=== PATIENT | male | born 1945 | race Caucasian/White ===

== ENCOUNTER 2019-01-18 15:57 | Inpatient (IN) | payer MEDICARE, OTHER ==
[~2019-01-18] VITALS: Ht 180.3 cm; Wt 70.9 kg
[2019-01-18 16:40] LABS: BASO % 1 % (0-3); EOS # 0.1 x10^3/uL (0.0-0.7); EOS % 4 % (0-3); HEMATOCRIT 21.5 % (39.0-53.0); HEMOGLOBIN 7.1 g/dL (13.0-17.5); LYMPH # 0.3 x10^3/uL (1.0-4.8); LYMPH % 14 % (24-48); MEAN CORPUSCULAR HEMOGLOBIN 30 pg (25-35); MEAN CORPUSCULAR HGB CONC 33 g/dL (31-37); MEAN CORPUSCULAR VOLUME 91 fL (79-100); MONO # 0.1 x10^3/uL (0.0-1.1); MONO % 4 % (0-9); NEUT # 1.8 x10^3uL (1.8-7.7); NEUT % 77 % (31-73); PLATELET COUNT 66 x10^3/uL (140-400); RED BLOOD COUNT 2.36 x10^6/uL (4.30-5.70); RED CELL DISTRIBUTION WIDTH 17.7 % (11.5-14.5); WHITE BLOOD COUNT 2.3 x10^3/uL (4.0-11.0)
--- NOTE | 2019-01-18 16:44 | PHYS DOC ---
Past Medical History Past Medical History: Diabetes-Type II, Hypertension, Renal Failure (ROD REY MD) Past Surgical History: Cholecystectomy (ROD REY MD) Adult General Chief Complaint Chief Complaint: SYNCOPE HPI HPI Patient is a 73-year-old male who presents to the emergency department for evaluation. He states he was getting hemodialysis, when he apparently passed out. He states he did not get a full dialysis session, approximately half session. He states he feels generally weak at this time. He denies any pain, including any chest pain or shortness of breath, dizziness or lightheadedness. He does appear somewhat pale. There are no alleviating or exacerbating factors to his symptoms otherwise. He does not have a history of coronary artery disease, however he is somewhat of a limited historian. There are no old records available for the patient at this facility. (ROD REY MD) Review of Systems Review of Systems Constitutional: Denies fever or chills [] Eyes: Denies change in visual acuity, redness, or eye pain [] HENT: Denies nasal congestion or sore throat [] Respiratory: Denies cough or shortness of breath [] Cardiovascular: The patient denies any shortness of breath, chest pain, palpitations, or orthopnea [] GI: Denies abdominal pain, nausea, vomiting, bloody stools or diarrhea [] : Denies dysuria or hematuria [] Musculoskeletal: Denies back pain or joint pain [] Integument: Denies rash or skin lesions [] Neurologic: Denies headache, focal weakness or sensory changes [] Endocrine: Denies polyuria or polydipsia [] All other systems were reviewed and found to be within normal limits, except as documented in this note. (ROD REY MD) Current Medications Current Medications Current Medications Medications (Trade) Dose Ordered Sig/David Start Time Stop Time Status Last Admin Dose Admin Sodium Chloride 250 ml @ 250 mls/hr 1X ONCE 01/18/19 16:45 01/18/19 17:44 DC 01/18/19 16:45 250 MLS/HR (KERMIT CHADWICK E DO) Allergies Allergies Allergies Coded Allergies Type Severity Reaction Last Updated Verified aspirin Allergy Unknown 01/18/19 Yes fish derived Allergy Unknown 01/18/19 Yes ibuprofen Allergy Unknown 01/18/19 Yes naproxen Allergy Unknown 01/18/19 Yes niacin Allergy Unknown 01/18/19 Yes nut - unspecified Allergy Unknown 01/18/19 Yes ([facility]oxanne ) Physical Exam Physical Exam PHYSICAL EXAM: CONSTITUTIONAL: Well developed, well nourished HEAD: normocephalic, atraumatic EENT: PERRL, EOMI. Conjunctivae appear pale, sclerae non-icteric; moist mucous membranes. NECK: Supple, non-tender; no meningismus. LUNGS: Lungs CTA, breathing even and unlabored. Normal air movement. HEART: Regular rate and rhythm, no murmur CHEST: No deformity; non-tender ABDOMEN: The abdomen is soft, and non-tender, no masses or bruits. EXTREM: Normal ROM; no deformity, no calf tenderness. Normal pulses palpable in all extremities. There is no pedal edema. There is an 80 fistula in the left upper extremity. SKIN: No rash; no diaphoresis NEURO: Alert; normal speech and cognition; CN's grossly intact; strength grossly intact without focal deficit. BACK: No CVA TTP. (ROD REY MD) Current Patient Data Vital Signs Vital Signs Date Time Temp Pulse Resp B/P (MAP) Pulse Ox O2 Delivery O2 Flow Rate FiO2 01/18/19 17:36 74 22 145/77 (99) 98 Room Air 01/18/19 16:[address] Lab Values Laboratory Tests Test 01/18/19 16:15 White Blood Count 2.3 x10^3/uL (4.0-11.0) L Red Blood Count 2.36 x10^6/uL (4.30-5.70) L Hemoglobin 7.1 g/dL (13.0-17.5) L Hematocrit 21.5 % (39.0-53.0) L Mean Corpuscular Volume 91 fL (79-100) Mean Corpuscular Hemoglobin 30 pg (25-35) Mean Corpuscular Hemoglobin Concent 33 g/dL (31-37) Red Cell Distribution Width 17.7 % (11.5-14.5) H Platelet Count 66 x10^3/uL (140-400) L Neutrophils (%) (Auto) 77 % (31-73) H Lymphocytes (%) (Auto) 14 % (24-48) L Monocytes (%) (Auto) 4 % (0-9) Eosinophils (%) (Auto) 4 % (0-3) H Basophils (%) (Auto) 1 % (0-3) Neutrophils # (Auto) 1.8 x10^3uL (1.8-7.7) Lymphocytes # (Auto) 0.3 x10^3/uL (1.0-4.8) L Monocytes # (Auto) 0.1 x10^3/uL (0.0-1.1) Eosinophils # (Auto) 0.1 x10^3/uL (0.0-0.7) Basophils # (Auto) 0.0 x10^3/uL (0.0-0.2) Segmented Neutrophils % 76 % (35-66) H Lymphocytes % 14 % (24-48) L Monocytes % 4 % (0-10) Eosinophils % 6 % (0-5) H Platelet Estimate Decreased (ADEQUATE) Hypochromasia Slight Anisocytosis Slight Ovalocytes Few Sodium Level 138 mmol/L (136-145) Potassium Level 4.2 mmol/L (3.5-5.1) Chloride Level 100 mmol/L (98-107) Carbon Dioxide Level 27 mmol/L (21-32) Anion Gap 11 (6-14) Blood Urea Nitrogen 41 mg/dL (8-26) H Creatinine 7.1 mg/dL (0.7-1.3) H Estimated GFR (Cockcroft-Gault) 7.6 BUN/Creatinine Ratio 6 (6-20) Glucose Level 116 mg/dL (70-99) H Calcium Level 8.4 mg/dL (8.5-10.1) L Magnesium Level 1.7 mg/dL (1.8-2.4) L Total Bilirubin 0.4 mg/dL (0.2-1.0) Aspartate Amino Transferase (AST) 17 U/L (15-37) Alanine Aminotransferase (ALT) 14 U/L (16-63) L Alkaline Phosphatase 55 U/L (46-116) Creatine Kinase 67 U/L (39-308) Creatine Kinase MB (Mass) 0.6 ng/mL (0.0-3.6) Creatine Kinase MB Relative Index 0.9 % (0-4) Troponin I Quantitative 0.022 ng/mL (0.000-0.055) Total Protein 5.5 g/dL (6.4-8.2) L Albumin 2.8 g/dL (3.4-5.0) L Albumin/Globulin Ratio 1.0 (1.0-1.7) Laboratory Tests 01/18/19 16:15 Laboratory Tests 01/18/19 16:15 (KERMIT CHADWICK DO) Lab Values Laboratory Tests Test 01/18/19 16:15 White Blood Count 2.3 x10^3/uL (4.0-11.0) L Red Blood Count 2.36 x10^6/uL (4.30-5.70) L Hemoglobin 7.1 g/dL (13.0-17.5) L Hematocrit 21.5 % (39.0-53.0) L Mean Corpuscular Volume 91 fL (79-100) Mean Corpuscular Hemoglobin 30 pg (25-35) Mean Corpuscular Hemoglobin Concent 33 g/dL (31-37) Red Cell Distribution Width 17.7 % (11.5-14.5) H Platelet Count 66 x10^3/uL (140-400) L Neutrophils (%) (Auto) 77 % (31-73) H Lymphocytes (%) (Auto) 14 % (24-48) L Monocytes (%) (Auto) 4 % (0-9) Eosinophils (%) (Auto) 4 % (0-3) H Basophils (%) (Auto) 1 % (0-3) Neutrophils # (Auto) 1.8 x10^3uL (1.8-7.7) Lymphocytes # (Auto) 0.3 x10^3/uL (1.0-4.8) L Monocytes # (Auto) 0.1 x10^3/uL (0.0-1.1) Eosinophils # (Auto) 0.1 x10^3/uL (0.0-0.7) Basophils # (Auto) 0.0 x10^3/uL (0.0-0.2) Platelet Estimate Pending Laboratory Tests 01/18/19 16:15 (ROD REY MD) EKG EKG Normal sinus rhythm with a normal rate, normal axis, normal intervals, there are no acute ischemic ST/T changes. (ROD REY MD) Radiology/Procedures Radiology/Procedures [] (ROD REY MD) Impressions: PROCEDURE: PORTABLE CHEST 1V PORTABLE CHEST 1V History: ER PATIENT. WEAKNESS. SYNCOPE AT DIALYSIS TODAY. PRIOR XRAY.. No prior study for comparison. The heart size is nonenlarged. There is mild infiltrates/atelectasis in the left lung base. There are surgical sutures in the left upper lobe. No pneumothorax. No large effusion. IMPRESSION: Mild infiltrate or atelectasis in the left lung base. Electronically signed by: Michael Bui MD (01/18/2019 5:46 PM) [facility] (KERMIT CHADWICK DO) Course & Med Decision Making Course & Med Decision Making Pt's Hemoglobin is similar to values from his recent blood test during dialysis, he has to values on 420, and 12/23, at the dialysis center that were hemoglobin of 7.3 and 7.2 respectively. 5:00 PM: Patient care was turned over to Dr. Pierce at shift change, pending labs, imaging and final disposition. Report given. [] (ROD REY MD) Course & Med Decision Making Chest x-ray shows mild atelectasis versus infiltrate. Patient does not have cough. No WBC elevation. Troponin is elevated but probably due to chronic elevation of creatinine. EKG shows no acute changes. Discussed results and plan of care patient. Patient states he usually goes to [facility] in [place]. Discussed case with Dr. Solorzano who is the hospitalist stucco mason who accepts admission. (KERMIT CHADWICK DO) Dragon Disclaimer Dragon Disclaimer This electronic medical record was generated, in whole or in part, using a voice recognition dictation system. (ROD REY MD) ROD REY MD January 18, 2019 16:44 KERMIT CHADWICK DO January 18, 2019 18:24
[2019-01-18] MEDS ORDERED: IV NORMAL SALINE 250ML 250 ML IV ONE (16:45)
[2019-01-18 16:55] LABS: CALCIUM 8.4 mg/dL (8.5-10.1); CREATININE 7.1 mg/dL (0.7-1.3); GFR 7.6; POTASSIUM 4.2 mmol/L (3.5-5.1)
[2019-01-18 16:59] LABS: ALBUMIN 2.8 g/dL (3.4-5.0); MAGNESIUM 1.7 mg/dL (1.8-2.4); TOTAL BILIRUBIN 0.4 mg/dL (0.2-1.0); TOTAL PROTEIN 5.5 g/dL (6.4-8.2)
[2019-01-18 17:35] LABS: % EOS 6 % (0-5); % LYMPHS 14 % (24-48); % MONOS 4 % (0-10); % SEGS 76 % (35-66)
[2019-01-18 17:36] LABS: HYPOCHROMIA SLIGHT; PLT ESTIMATE DECREASED (ADEQUATE)
[2019-01-18 17:37] LABS: ANISOCYTOSIS SLIGHT; OVALOCYTES FEW
--- NOTE | 2019-01-18 17:50 | RAD ---
PORTABLE CHEST 1V History: ER PATIENT. WEAKNESS. SYNCOPE AT DIALYSIS TODAY. PRIOR XRAY.. No prior study for comparison. The heart size is nonenlarged. There is mild infiltrates/atelectasis in the left lung base. There are surgical sutures in the left upper lobe. No pneumothorax. No large effusion. IMPRESSION: Mild infiltrate or atelectasis in the left lung base. Electronically signed by: Michael Bui MD (01/18/2019 5:46 PM) [facility]
[2019-01-18 19:00] VITALS: BP 136/65
--- NOTE | 2019-01-18 19:37 | PDOC1 ---
History and Physical Date of Admission: Date of Admission DATE: 01/18/19 TIME: 19:35 Chief Complaint: Problems: (1) Renal failure (2) Syncope Chief Complain: Syncope while on dialysis History of Present Illness: HPI: Patient is a 73-year-old male who presents to the emergency department for evaluation. He states he was getting hemodialysis, when he apparently passed out. He states he did not get a full dialysis session, approximately half session. He states he feels generally weak at this time. He denies any pain, including any chest pain or shortness of breath, dizziness or lightheadedness. He does appear somewhat pale. There are no alleviating or exacerbating factors to his symptoms otherwise. He does not have a history of coronary artery disease, however he is somewhat of a limited historian. There are no old records available for the patient at this facility. Past Medical/Surgical History: PMH/PSH: Diabetes hypertension renal failure on dialysis Allergies: Allergies: Coded Allergies: aspirin (Verified Allergy, Unknown, 01/18/19) fish derived (Verified Allergy, Unknown, 01/18/19) ibuprofen (Verified Allergy, Unknown, 01/18/19) naproxen (Verified Allergy, Unknown, 01/18/19) niacin (Verified Allergy, Unknown, 01/18/19) nut - unspecified (Verified Allergy, Unknown, 01/18/19) Family History: Family History: Diabetes Social History: Social Hisoty: He does not drink smoke or take drugs he was in the [employer] for 7 years Current Medications: Current Medications Current Medications Sodium Chloride 250 ml @ 250 mls/hr 1X ONCE IV Last administered on 01/18/19at 16:45; Start 01/18/19 at 16:45; Stop 01/18/19 at 17:44; Status DC ROS: Review of Systems Review of System REVIEW OF SYSTEMS: GENERAL: Denies weakness SKIN: No bruising, hair changes or rashes. EYES: No blurred, double or loss of vision. NOSE AND THROAT: No history of nosebleeds, hoarseness or sore throat. HEART: No history of palpitations, chest pain or shortness of breath on exertion. LUNGS: Denies cough, hemoptysis, wheezing or shortness of breath. GASTROINTESTINAL: Denies changes in appetite, nausea, vomiting, diarrhea or constipation. GENITOURINARY: No history of frequency, urgency, hesitancy or nocturia. NEUROLOGIC: Complains of a syncopal episode while on dialysis today PSYCHIATRIC: No history of panic, anxiety or depression. ENDOCRINE: No history of heat or cold intolerance, polyuria or polydipsia. EXTREMITIES: Denies muscle weakness, joint pain, pain on walking or stiffness. Physical Exam: Vital Signs: Vital Signs Date Time Temp Pulse Resp B/P (MAP) Pulse Ox O2 Delivery O2 Flow Rate FiO2 01/18/19 18:36 72 22 142/73 (96) 98 Room Air 01/18/19 16:00 97.8 97.8 Physcial Exam: GEN.: No apparent distress. Alert and oriented. HEENT: Head is normocephalic, atraumatic NECK: Supple, no JVD LUNGS: Clear to auscultation without rhonchi or wheezing HEART: RRR, S1, S2 present. Peripheral pulses intact ABDOMEN: Soft, nontender. Positive bowel sounds no organomegaly EXTREMITIES: Without any cyanosis, clubbing, or edema. Pedal pulses intact NEUROLOGIC: Normal speech, normal tone. A&O x 3 PSYCHIATRIC: Normal affect, normal mood. Stable SKIN: No ulcerations or rashes VASCULAR: Good capillary refill Labs: Labs: Laboratory Tests Test 01/18/19 16:15 White Blood Count 2.3 x10^3/uL (4.0-11.0) Red Blood Count 2.36 x10^6/uL (4.30-5.70) Hemoglobin 7.1 g/dL (13.0-17.5) Hematocrit 21.5 % (39.0-53.0) Mean Corpuscular Volume 91 fL (79-100) Mean Corpuscular Hemoglobin 30 pg (25-35) Mean Corpuscular Hemoglobin Concent 33 g/dL (31-37) Red Cell Distribution Width 17.7 % (11.5-14.5) Platelet Count 66 x10^3/uL (140-400) Neutrophils (%) (Auto) 77 % (31-73) Lymphocytes (%) (Auto) 14 % (24-48) Monocytes (%) (Auto) 4 % (0-9) Eosinophils (%) (Auto) 4 % (0-3) Basophils (%) (Auto) 1 % (0-3) Neutrophils # (Auto) 1.8 x10^3uL (1.8-7.7) Lymphocytes # (Auto) 0.3 x10^3/uL (1.0-4.8) Monocytes # (Auto) 0.1 x10^3/uL (0.0-1.1) Eosinophils # (Auto) 0.1 x10^3/uL (0.0-0.7) Basophils # (Auto) 0.0 x10^3/uL (0.0-0.2) Segmented Neutrophils % 76 % (35-66) Lymphocytes % 14 % (24-48) Monocytes % 4 % (0-10) Eosinophils % 6 % (0-5) Platelet Estimate Decreased (ADEQUATE) Hypochromasia Slight Anisocytosis Slight Ovalocytes Few Sodium Level 138 mmol/L (136-145) Potassium Level 4.2 mmol/L (3.5-5.1) Chloride Level 100 mmol/L (98-107) Carbon Dioxide Level 27 mmol/L (21-32) Anion Gap 11 (6-14) Blood Urea Nitrogen 41 mg/dL (8-26) Creatinine 7.1 mg/dL (0.7-1.3) Estimated GFR (Cockcroft-Gault) 7.6 BUN/Creatinine Ratio 6 (6-20) Glucose Level 116 mg/dL (70-99) Calcium Level 8.4 mg/dL (8.5-10.1) Magnesium Level 1.7 mg/dL (1.8-2.4) Total Bilirubin 0.4 mg/dL (0.2-1.0) Aspartate Amino Transf (AST/SGOT) 17 U/L (15-37) Alanine Aminotransferase (ALT/SGPT) 14 U/L (16-63) Alkaline Phosphatase 55 U/L (46-116) Creatine Kinase 67 U/L (39-308) Creatine Kinase MB (Mass) 0.6 ng/mL (0.0-3.6) Creatine Kinase MB Relative Index 0.9 % (0-4) Troponin I Quantitative 0.022 ng/mL (0.000-0.055) Total Protein 5.5 g/dL (6.4-8.2) Albumin 2.8 g/dL (3.4-5.0) Albumin/Globulin Ratio 1.0 (1.0-1.7) Laboratory Tests Test 5/2/19 16:15 White Blood Count 2.3 x10^3/uL (4.0-11.0) Red Blood Count 2.36 x10^6/uL (4.30-5.70) Hemoglobin 7.1 g/dL (13.0-17.5) Hematocrit 21.5 % (39.0-53.0) Mean Corpuscular Volume 91 fL (79-100) Mean Corpuscular Hemoglobin 30 pg (25-35) Mean Corpuscular Hemoglobin Concent 33 g/dL (31-37) Red Cell Distribution Width 17.7 % (11.5-14.5) Platelet Count 66 x10^3/uL (140-400) Neutrophils (%) (Auto) 77 % (31-73) Lymphocytes (%) (Auto) 14 % (24-48) Monocytes (%) (Auto) 4 % (0-9) Eosinophils (%) (Auto) 4 % (0-3) Basophils (%) (Auto) 1 % (0-3) Neutrophils # (Auto) 1.8 x10^3uL (1.8-7.7) Lymphocytes # (Auto) 0.3 x10^3/uL (1.0-4.8) Monocytes # (Auto) 0.1 x10^3/uL (0.0-1.1) Eosinophils # (Auto) 0.1 x10^3/uL (0.0-0.7) Basophils # (Auto) 0.0 x10^3/uL (0.0-0.2) Segmented Neutrophils % 76 % (35-66) Lymphocytes % 14 % (24-48) Monocytes % 4 % (0-10) Eosinophils % 6 % (0-5) Platelet Estimate Decreased (ADEQUATE) Hypochromasia Slight Anisocytosis Slight Ovalocytes Few Sodium Level 138 mmol/L (136-145) Potassium Level 4.2 mmol/L (3.5-5.1) Chloride Level 100 mmol/L (98-107) Carbon Dioxide Level 27 mmol/L (21-32) Anion Gap 11 (6-14) Blood Urea Nitrogen 41 mg/dL (8-26) Creatinine 7.1 mg/dL (0.7-1.3) Estimated GFR (Cockcroft-Gault) 7.6 BUN/Creatinine Ratio 6 (6-20) Glucose Level 116 mg/dL (70-99) Calcium Level 8.4 mg/dL (8.5-10.1) Magnesium Level 1.7 mg/dL (1.8-2.4) Total Bilirubin 0.4 mg/dL (0.2-1.0) Aspartate Amino Transf (AST/SGOT) 17 U/L (15-37) Alanine Aminotransferase (ALT/SGPT) 14 U/L (16-63) Alkaline Phosphatase 55 U/L (46-116) Creatine Kinase 67 U/L (39-308) Creatine Kinase MB (Mass) 0.6 ng/mL (0.0-3.6) Creatine Kinase MB Relative Index 0.9 % (0-4) Troponin I Quantitative 0.022 ng/mL (0.000-0.055) Total Protein 5.5 g/dL (6.4-8.2) Albumin 2.8 g/dL (3.4-5.0) Albumin/Globulin Ratio 1.0 (1.0-1.7) Images: Images Chest x-ray without acute changes Assessment/Plan Assessment/Plan Syncope while on dialysis Plan Cardiac monitoring Consult neurology and cardiology Consult nephrology Dialysis Tuesday Home meds Full code DVT prophylaxis Prognosis darrianed GM FAUSTIN III DO January 18, 2019 19:37
--- NOTE | 2019-01-18 21:09 | NUR ---
Pt arrived to unit @1900 per cart. Pt assisted to bed with one assist. Pt oriented to surroundings and call light vs obtained and stable. Poc explained assessment completed call placed in reach will resume care. Dr. Solorzano here to see pt [facility] pt unsure of home meds.
[2019-01-18] MEDS ORDERED: FOLI0.8T30 PO (21:23)
[2019-01-18] MEDS ORDERED: NORT25CA PO (21:23)
[2019-01-18] MEDS ORDERED: LORA10TA3 PO (21:23)
[2019-01-18] MEDS ORDERED: FLAX10003 PO (21:23)
[2019-01-18] MEDS ORDERED: ACET325T9 PO (21:23)
[2019-01-18] MEDS ORDERED: SERT100T8 PO (21:23)
[2019-01-18 22:06] VITALS: BP 131/68
[2019-01-19] VITALS (8 sets, daily range): BP systolic 107–127; BP diastolic 55–67
[2019-01-19] MEDS ORDERED: CETIRIZINE HCL 10 MG TABLET. PO PRN
[2019-01-19] MEDS ORDERED: MAGNESIUM SULFATE 2GM 50 ML IV ONE
[2019-01-19] MEDS ORDERED: ACETAMINOPHEN 325 MG TABLET. PO PRN
--- NOTE | 2019-01-19 07:03 | EKG ---
[facility] [address] [place] [address] Test Date: 2019-01-18 Test Time: 16:06:28 Pat Name: MICHAEL HARTLEY Department: Room: 210 1 Gender: M Inter Fold Roll Cutter: : 1945 Requested By: ROD REY Order Number: [id number] Reading MD: David Goodman Measurements Intervals [place] Rate: 73 P: 35 SD: 180 QRS: 22 QRSD: 72 T: 40 QT: 414 QTc: 460 Interpretive Statements SINUS RHYTHM Electronically Signed On 01-19-2019 10:12:37 CDT by David Goodman
--- NOTE | 2019-01-19 08:10 | PDOC ---
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 would be appropriate for Heme/Onc consultation ESRD on HD - will continue, next session tomorrow Abnormal CXR - left basilar infiltrate - treat for HCAP History of Present Illness History of Present Illness 73-year-old male [place] w/ PMHx ESRD on HD (OK) who presents to the emergency department for evaluation. He states he was getting hemodialysis, when he apparently passed out. He states he did not get a full dialysis session, approximately half session. He states he feels generally weak at this time. He denies any pain, including any chest pain or shortness of breath, dizziness or lightheadedness. He does appear somewhat pale. There are no alleviating or exacerbating factors to his symptoms otherwise. He does not have a history of coronary artery disease, however he is somewhat of a limited historian. There are no old records available for the patient at this facility. He is feeling better this morning. Awaiting echo, carotid dopplers. He has had these symptoms with dialysis previously. Vitals Vitals Vital Signs Date Time Temp Pulse Resp B/P (MAP) Pulse Ox O2 Delivery O2 Flow Rate FiO2 01/19/19 07:37 98.2 76 18 119/67 (84) 95 Room Air 98.2 Physical Exam General: Alert, Oriented X3, Cooperative Heart: Regular rate Lungs: Clear Abdomen: Normal bowel sounds, Soft Extremities: No clubbing, No cyanosis Skin: No rashes, No breakdown Labs LABS Laboratory Tests Test 01/18/19 16:15 White Blood Count 2.3 x10^3/uL (4.0-11.0) Red Blood Count 2.36 x10^6/uL (4.30-5.70) Hemoglobin 7.1 g/dL (13.0-17.5) Hematocrit 21.5 % (39.0-53.0) Mean Corpuscular Volume 91 fL (79-100) Mean Corpuscular Hemoglobin 30 pg (25-35) Mean Corpuscular Hemoglobin Concent 33 g/dL (31-37) Red Cell Distribution Width 17.7 % (11.5-14.5) Platelet Count 66 x10^3/uL (140-400) Neutrophils (%) (Auto) 77 % (31-73) Lymphocytes (%) (Auto) 14 % (24-48) Monocytes (%) (Auto) 4 % (0-9) Eosinophils (%) (Auto) 4 % (0-3) Basophils (%) (Auto) 1 % (0-3) Neutrophils # (Auto) 1.8 x10^3uL (1.8-7.7) Lymphocytes # (Auto) 0.3 x10^3/uL (1.0-4.8) Monocytes # (Auto) 0.1 x10^3/uL (0.0-1.1) Eosinophils # (Auto) 0.1 x10^3/uL (0.0-0.7) Basophils # (Auto) 0.0 x10^3/uL (0.0-0.2) Segmented Neutrophils % 76 % (35-66) Lymphocytes % 14 % (24-48) Monocytes % 4 % (0-10) Eosinophils % 6 % (0-5) Platelet Estimate Decreased (ADEQUATE) Hypochromasia Slight Anisocytosis Slight Ovalocytes Few Sodium Level 138 mmol/L (136-145) Potassium Level 4.2 mmol/L (3.5-5.1) Chloride Level 100 mmol/L (98-107) Carbon Dioxide Level 27 mmol/L (21-32) Anion Gap 11 (6-14) Blood Urea Nitrogen 41 mg/dL (8-26) Creatinine 7.1 mg/dL (0.7-1.3) Estimated GFR (Cockcroft-Gault) 7.6 BUN/Creatinine Ratio 6 (6-20) Glucose Level 116 mg/dL (70-99) Calcium Level 8.4 mg/dL (8.5-10.1) Magnesium Level 1.7 mg/dL (1.8-2.4) Total Bilirubin 0.4 mg/dL (0.2-1.0) Aspartate Amino Transf (AST/SGOT) 17 U/L (15-37) Alanine Aminotransferase (ALT/SGPT) 14 U/L (16-63) Alkaline Phosphatase 55 U/L (46-116) Creatine Kinase 67 U/L (39-308) Creatine Kinase MB (Mass) 0.6 ng/mL (0.0-3.6) Creatine Kinase MB Relative Index 0.9 % (0-4) Troponin I Quantitative 0.022 ng/mL (0.000-0.055) Total Protein 5.5 g/dL (6.4-8.2) Albumin 2.8 g/dL (3.4-5.0) Albumin/Globulin Ratio 1.0 (1.0-1.7) Assessment and Plan Assessmemt and Plan Problems Medical Problems: (1) Renal failure Status: Acute (2) Syncope Status: Acute Comment Review of Relevant I have reviewed the following items bhargav (where applicable) has been applied. Labs Laboratory Tests Test 01/18/19 16:15 White Blood Count 2.3 x10^3/uL (4.0-11.0) Red Blood Count 2.36 x10^6/uL (4.30-5.70) Hemoglobin 7.1 g/dL (13.0-17.5) Hematocrit 21.5 % (39.0-53.0) Mean Corpuscular Volume 91 fL (79-100) Mean Corpuscular Hemoglobin 30 pg (25-35) Mean Corpuscular Hemoglobin Concent 33 g/dL (31-37) Red Cell Distribution Width 17.7 % (11.5-14.5) Platelet Count 66 x10^3/uL (140-400) Neutrophils (%) (Auto) 77 % (31-73) Lymphocytes (%) (Auto) 14 % (24-48) Monocytes (%) (Auto) 4 % (0-9) Eosinophils (%) (Auto) 4 % (0-3) Basophils (%) (Auto) 1 % (0-3) Neutrophils # (Auto) 1.8 x10^3uL (1.8-7.7) Lymphocytes # (Auto) 0.3 x10^3/uL (1.0-4.8) Monocytes # (Auto) 0.1 x10^3/uL (0.0-1.1) Eosinophils # (Auto) 0.1 x10^3/uL (0.0-0.7) Basophils # (Auto) 0.0 x10^3/uL (0.0-0.2) Segmented Neutrophils % 76 % (35-66) Lymphocytes % 14 % (24-48) Monocytes % 4 % (0-10) Eosinophils % 6 % (0-5) Platelet Estimate Decreased (ADEQUATE) Hypochromasia Slight Anisocytosis Slight Ovalocytes Few Sodium Level 138 mmol/L (136-145) Potassium Level 4.2 mmol/L (3.5-5.1) Chloride Level 100 mmol/L (98-107) Carbon Dioxide Level 27 mmol/L (21-32) Anion Gap 11 (6-14) Blood Urea Nitrogen 41 mg/dL (8-26) Creatinine 7.1 mg/dL (0.7-1.3) Estimated GFR (Cockcroft-Gault) 7.6 BUN/Creatinine Ratio 6 (6-20) Glucose Level 116 mg/dL (70-99) Calcium Level 8.4 mg/dL (8.5-10.1) Magnesium Level 1.7 mg/dL (1.8-2.4) Total Bilirubin 0.4 mg/dL (0.2-1.0) Aspartate Amino Transf (AST/SGOT) 17 U/L (15-37) Alanine Aminotransferase (ALT/SGPT) 14 U/L (16-63) Alkaline Phosphatase 55 U/L (46-116) Creatine Kinase 67 U/L (39-308) Creatine Kinase MB (Mass) 0.6 ng/mL (0.0-3.6) Creatine Kinase MB Relative Index 0.9 % (0-4) Troponin I Quantitative 0.022 ng/mL (0.000-0.055) Total Protein 5.5 g/dL (6.4-8.2) Albumin 2.8 g/dL (3.4-5.0) Albumin/Globulin Ratio 1.0 (1.0-1.7) Laboratory Tests Test 01/18/19 16:15 White Blood Count 2.3 x10^3/uL (4.0-11.0) Red Blood Count 2.36 x10^6/uL (4.30-5.70) Hemoglobin 7.1 g/dL (13.0-17.5) Hematocrit 21.5 % (39.0-53.0) Mean Corpuscular Volume 91 fL (79-100) Mean Corpuscular Hemoglobin 30 pg (25-35) Mean Corpuscular Hemoglobin Concent 33 g/dL (31-37) Red Cell Distribution Width 17.7 % (11.5-14.5) Platelet Count 66 x10^3/uL (140-400) Neutrophils (%) (Auto) 77 % (31-73) Lymphocytes (%) (Auto) 14 % (24-48) Monocytes (%) (Auto) 4 % (0-9) Eosinophils (%) (Auto) 4 % (0-3) Basophils (%) (Auto) 1 % (0-3) Neutrophils # (Auto) 1.8 x10^3uL (1.8-7.7) Lymphocytes # (Auto) 0.3 x10^3/uL (1.0-4.8) Monocytes # (Auto) 0.1 x10^3/uL (0.0-1.1) Eosinophils # (Auto) 0.1 x10^3/uL (0.0-0.7) Basophils # (Auto) 0.0 x10^3/uL (0.0-0.2) Segmented Neutrophils % 76 % (35-66) Lymphocytes % 14 % (24-48) Monocytes % 4 % (0-10) Eosinophils % 6 % (0-5) Platelet Estimate Decreased (ADEQUATE) Hypochromasia Slight Anisocytosis Slight Ovalocytes Few Sodium Level 138 mmol/L (136-145) Potassium Level 4.2 mmol/L (3.5-5.1) Chloride Level 100 mmol/L (98-107) Carbon Dioxide Level 27 mmol/L (21-32) Anion Gap 11 (6-14) Blood Urea Nitrogen 41 mg/dL (8-26) Creatinine 7.1 mg/dL (0.7-1.3) Estimated GFR (Cockcroft-Gault) 7.6 BUN/Creatinine Ratio 6 (6-20) Glucose Level 116 mg/dL (70-99) Calcium Level 8.4 mg/dL (8.5-10.1) Magnesium Level 1.7 mg/dL (1.8-2.4) Total Bilirubin 0.4 mg/dL (0.2-1.0) Aspartate Amino Transf (AST/SGOT) 17 U/L (15-37) Alanine Aminotransferase (ALT/SGPT) 14 U/L (16-63) Alkaline Phosphatase 55 U/L (46-116) Creatine Kinase 67 U/L (39-308) Creatine Kinase MB (Mass) 0.6 ng/mL (0.0-3.6) Creatine Kinase MB Relative Index 0.9 % (0-4) Troponin I Quantitative 0.022 ng/mL (0.000-0.055) Total Protein 5.5 g/dL (6.4-8.2) Albumin 2.8 g/dL (3.4-5.0) Albumin/Globulin Ratio 1.0 (1.0-1.7) Medications Current Medications Sodium Chloride 250 ml @ 250 mls/hr 1X ONCE IV Last administered on 01/18/19at 16:45; Start 01/18/19 at 16:45; Stop 01/18/19 at 17:44; Status DC Acetaminophen (Tylenol) 650 mg PRN Q6HRS PRN PO PAIN; Start 01/19/19 at 00:00 Vitamin B Complex/ Vitamin C (Surekha-Vic) 1 tab DAILY PO ; Start 01/19/19 at 09:00 Nortriptyline HCl (Pamelor) 25 mg QHS PO ; Start 01/19/19 at 21:00 Non-Formulary Medication (Flaxseed Oil (Flax Oil)) 1,000 mg DAILY PO ; Start 01/19/19 at 09:00; Status UNV Cetirizine HCl (ZyrTEC) 10 mg PRN Q48HR PRN PO ALLERGIES; Start 01/19/19 at 00:00 Sertraline HCl (Zoloft) 200 mg DAILY PO ; Start 01/19/19 at 09:00 Magnesium Sulfate 50 ml @ 25 mls/hr 1X ONCE IV Last administered on 01/19/19at 00:16; Start 01/19/19 at 00:00; Stop 01/19/19 at 01:59; Status DC Active Scripts Active Reported Tylenol (Acetaminophen) 325 Mg Tablet 1-2 Tab PO PRN Q6HRS PRN Flax Oil (Flaxseed Oil) 1,000 Mg Capsule 1,000 Mg PO DAILY Sertraline Hcl 100 Mg Tablet 200 Mg PO DAILY Nortriptyline Hcl 25 Mg Capsule 1 Cap PO QHS Renal Vitamin Tablet (Folic Acid/Vit Bcomp,C) 0.8 Mg Tablet 0.8 Mg PO DAILY Loratadine 10 Mg Tablet 1 Tab PO PRN Q48HR Vitals/I & O Vital Sign - Last 24 Hours 01/18/19 01/18/19 01/18/19 01/18/19 16:00 16:36 17:36 18:36 Temp 97.8 97.8 Pulse 70 71 74 72 Resp 20 22 22 22 B/P (MAP) 122/70 (87) 143/80 (101) 145/77 (99) 142/73 (96) Pulse Ox 98 98 98 98 O2 Delivery Room Air Room Air Room Air Room Air 01/18/19 01/18/19 01/18/19 01/19/19 19:00 19:30 22:06 03:33 Temp 97.7 98.1 97.7 98.1 Pulse 68 77 75 Resp 18 18 16 B/P (MAP) 136/65 (88) 131/68 (89) 118/67 (84) Pulse Ox 97 96 O2 Delivery Room Air Room Air Room Air Room Air 01/19/19 07:37 Temp 98.2 98.2 Pulse 76 Resp 18 B/P (MAP) 119/67 (84) Pulse Ox 95 O2 Delivery Room Air Intake and Output 01/18/19 01/18/19 01/19/19 15:00 23:00 07:00 Intake Total 240 ml 50 ml Output Total 50 ml Balance 240 ml 0 ml Images Mild infiltrate or atelectasis in the left lung base. SHAMAR PONCE MD January 19, 2019 08:10
[2019-01-19] MEDS: FOLIC/VIT B COMP W-C (RENAL) TABLET. PO SCH (08:50)
[2019-01-19] MEDS: SERTRALINE 50 MG TABLET. PO SCH (08:51)
[2019-01-19] MEDS ORDERED: NON FORMULARY ITEM (Flaxseed Oil (Flax Oil) 1,000 MG) PO SCH (09:00)
[2019-01-19 09:24] LABS: BASO % 1 % (0-3); EOS # 0.1 x10^3/uL (0.0-0.7); EOS % 4 % (0-3); HEMATOCRIT 22.9 % (39.0-53.0); HEMOGLOBIN 7.4 g/dL (13.0-17.5); LYMPH # 0.6 x10^3/uL (1.0-4.8); LYMPH % 21 % (24-48); MEAN CORPUSCULAR HEMOGLOBIN 30 pg (25-35); MEAN CORPUSCULAR HGB CONC 32 g/dL (31-37); MEAN CORPUSCULAR VOLUME 92 fL (79-100); MONO # 0.2 x10^3/uL (0.0-1.1); MONO % 7 % (0-9); NEUT % 67 % (31-73); PLATELET COUNT 65 x10^3/uL (140-400); RED BLOOD COUNT 2.49 x10^6/uL (4.30-5.70); RED CELL DISTRIBUTION WIDTH 17.7 % (11.5-14.5); WHITE BLOOD COUNT 2.9 x10^3/uL (4.0-11.0)
--- NOTE | 2019-01-19 09:41 | PDOC2 ---
NEUROLOGY CONSULT Date of Admission Date of Admission DATE: 01/19/19 TIME: 09:33 Reason for Consult Reason for Consult: Syncope Referring Physician Referring Physician: Dr. Solorzano Source Source: Chart review, Patient History of Present Illness History of Present Illness The patient is a 73-year-old right-handed male who fainted on dialysis. He says that he has fainted several times throughout his life. He has never had convulsive activity, stroke, prior seizure, but did have head injuries as a child. There is no tongue biting, incontinence, or prolonged post-ictal state. He describes symptoms of orthostatic hypotension. Past Medical History Cardiovascular: HTN, Other (orthostatic hypotension) Heme/Onc: Anemia NOS Psych: Anxiety, Depression Renal/: Chronic renal failure ( on dialysis) Endocrine: Diabetes Past Surgical History Past Surgical History: Cholecystectomy, Cataract Removal, Other (Lobectomy) Family History Family History: Cancer, CAD Social History Social History Single, retired, no alcohol or tobacco Current Medications Current Medications Current Medications Sodium Chloride 250 ml @ 250 mls/hr 1X ONCE IV Last administered on 01/18/19at 16:45; Start 01/18/19 at 16:45; Stop 01/18/19 at 17:44; Status DC Acetaminophen (Tylenol) 650 mg PRN Q6HRS PRN PO PAIN; Start 01/19/19 at 00:00 Vitamin B Complex/ Vitamin C (Surekha-Vic) 1 tab DAILY PO Last administered on 01/19/19at 08:50; Start 01/19/19 at 09:00 Nortriptyline HCl (Pamelor) 25 mg QHS PO ; Start 01/19/19 at 21:00 Non-Formulary Medication (Flaxseed Oil (Flax Oil)) 1,000 mg DAILY PO ; Start 01/19/19 at 09:00; Status UNV Cetirizine HCl (ZyrTEC) 10 mg PRN Q48HR PRN PO ALLERGIES Last administered on 01/19/19at 08:51; Start 01/19/19 at 00:00 Sertraline HCl (Zoloft) 200 mg DAILY PO Last administered on 01/19/19at 08:51; Start 01/19/19 at 09:00 Magnesium Sulfate 50 ml @ 25 mls/hr 1X ONCE IV Last administered on 01/19/19at 00:16; Start 01/19/19 at 00:00; Stop 01/19/19 at 01:59; Status DC Active Scripts Active Reported Tylenol (Acetaminophen) 325 Mg Tablet 1-2 Tab PO PRN Q6HRS PRN Flax Oil (Flaxseed Oil) 1,000 Mg Capsule 1,000 Mg PO DAILY Sertraline Hcl 100 Mg Tablet 200 Mg PO DAILY Nortriptyline Hcl 25 Mg Capsule 1 Cap PO QHS Renal Vitamin Tablet (Folic Acid/Vit Bcomp,C) 0.8 Mg Tablet 0.8 Mg PO DAILY Loratadine 10 Mg Tablet 1 Tab PO PRN Q48HR Allergies Allergies: Coded Allergies: aspirin (Verified Allergy, Unknown, 01/18/19) fish derived (Verified Allergy, Unknown, 01/18/19) ibuprofen (Verified Allergy, Unknown, 01/18/19) naproxen (Verified Allergy, Unknown, 01/18/19) niacin (Verified Allergy, Unknown, 01/18/19) nut - unspecified (Verified Allergy, Unknown, 01/18/19) ROS Review of System Negative for fever, chills, weight loss, shortness of breath, chest pain, indigestion, hematochezia, melena, and dysuria. Full 14-point review of systems is negative. Physical Exam Physical Examination General: Well-developed, well-nourished white male in no acute distress HEENT: Normocephalic andatraumatic. Temporal arteriespulsatile and nontender. Neck: Supple without bruit, no meningismus Musculoskeletal: Stability:see neurologic. Gait exam:see neurologic. Tone:see neurologic.Strength:see neurologic. Neurological: Mental Status:intact, orientation, memory, attention span/concentration, language, fund of knowledge normal. Cranial Nerves:Pupils equal and reactive to light, extraocular movements areintact, visual rg are full to confrontation. Facial sensation is normal. There is no facial asymmetry. Vestibulo-ocular reflex is intact. Palate elevates and tongue protrudes in midline. All other cranial related problems are negative except as mentioned before.Reflexes:1+ and symmetric with flexor plantar responses. Motor:5/5 strength with normal tone and bulk. Coordination:Finger-nose finger and eqan-ob-rxfy testing are normal. Rapid alternating movements and fine finger movements are intact. Gait:Normal, including tandem. Sensory: stocking loss Vitals VITALS Vital Signs Date Time Temp Pulse Resp B/P (MAP) Pulse Ox O2 Delivery O2 Flow Rate FiO2 01/19/19 07:37 98.2 76 18 119/67 (84) 95 Room Air 98.2 Labs Labs Laboratory Tests Test 01/18/19 16:15 White Blood Count 2.3 x10^3/uL (4.0-11.0) Red Blood Count 2.36 x10^6/uL (4.30-5.70) Hemoglobin 7.1 g/dL (13.0-17.5) Hematocrit 21.5 % (39.0-53.0) Mean Corpuscular Volume 91 fL (79-100) Mean Corpuscular Hemoglobin 30 pg (25-35) Mean Corpuscular Hemoglobin Concent 33 g/dL (31-37) Red Cell Distribution Width 17.7 % (11.5-14.5) Platelet Count 66 x10^3/uL (140-400) Neutrophils (%) (Auto) 77 % (31-73) Lymphocytes (%) (Auto) 14 % (24-48) Monocytes (%) (Auto) 4 % (0-9) Eosinophils (%) (Auto) 4 % (0-3) Basophils (%) (Auto) 1 % (0-3) Neutrophils # (Auto) 1.8 x10^3uL (1.8-7.7) Lymphocytes # (Auto) 0.3 x10^3/uL (1.0-4.8) Monocytes # (Auto) 0.1 x10^3/uL (0.0-1.1) Eosinophils # (Auto) 0.1 x10^3/uL (0.0-0.7) Basophils # (Auto) 0.0 x10^3/uL (0.0-0.2) Segmented Neutrophils % 76 % (35-66) Lymphocytes % 14 % (24-48) Monocytes % 4 % (0-10) Eosinophils % 6 % (0-5) Platelet Estimate Decreased (ADEQUATE) Hypochromasia Slight Anisocytosis Slight Ovalocytes Few Sodium Level 138 mmol/L (136-145) Potassium Level 4.2 mmol/L (3.5-5.1) Chloride Level 100 mmol/L (98-107) Carbon Dioxide Level 27 mmol/L (21-32) Anion Gap 11 (6-14) Blood Urea Nitrogen 41 mg/dL (8-26) Creatinine 7.1 mg/dL (0.7-1.3) Estimated GFR (Cockcroft-Gault) 7.6 BUN/Creatinine Ratio 6 (6-20) Glucose Level 116 mg/dL (70-99) Calcium Level 8.4 mg/dL (8.5-10.1) Magnesium Level 1.7 mg/dL (1.8-2.4) Total Bilirubin 0.4 mg/dL (0.2-1.0) Aspartate Amino Transf (AST/SGOT) 17 U/L (15-37) Alanine Aminotransferase (ALT/SGPT) 14 U/L (16-63) Alkaline Phosphatase 55 U/L (46-116) Creatine Kinase 67 U/L (39-308) Creatine Kinase MB (Mass) 0.6 ng/mL (0.0-3.6) Creatine Kinase MB Relative Index 0.9 % (0-4) Troponin I Quantitative 0.022 ng/mL (0.000-0.055) Total Protein 5.5 g/dL (6.4-8.2) Albumin 2.8 g/dL (3.4-5.0) Albumin/Globulin Ratio 1.0 (1.0-1.7) Thyroid Stimulating Hormone (TSH) 1.512 uIU/mL (0.358-3.74) Laboratory Tests Test 01/18/19 16:15 White Blood Count 2.3 x10^3/uL (4.0-11.0) Red Blood Count 2.36 x10^6/uL (4.30-5.70) Hemoglobin 7.1 g/dL (13.0-17.5) Hematocrit 21.5 % (39.0-53.0) Mean Corpuscular Volume 91 fL (79-100) Mean Corpuscular Hemoglobin 30 pg (25-35) Mean Corpuscular Hemoglobin Concent 33 g/dL (31-37) Red Cell Distribution Width 17.7 % (11.5-14.5) Platelet Count 66 x10^3/uL (140-400) Neutrophils (%) (Auto) 77 % (31-73) Lymphocytes (%) (Auto) 14 % (24-48) Monocytes (%) (Auto) 4 % (0-9) Eosinophils (%) (Auto) 4 % (0-3) Basophils (%) (Auto) 1 % (0-3) Neutrophils # (Auto) 1.8 x10^3uL (1.8-7.7) Lymphocytes # (Auto) 0.3 x10^3/uL (1.0-4.8) Monocytes # (Auto) 0.1 x10^3/uL (0.0-1.1) Eosinophils # (Auto) 0.1 x10^3/uL (0.0-0.7) Basophils # (Auto) 0.0 x10^3/uL (0.0-0.2) Segmented Neutrophils % 76 % (35-66) Lymphocytes % 14 % (24-48) Monocytes % 4 % (0-10) Eosinophils % 6 % (0-5) Platelet Estimate Decreased (ADEQUATE) Hypochromasia Slight Anisocytosis Slight Ovalocytes Few Sodium Level 138 mmol/L (136-145) Potassium Level 4.2 mmol/L (3.5-5.1) Chloride Level 100 mmol/L (98-107) Carbon Dioxide Level 27 mmol/L (21-32) Anion Gap 11 (6-14) Blood Urea Nitrogen 41 mg/dL (8-26) Creatinine 7.1 mg/dL (0.7-1.3) Estimated GFR (Cockcroft-Gault) 7.6 BUN/Creatinine Ratio 6 (6-20) Glucose Level 116 mg/dL (70-99) Calcium Level 8.4 mg/dL (8.5-10.1) Magnesium Level 1.7 mg/dL (1.8-2.4) Total Bilirubin 0.4 mg/dL (0.2-1.0) Aspartate Amino Transf (AST/SGOT) 17 U/L (15-37) Alanine Aminotransferase (ALT/SGPT) 14 U/L (16-63) Alkaline Phosphatase 55 U/L (46-116) Creatine Kinase 67 U/L (39-308) Creatine Kinase MB (Mass) 0.6 ng/mL (0.0-3.6) Creatine Kinase MB Relative Index 0.9 % (0-4) Troponin I Quantitative 0.022 ng/mL (0.000-0.055) Total Protein 5.5 g/dL (6.4-8.2) Albumin 2.8 g/dL (3.4-5.0) Albumin/Globulin Ratio 1.0 (1.0-1.7) Thyroid Stimulating Hormone (TSH) 1.512 uIU/mL (0.358-3.74) Assessment/Plan Assessment/Plan Impression: * The patient became lightheaded and fainted during dialysis and has a history of fainting and orthostatic hypotension. He does have diabetes and most likely has an autonomic component to his neuropathy. I find no evidence of central nervous system disease such as stroke, seizure, or other intracranial process. * Diabetic neuropathy with autonomic component Recommendations: * I've ordered Carotid Doppler studies for completeness although it is very rare for carotid disease to cause syncope in isolation. * Otherwise I see no need for further neurological studies such as imaging the brain or EEG * Consider midodrine, blood pressure a little high now though * okay for discharge when medically stable. Thank you for letting me help the patient's care. COLLINS BOYD MD January 19, 2019 09:41
--- NOTE | 2019-01-19 09:44 | PDOC2 ---
CARDIAC CONSULT DATE OF CONSULT Date of Consult DATE: 01/19/19 TIME: 08 REASON FOR CONSULT Reason for Consult: syncope REFERRING PHYSICIAN Referring Physician: Rashad SOURCE Source: Chart review, Patient HISTORY OF PRESENT ILLNESS HISTORY OF PRESENT ILLNESS This is a pleasant 73 yo male admitted for complains of passing out. Pt was having dialysis yesterday and was interrupted as he lost consciousness. It was unclear how long he remained unconscious but no notation of arrhythmias and unclearwhat his BP at that time. Prior to his syncope, he does not remember any presyncopal symptoms. Denies any shakiness, visual/auditory disturbances, chest pain or SOA. No nausea or NOLAN or sensation of palpitations. No facial tingling flushed feeling. No bowel or bladder incontinence. He does not take any BP meds but he is diabetic and unclear what his BG at that time and he said he takes DM med but not insulin and not listed in his med list. No prior hx of arrhythmias, CAD. He did passed out last yr and that was after dialysis was initiated and he started on HD 03/2018. No complains of frequent dizziness or changes in activity tolerance. He ate breakfast yesterday mornign and actually drink adequate amount of fluids but felt exhausted early on then around noon during his dialysis is when he passed out. No recent falls or any injury. No past CVA or VTE. PAST MEDICAL HISTORY Cardiovascular: Syncope Pulmonary: Other (lung fungal infection) CENTRAL NERVOUS SYSTEM: Other (No pertinent history) GI: No pertinent hx Heme/Onc: Anemia NOS Hepatobiliary: Cholelithiasis Psych: No pertinent hx Musculoskeletal: Osteoarthritis Rheumatologic: No pertinent hx Infectious disease: No pertinent hx ENT: Other (nasal surgery/cataract) Renal/: No pertinent hx Endocrine: Diabetes (2) Dermatology: No pertinent hx PAST SURGICAL HISTORY Past Surgical History: Cataract Removal, Other (nasal surgery; L arm AV fistula [id number]) FAMILY HISTORY Family History noncontributory to CV SOCIAL HISTORY Smoke: Quit (20 yrs ago) ALCOHOL: none Drugs: None Lives: Alone CURRENT MEDICATIONS CURRENT MEDICATIONS Current Medications Medications (Trade) Dose Ordered Sig/David Route PRN Reason Start Time Stop Time Status Last Admin Dose Admin Sodium Chloride 250 ml @ 250 mls/hr 1X ONCE IV 01/18/19 16:45 01/18/19 17:44 DC 01/18/19 16:45 Vitamin B Complex/ Vitamin C (Surekha-Vic) 1 tab DAILY PO 01/19/19 09:00 01/19/19 08:50 Cetirizine HCl (ZyrTEC) 10 mg PRN Q48HR PRN PO ALLERGIES 01/19/19 00:00 01/19/19 08:51 Sertraline HCl (Zoloft) 200 mg DAILY PO 01/19/19 09:00 01/19/19 08:51 Magnesium Sulfate 50 ml @ 25 mls/hr 1X ONCE IV 01/19/19 00:00 01/19/19 01:59 DC 01/19/19 00:16 ALLERGIES ALLERGIES: Coded Allergies: aspirin (Verified Allergy, Unknown, 01/18/19) fish derived (Verified Allergy, Unknown, 01/18/19) ibuprofen (Verified Allergy, Unknown, 01/18/19) naproxen (Verified Allergy, Unknown, 01/18/19) niacin (Verified Allergy, Unknown, 01/18/19) nut - unspecified (Verified Allergy, Unknown, 01/18/19) ROS Review of System 14 point ROS evaluated with pertinent positives noted per HPI PHYSICAL EXAM General: Alert, Oriented X3, Cooperative, No acute distress HEENT: Atraumatic, Mucous membr. moist/pink Lungs: Clear to auscultation, Normal air movement Heart: Regular rate (SR), Normal S1, Normal S2, Other (2/6 systolic murmur to LLS border) Abdomen: Soft, No tenderness Extremities: Other (trace LE edema) Skin: No breakdown, No significant lesion Neuro: Normal speech, Sensation intact Psych/Mental Status: Mental status NL, Mood NL MUSCULOSKELETAL: Osteoarthritic changes both hands VITALS VITALS Vital Signs Date Time Temp Pulse Resp B/P (MAP) Pulse Ox O2 Delivery O2 Flow Rate FiO2 01/19/19 07:37 98.2 76 18 119/67 (84) 95 Room Air 98.2 LABS Lab: Laboratory Tests Test 01/18/19 16:15 White Blood Count 2.3 x10^3/uL (4.0-11.0) Red Blood Count 2.36 x10^6/uL (4.30-5.70) Hemoglobin 7.1 g/dL (13.0-17.5) Hematocrit 21.5 % (39.0-53.0) Mean Corpuscular Volume 91 fL (79-100) Mean Corpuscular Hemoglobin 30 pg (25-35) Mean Corpuscular Hemoglobin Concent 33 g/dL (31-37) Red Cell Distribution Width 17.7 % (11.5-14.5) Platelet Count 66 x10^3/uL (140-400) Neutrophils (%) (Auto) 77 % (31-73) Lymphocytes (%) (Auto) 14 % (24-48) Monocytes (%) (Auto) 4 % (0-9) Eosinophils (%) (Auto) 4 % (0-3) Basophils (%) (Auto) 1 % (0-3) Neutrophils # (Auto) 1.8 x10^3uL (1.8-7.7) Lymphocytes # (Auto) 0.3 x10^3/uL (1.0-4.8) Monocytes # (Auto) 0.1 x10^3/uL (0.0-1.1) Eosinophils # (Auto) 0.1 x10^3/uL (0.0-0.7) Basophils # (Auto) 0.0 x10^3/uL (0.0-0.2) Segmented Neutrophils % 76 % (35-66) Lymphocytes % 14 % (24-48) Monocytes % 4 % (0-10) Eosinophils % 6 % (0-5) Platelet Estimate Decreased (ADEQUATE) Hypochromasia Slight Anisocytosis Slight Ovalocytes Few Sodium Level 138 mmol/L (136-145) Potassium Level 4.2 mmol/L (3.5-5.1) Chloride Level 100 mmol/L (98-107) Carbon Dioxide Level 27 mmol/L (21-32) Anion Gap 11 (6-14) Blood Urea Nitrogen 41 mg/dL (8-26) Creatinine 7.1 mg/dL (0.7-1.3) Estimated GFR (Cockcroft-Gault) 7.6 BUN/Creatinine Ratio 6 (6-20) Glucose Level 116 mg/dL (70-99) Calcium Level 8.4 mg/dL (8.5-10.1) Magnesium Level 1.7 mg/dL (1.8-2.4) Total Bilirubin 0.4 mg/dL (0.2-1.0) Aspartate Amino Transf (AST/SGOT) 17 U/L (15-37) Alanine Aminotransferase (ALT/SGPT) 14 U/L (16-63) Alkaline Phosphatase 55 U/L (46-116) Creatine Kinase 67 U/L (39-308) Creatine Kinase MB (Mass) 0.6 ng/mL (0.0-3.6) Creatine Kinase MB Relative Index 0.9 % (0-4) Troponin I Quantitative 0.022 ng/mL (0.000-0.055) Total Protein 5.5 g/dL (6.4-8.2) Albumin 2.8 g/dL (3.4-5.0) Albumin/Globulin Ratio 1.0 (1.0-1.7) Thyroid Stimulating Hormone (TSH) 1.512 uIU/mL (0.358-3.74) ASSESSMENT/PLAN ASSESSMENT/PLAN 1. Syncope: suspect vasovagal likely response from HD. Unclear duration. Doubt any arrhythmias. None in tele so far. BP stable 2. ESRD 3. DM2: unclear what his meds are but no insulin. 4. Pancytopenia: with Hgb at 7.1, Unknown what his typical range is, no obvious bleed so far. Recommendations 1. TTE, TSH, lipids. 2. Fluid off loading per HD 3. Check orthostatic readings. ARPIT WELLS APRN January 19, 2019 09:44
[2019-01-19 09:46] LABS: ALBUMIN 2.6 g/dL (3.4-5.0); CALCIUM 8.3 mg/dL (8.5-10.1); CREATININE 8.9 mg/dL (0.7-1.3); GFR 5.9; PHOSPHORUS 6.8 mg/dL (2.6-4.7)
[2019-01-19 09:50] LABS: POTASSIUM 5.3 mmol/L (3.5-5.1)
[2019-01-19 10:13] LABS: CHOLESTEROL/HDL RATIO 4.4
--- NOTE | 2019-01-19 10:49 | CARD ---
MR#: [id number] Date of Study: 01/19/2019 Ordering Physician: ARPIT WELLS, Referring Physician: GM FAUSTIN Tech: Anum Ortiz RDCS APPROVED REPORT EXAM: Two-dimensional and M-mode echocardiogram with Doppler and color Doppler. Other Information Quality : GoodHR: 75bpm Rhythm : NSR INDICATION Syncope 2D DIMENSIONS RVDd3.3 (2.9-3.5cm)Left Atrium(2D)3.6 (1.6-4.0cm) IVSd1.0 (0.7-1.1cm)Aortic Root(2D)3.7 (2.0-3.7cm) LVDd4.3 (3.9-5.9cm)LVOT Diameter2.2 (1.8-2.4cm) PWd1.1 (0.7-1.1cm)LVDs2.9 (2.5-4.0cm) FS (%) 31.3 %SV49.2 ml LVEF(%)59.4 (>50%) M-Mode DIMENSIONS Left Atrium(MM)3.47 (2.5-4.0cm)Aortic Root2.98 (2.2-3.7cm) Aortic Valve AoV Peak Fahad.129.1cm/sAoV VTI26.3cm AO Peak GR.6.7mmHgLVOT Peak Fahad.118.3cm/s AO Mean GR.3mmHgAVA (VMAX)3.55cm2 ELENITA (VTI)3.50cm2 Mitral Valve MV E Egiwvgrp38.9cm/sMV DECEL OIGE777ko MV A Pytzxfsm64.4cm/sE/A Ratio0.9 Pulmonary Valve PV Peak Panbdxdo62.3cm/s Tricuspid Valve TR P. Hnxliqjs757cl/sRAP YBENHRZZ2bdZn TR Peak Gr.71hiQiIECN62vkSs LEFT VENTRICLE The left ventricle is normal size. There is normal left ventricular wall thickness. The left ventricu lar systolic function is normal. The Ejection Fraction is 60%. There is normal LV segmental wall castro on. Transmitral Doppler flow pattern is Grade I-abnormal relaxation pattern. RIGHT VENTRICLE The right ventricle is normal size. There is normal right ventricular wall thickness. The right ventr icular systolic function is normal. ATRIA The left atrium size is normal. The right atrium size is normal. The interatrial septum is intact wit h no evidence for an atrial septal defect or patent foramen ovale as noted on 2-D or Doppler imaging. AORTIC VALVE The aortic valve is normal in structure and function. The aortic valve is trileaflet. Doppler and Col or Flow revealed no significant aortic regurgitation. There is no significant aortic valvular stenosi s. MITRAL VALVE The mitral valve is normal in structure and function. There is no evidence of mitral valve prolapse. There is no mitral valve stenosis. Doppler and Color-flow revealed trace to mild mitral regurgitation . TRICUSPID VALVE The tricuspid valve is normal in structure and function. Doppler and Color Flow revealed trace tricus pid regurgitation. The PA pressure was estimated at 32 mmHg. There is no tricuspid valve prolapse or vegetation. There is no tricuspid valve stenosis. PULMONIC VALVE The pulmonic valve is not well visualized. Doppler and Color Flow revealed no pulmonic valvular regur gitation. There is no pulmonic valvular stenosis. GREAT VESSELS The aortic root is normal in size. The ascending aorta is normal in size. The IVC is normal in size a nd collapses >50% with inspiration. PERICARDIAL EFFUSION There is no evidence of significant pericardial effusion. Critical Notification Critical Value: No <Conclusion> The left ventricular systolic function is normal. The Ejection Fraction is 60%. There is normal LV segmental wall motion. Trace to mild mitral regurgitation. Trace tricuspid regurgitation. The PA pressure was estimated at 32 mmHg. There is no evidence of significant pericardial effusion. Signed by : Jonny Cheung, Electronically Approved : 01/19/2019 10:49:02
--- NOTE | 2019-01-19 11:32 | NUR ---
SS following for discharge planning. SS reviewed pt chart. Pt is from home and is currently on room air. No discharge needs noted at this time. SS will continue to follow for pending discharge needs.
--- NOTE | 2019-01-19 12:57 | PDOC2 ---
CONSULT Date of Consult Date of Consult DATE: 01/19/19 TIME: 12:31 Reason for Consult Reason for Consult: ESRD Source Source: Chart review, Patient History of Present Illness Reason for Visit: 73-year-old CM, w/ ESRD on HD TTS at [facility], he was on HD yesterday when he apparently passed out and as per AUCTIONEER ART had slurred speech , recd HD for 1 hr 45 mins and was sent to ED He states he is feeling better. He denies any any chest pain or shortness of breath, dizziness or lightheadedness. There are no alleviating or exacerbating factors to his symptoms otherwise. He does not have a history of coronary artery disease, however he is somewhat of a limited historian. There are no old records available for the patient at this facility. Past Medical History Cardiovascular: Syncope Pulmonary: Other (lung fungal infection) CENTRAL NERVOUS SYSTEM: Other (No pertinent history) GI: No pertinent hx Heme/Onc: Anemia NOS Hepatobiliary: Cholelithiasis Psych: No pertinent hx Musculoskeletal: Osteoarthritis Rheumatologic: No pertinent hx Infectious disease: No pertinent hx ENT: Other (nasal surgery/cataract) Renal/: No pertinent hx Endocrine: Diabetes (2) Dermatology: No pertinent hx Past Surgical History Past Surgical History: Cataract Removal, Other (nasal surgery; L arm AV fistula [id number]) Social History Quit (20 yrs ago) ALCOHOL: none Drugs: None Lives: Alone Current Problem List Problem List Problems Medical Problems: (1) Renal failure Status: Acute (2) Syncope Status: Acute Current Medications Current Medications Current Medications Sodium Chloride 250 ml @ 250 mls/hr 1X ONCE IV Last administered on 01/18/19at 16:45; Start 01/18/19 at 16:45; Stop 01/18/19 at 17:44; Status DC Acetaminophen (Tylenol) 650 mg PRN Q6HRS PRN PO PAIN; Start 01/19/19 at 00:00 Vitamin B Complex/ Vitamin C (Surekha-Vic) 1 tab DAILY PO Last administered on 01/19/19at 08:50; Start 01/19/19 at 09:00 Nortriptyline HCl (Pamelor) 25 mg QHS PO ; Start 01/19/19 at 21:00 Non-Formulary Medication (Flaxseed Oil (Flax Oil)) 1,000 mg DAILY PO ; Start 01/19/19 at 09:00; Status UNV Cetirizine HCl (ZyrTEC) 10 mg PRN Q48HR PRN PO ALLERGIES Last administered on 01/19/19at 08:51; Start 01/19/19 at 00:00 Sertraline HCl (Zoloft) 200 mg DAILY PO Last administered on 01/19/19at 08:51; Start 01/19/19 at 09:00 Magnesium Sulfate 50 ml @ 25 mls/hr 1X ONCE IV Last administered on 01/19/19at 00:16; Start 01/19/19 at 00:00; Stop 01/19/19 at 01:59; Status DC Active Scripts Active Reported Tylenol (Acetaminophen) 325 Mg Tablet 1-2 Tab PO PRN Q6HRS PRN Flax Oil (Flaxseed Oil) 1,000 Mg Capsule 1,000 Mg PO DAILY Sertraline Hcl 100 Mg Tablet 200 Mg PO DAILY Nortriptyline Hcl 25 Mg Capsule 1 Cap PO QHS Renal Vitamin Tablet (Folic Acid/Vit Bcomp,C) 0.8 Mg Tablet 0.8 Mg PO DAILY Loratadine 10 Mg Tablet 1 Tab PO PRN Q48HR Allergies Allergies: Coded Allergies: aspirin (Verified Allergy, Unknown, 01/18/19) fish derived (Verified Allergy, Unknown, 01/18/19) ibuprofen (Verified Allergy, Unknown, 01/18/19) naproxen (Verified Allergy, Unknown, 01/18/19) niacin (Verified Allergy, Unknown, 01/18/19) nut - unspecified (Verified Allergy, Unknown, 01/18/19) ROS Review of System As per HPI Physical Exam Physical Exam GEN.: No apparent distress. Alert and oriented. HEENT: Head is normocephalic, atraumatic NECK: Supple, no JVD LUNGS: Clear to auscultation without rhonchi or wheezing HEART: RRR, S1, S2 present. Peripheral pulses intact ABDOMEN: Soft, nontender. Positive bowel sounds no organomegaly EXTREMITIES: Without any cyanosis, clubbing, or edema. Pedal pulses intact NEUROLOGIC: Normal speech, normal tone. A&O x 3 SKIN: No ulcerations or rashes VASCULAR: Good capillary refill Vital Signs Vital Signs Date Time Temp Pulse Resp B/P (MAP) Pulse Ox O2 Delivery O2 Flow Rate FiO2 01/19/19 11:00 97.9 76 16 113/64 (80) 96 Room Air 97.9 Assessment & Plan ESRD - On HD TTS at [facility] Incomplete HD yesterday E-Lytes stable , Fluid status stable No emergent indication for HD today Compliant with HD Syncope /Slurred speech Not hypotensive Neurology Consulted Anemia- Hgb Low, chronic Ferritin was 1800 at HD unit, has been receiving LANDON 3 x week CAD - cardiology consulted Pancytopenia - unknown etiology, Heme/Onc consultation Abnormal CXR - left basilar infiltrate - Abx for HCAP Discussed With Patient Labs Labs Laboratory Tests Test 01/18/19 16:15 01/19/19 08:45 White Blood Count 2.3 x10^3/uL (4.0-11.0) 2.9 x10^3/uL (4.0-11.0) Red Blood Count 2.36 x10^6/uL (4.30-5.70) 2.49 x10^6/uL (4.30-5.70) Hemoglobin 7.1 g/dL (13.0-17.5) 7.4 g/dL (13.0-17.5) Hematocrit 21.5 % (39.0-53.0) 22.9 % (39.0-53.0) Mean Corpuscular Volume 91 fL (79-100) 92 fL (79-100) Mean Corpuscular Hemoglobin 30 pg (25-35) 30 pg (25-35) Mean Corpuscular Hemoglobin Concent 33 g/dL (31-37) 32 g/dL (31-37) Red Cell Distribution Width 17.7 % (11.5-14.5) 17.7 % (11.5-14.5) Platelet Count 66 x10^3/uL (140-400) 65 x10^3/uL (140-400) Neutrophils (%) (Auto) 77 % (31-73) 67 % (31-73) Lymphocytes (%) (Auto) 14 % (24-48) 21 % (24-48) Monocytes (%) (Auto) 4 % (0-9) 7 % (0-9) Eosinophils (%) (Auto) 4 % (0-3) 4 % (0-3) Basophils (%) (Auto) 1 % (0-3) 1 % (0-3) Neutrophils # (Auto) 1.8 x10^3uL (1.8-7.7) 2.0 x10^3uL (1.8-7.7) Lymphocytes # (Auto) 0.3 x10^3/uL (1.0-4.8) 0.6 x10^3/uL (1.0-4.8) Monocytes # (Auto) 0.1 x10^3/uL (0.0-1.1) 0.2 x10^3/uL (0.0-1.1) Eosinophils # (Auto) 0.1 x10^3/uL (0.0-0.7) 0.1 x10^3/uL (0.0-0.7) Basophils # (Auto) 0.0 x10^3/uL (0.0-0.2) 0.0 x10^3/uL (0.0-0.2) Segmented Neutrophils % 76 % (35-66) Lymphocytes % 14 % (24-48) Monocytes % 4 % (0-10) Eosinophils % 6 % (0-5) Platelet Estimate Decreased (ADEQUATE) Hypochromasia Slight Anisocytosis Slight Ovalocytes Few Sodium Level 138 mmol/L (136-145) 141 mmol/L (136-145) Potassium Level 4.2 mmol/L (3.5-5.1) 5.3 mmol/L (3.5-5.1) Chloride Level 100 mmol/L (98-107) 103 mmol/L (98-107) Carbon Dioxide Level 27 mmol/L (21-32) 26 mmol/L (21-32) Anion Gap 11 (6-14) 12 (6-14) Blood Urea Nitrogen 41 mg/dL (8-26) 47 mg/dL (8-26) Creatinine 7.1 mg/dL (0.7-1.3) 8.9 mg/dL (0.7-1.3) Estimated GFR (Cockcroft-Gault) 7.6 5.9 BUN/Creatinine Ratio 6 (6-20) Glucose Level 116 mg/dL (70-99) 113 mg/dL (70-99) Calcium Level 8.4 mg/dL (8.5-10.1) 8.3 mg/dL (8.5-10.1) Magnesium Level 1.7 mg/dL (1.8-2.4) Total Bilirubin 0.4 mg/dL (0.2-1.0) Aspartate Amino Transf (AST/SGOT) 17 U/L (15-37) Alanine Aminotransferase (ALT/SGPT) 14 U/L (16-63) Alkaline Phosphatase 55 U/L (46-116) Creatine Kinase 67 U/L (39-308) Creatine Kinase MB (Mass) 0.6 ng/mL (0.0-3.6) Creatine Kinase MB Relative Index 0.9 % (0-4) Troponin I Quantitative 0.022 ng/mL (0.000-0.055) 0.034 ng/mL (0.000-0.055) Total Protein 5.5 g/dL (6.4-8.2) Albumin 2.8 g/dL (3.4-5.0) 2.6 g/dL (3.4-5.0) Albumin/Globulin Ratio 1.0 (1.0-1.7) Thyroid Stimulating Hormone (TSH) 1.512 uIU/mL (0.358-3.74) Phosphorus Level 6.8 mg/dL (2.6-4.7) Triglycerides Level 128 mg/dL (0-150) Cholesterol Level 97 mg/dL (0-200) LDL Cholesterol, Calculated 49 mg/dL (0-100) VLDL Cholesterol, Calculated 26 mg/dL (0-40) Non-HDL Cholesterol Calculated 75 mg/dL (0-129) HDL Cholesterol 22 mg/dL (40-60) Cholesterol/HDL Ratio 4.4 Laboratory Tests Test 01/18/19 16:15 01/19/19 08:45 White Blood Count 2.3 x10^3/uL (4.0-11.0) 2.9 x10^3/uL (4.0-11.0) Red Blood Count 2.36 x10^6/uL (4.30-5.70) 2.49 x10^6/uL (4.30-5.70) Hemoglobin 7.1 g/dL (13.0-17.5) 7.4 g/dL (13.0-17.5) Hematocrit 21.5 % (39.0-53.0) 22.9 % (39.0-53.0) Mean Corpuscular Volume 91 fL (79-100) 92 fL (79-100) Mean Corpuscular Hemoglobin 30 pg (25-35) 30 pg (25-35) Mean Corpuscular Hemoglobin Concent 33 g/dL (31-37) 32 g/dL (31-37) Red Cell Distribution Width 17.7 % (11.5-14.5) 17.7 % (11.5-14.5) Platelet Count 66 x10^3/uL (140-400) 65 x10^3/uL (140-400) Neutrophils (%) (Auto) 77 % (31-73) 67 % (31-73) Lymphocytes (%) (Auto) 14 % (24-48) 21 % (24-48) Monocytes (%) (Auto) 4 % (0-9) 7 % (0-9) Eosinophils (%) (Auto) 4 % (0-3) 4 % (0-3) Basophils (%) (Auto) 1 % (0-3) 1 % (0-3) Neutrophils # (Auto) 1.8 x10^3uL (1.8-7.7) 2.0 x10^3uL (1.8-7.7) Lymphocytes # (Auto) 0.3 x10^3/uL (1.0-4.8) 0.6 x10^3/uL (1.0-4.8) Monocytes # (Auto) 0.1 x10^3/uL (0.0-1.1) 0.2 x10^3/uL (0.0-1.1) Eosinophils # (Auto) 0.1 x10^3/uL (0.0-0.7) 0.1 x10^3/uL (0.0-0.7) Basophils # (Auto) 0.0 x10^3/uL (0.0-0.2) 0.0 x10^3/uL (0.0-0.2) Segmented Neutrophils % 76 % (35-66) Lymphocytes % 14 % (24-48) Monocytes % 4 % (0-10) Eosinophils % 6 % (0-5) Platelet Estimate Decreased (ADEQUATE) Hypochromasia Slight Anisocytosis Slight Ovalocytes Few Sodium Level 138 mmol/L (136-145) 141 mmol/L (136-145) Potassium Level 4.2 mmol/L (3.5-5.1) 5.3 mmol/L (3.5-5.1) Chloride Level 100 mmol/L (98-107) 103 mmol/L (98-107) Carbon Dioxide Level 27 mmol/L (21-32) 26 mmol/L (21-32) Anion Gap 11 (6-14) 12 (6-14) Blood Urea Nitrogen 41 mg/dL (8-26) 47 mg/dL (8-26) Creatinine 7.1 mg/dL (0.7-1.3) 8.9 mg/dL (0.7-1.3) Estimated GFR (Cockcroft-Gault) 7.6 5.9 BUN/Creatinine Ratio 6 (6-20) Glucose Level 116 mg/dL (70-99) 113 mg/dL (70-99) Calcium Level 8.4 mg/dL (8.5-10.1) 8.3 mg/dL (8.5-10.1) Magnesium Level 1.7 mg/dL (1.8-2.4) Total Bilirubin 0.4 mg/dL (0.2-1.0) Aspartate Amino Transf (AST/SGOT) 17 U/L (15-37) Alanine Aminotransferase (ALT/SGPT) 14 U/L (16-63) Alkaline Phosphatase 55 U/L (46-116) Creatine Kinase 67 U/L (39-308) Creatine Kinase MB (Mass) 0.6 ng/mL (0.0-3.6) Creatine Kinase MB Relative Index 0.9 % (0-4) Troponin I Quantitative 0.022 ng/mL (0.000-0.055) 0.034 ng/mL (0.000-0.055) Total Protein 5.5 g/dL (6.4-8.2) Albumin 2.8 g/dL (3.4-5.0) 2.6 g/dL (3.4-5.0) Albumin/Globulin Ratio 1.0 (1.0-1.7) Thyroid Stimulating Hormone (TSH) 1.512 uIU/mL (0.358-3.74) Phosphorus Level 6.8 mg/dL (2.6-4.7) Triglycerides Level 128 mg/dL (0-150) Cholesterol Level 97 mg/dL (0-200) LDL Cholesterol, Calculated 49 mg/dL (0-100) VLDL Cholesterol, Calculated 26 mg/dL (0-40) Non-HDL Cholesterol Calculated 75 mg/dL (0-129) HDL Cholesterol 22 mg/dL (40-60) Cholesterol/HDL Ratio 4.4 Review All relevant outside records, renal labs, imaging studies, telemetry/EKG's were reviewed. MAHENDRA GARCIA MD January 19, 2019 12:57
--- NOTE | 2019-01-19 19:05 | NUR ---
Assessment completed vss poc explained pt denies pain at this time will resume care and continue to monitor pt. Call light in reach.
[2019-01-19] MEDS: NORTRIPTYLINE 25 MG CAPSULE PO SCH (21:08)
[2019-01-20] VITALS (10 sets, daily range): BP systolic 109–132; BP diastolic 58–72
[2019-01-20 04:51] LABS: BASO % 1 % (0-3); EOS # 0.1 x10^3/uL (0.0-0.7); EOS % 4 % (0-3); LYMPH # 0.6 x10^3/uL (1.0-4.8); LYMPH % 20 % (24-48); MEAN CORPUSCULAR HEMOGLOBIN 30 pg (25-35); MEAN CORPUSCULAR HGB CONC 33 g/dL (31-37); MEAN CORPUSCULAR VOLUME 91 fL (79-100); MONO # 0.2 x10^3/uL (0.0-1.1); MONO % 6 % (0-9); NEUT % 69 % (31-73); PLATELET COUNT 63 x10^3/uL (140-400); RED BLOOD COUNT 2.25 x10^6/uL (4.30-5.70); RED CELL DISTRIBUTION WIDTH 17.4 % (11.5-14.5); WHITE BLOOD COUNT 2.8 x10^3/uL (4.0-11.0)
[2019-01-20 04:57] LABS: HEMATOCRIT 20.5 % (39.0-53.0); HEMOGLOBIN 6.8 g/dL (13.0-17.5)
[2019-01-20 05:22] LABS: ALBUMIN 2.4 g/dL (3.4-5.0); CREATININE 10.1 mg/dL (0.7-1.3); GFR 5.1; POTASSIUM 4.6 mmol/L (3.5-5.1)
--- NOTE | 2019-01-20 07:36 | RAD ---
EXAM: Carotid Doppler sonogram. HISTORY: Syncope. TECHNIQUE: Hobbs scale and color Doppler sonographic evaluation of the neck with spectral waveform analysis was performed and static images are submitted for review. FINDINGS: There is mild atherosclerotic plaque within the proximal internal and external carotid arteries. The peak systolic velocity within the right common carotid artery is 79 cm/sec. The peak systolic velocity within the right internal carotid artery is 59 cm/sec and the end diastolic velocity within the right internal carotid artery is 21 cm/sec. The right ICA/CCA ratio is 1.3. The peak systolic velocity within the left common carotid artery is 72 cm/sec. The peak systolic velocity within the left internal carotid artery is 60 cm/sec and the end diastolic velocity within the left internal carotid artery is 18 cm/sec. The left ICA/CCA ratio is 0.8. There is normal antegrade flow within both vertebral arteries. IMPRESSION: No Doppler evidence of hemodynamically significant stenosis within the carotid or vertebral arteries. PQRS Compliance Statement - Stenosis calculations for CT, MR and conventional angiography are based upon measurement of the distal ICA diameter in accordance with the NASCET methodology. Stenosis calculations for carotid ultrasound studies are derived from validated velocity criteria which are known to correlate with the NASCET methodology. Electronically signed by: Shobha Mcguire MD (01/20/2019 7:34 AM) [facility]
[2019-01-20] MEDS: SERTRALINE 50 MG TABLET. PO SCH (08:51)
[2019-01-20] MEDS: FOLIC/VIT B COMP W-C (RENAL) TABLET. PO SCH (08:51)
[2019-01-20] MEDS ORDERED: IV NORMAL SALINE 1000ML BAG 1,000 ML IV PRN ×2 (09:07)
[2019-01-20] MEDS ORDERED: DIALYSIS PATIENT. MC PRN ×2 (09:15)
[2019-01-20] MEDS ORDERED: ALBUMIN HUMAN 25% 200 ML IV PRN (09:15)
[2019-01-20] MEDS ORDERED: 0.9 % SODIUM CHLORIDE 10 ML DISP.SYRIN. IV PRN ×2 (09:15)
--- NOTE | 2019-01-20 11:45 | PDOC ---
PROGRESS NOTES Assessment Problems Medical Problems: (1) Renal failure Status: Acute (2) Syncope Status: Acute * The patient became lightheaded and fainted during dialysis and has a history of fainting and orthostatic hypotension. He does have diabetes and most likely has an autonomic component to his neuropathy. I find no evidence of central nervous system disease such as stroke, seizure, or other intracranial process. * Diabetic neuropathy with autonomic component * Note normal carotid Doppler studies Plan * No need for further neurological studies such as imaging the brain or EEG * Counseled patient to be careful when getting up rapidly from a supine position * Consider midodrine, blood pressure a little high now though * Okay for discharge * Follow-up with neurology as needed. Subjective no complaints, worried that he doesn't have any clothes to go home in Objective Vital Signs Date Time Temp Pulse Resp B/P (MAP) Pulse Ox O2 Delivery O2 Flow Rate FiO2 01/20/19 11:37 Room Air 01/20/19 11:27 97.1 68 20 112/61 97.1 01/20/19 07:45 96 Intake and Output 01/20/19 07:00 Intake Total 720 ml Output Total 250 ml Balance 470 ml Intake Oral 720 ml Output Urine Total 250 ml # Bowel Movements 1 PHYSICAL EXAM Alert. Oriented to time, place and person. PERRL. EOMI. CN: no focal findings. Muscle tone: normal. Muscle strength: 5/5 DTR: 1+ Plantar reflex: flexor Gait: not examined in bed. Sensory exam: Stocking loss. No cerebellar signs elicited. Review of Relevant I have reviewed the following items bhargav (where applicable) has been applied. Labs Laboratory Tests Test 01/18/19 16:15 01/19/19 08:45 01/19/19 13:57 01/20/19 04:00 White Blood Count 2.3 x10^3/uL (4.0-11.0) 2.9 x10^3/uL (4.0-11.0) 2.8 x10^3/uL (4.0-11.0) Red Blood Count 2.36 x10^6/uL (4.30-5.70) 2.49 x10^6/uL (4.30-5.70) 2.25 x10^6/uL (4.30-5.70) Hemoglobin 7.1 g/dL (13.0-17.5) 7.4 g/dL (13.0-17.5) 6.8 g/dL (13.0-17.5) Hematocrit 21.5 % (39.0-53.0) 22.9 % (39.0-53.0) 20.5 % (39.0-53.0) Mean Corpuscular Volume 91 fL (79-100) 92 fL (79-100) 91 fL (79-100) Mean Corpuscular Hemoglobin 30 pg (25-35) 30 pg (25-35) 30 pg (25-35) Mean Corpuscular Hemoglobin Concent 33 g/dL (31-37) 32 g/dL (31-37) 33 g/dL (31-37) Red Cell Distribution Width 17.7 % (11.5-14.5) 17.7 % (11.5-14.5) 17.4 % (11.5-14.5) Platelet Count 66 x10^3/uL (140-400) 65 x10^3/uL (140-400) 63 x10^3/uL (140-400) Neutrophils (%) (Auto) 77 % (31-73) 67 % (31-73) 69 % (31-73) Lymphocytes (%) (Auto) 14 % (24-48) 21 % (24-48) 20 % (24-48) Monocytes (%) (Auto) 4 % (0-9) 7 % (0-9) 6 % (0-9) Eosinophils (%) (Auto) 4 % (0-3) 4 % (0-3) 4 % (0-3) Basophils (%) (Auto) 1 % (0-3) 1 % (0-3) 1 % (0-3) Neutrophils # (Auto) 1.8 x10^3uL (1.8-7.7) 2.0 x10^3uL (1.8-7.7) 2.0 x10^3uL (1.8-7.7) Lymphocytes # (Auto) 0.3 x10^3/uL (1.0-4.8) 0.6 x10^3/uL (1.0-4.8) 0.6 x10^3/uL (1.0-4.8) Monocytes # (Auto) 0.1 x10^3/uL (0.0-1.1) 0.2 x10^3/uL (0.0-1.1) 0.2 x10^3/uL (0.0-1.1) Eosinophils # (Auto) 0.1 x10^3/uL (0.0-0.7) 0.1 x10^3/uL (0.0-0.7) 0.1 x10^3/uL (0.0-0.7) Basophils # (Auto) 0.0 x10^3/uL (0.0-0.2) 0.0 x10^3/uL (0.0-0.2) 0.0 x10^3/uL (0.0-0.2) Segmented Neutrophils % 76 % (35-66) Lymphocytes % 14 % (24-48) Monocytes % 4 % (0-10) Eosinophils % 6 % (0-5) Platelet Estimate Decreased (ADEQUATE) Hypochromasia Slight Anisocytosis Slight Ovalocytes Few Sodium Level 138 mmol/L (136-145) 141 mmol/L (136-145) 137 mmol/L (136-145) Potassium Level 4.2 mmol/L (3.5-5.1) 5.3 mmol/L (3.5-5.1) 4.6 mmol/L (3.5-5.1) Chloride Level 100 mmol/L (98-107) 103 mmol/L (98-107) 101 mmol/L (98-107) Carbon Dioxide Level 27 mmol/L (21-32) 26 mmol/L (21-32) 23 mmol/L (21-32) Anion Gap 11 (6-14) 12 (6-14) 13 (6-14) Blood Urea Nitrogen 41 mg/dL (8-26) 47 mg/dL (8-26) 55 mg/dL (8-26) Creatinine 7.1 mg/dL (0.7-1.3) 8.9 mg/dL (0.7-1.3) 10.1 mg/dL (0.7-1.3) Estimated GFR (Cockcroft-Gault) 7.6 5.9 5.1 BUN/Creatinine Ratio 6 (6-20) Glucose Level 116 mg/dL (70-99) 113 mg/dL (70-99) 99 mg/dL (70-99) Calcium Level 8.4 mg/dL (8.5-10.1) 8.3 mg/dL (8.5-10.1) 8.0 mg/dL (8.5-10.1) Magnesium Level 1.7 mg/dL (1.8-2.4) Total Bilirubin 0.4 mg/dL (0.2-1.0) Aspartate Amino Transf (AST/SGOT) 17 U/L (15-37) Alanine Aminotransferase (ALT/SGPT) 14 U/L (16-63) Alkaline Phosphatase 55 U/L (46-116) Creatine Kinase 67 U/L (39-308) Creatine Kinase MB (Mass) 0.6 ng/mL (0.0-3.6) Creatine Kinase MB Relative Index 0.9 % (0-4) Troponin I Quantitative 0.022 ng/mL (0.000-0.055) 0.034 ng/mL (0.000-0.055) 0.023 ng/mL (0.000-0.055) Total Protein 5.5 g/dL (6.4-8.2) Albumin 2.8 g/dL (3.4-5.0) 2.6 g/dL (3.4-5.0) 2.4 g/dL (3.4-5.0) Albumin/Globulin Ratio 1.0 (1.0-1.7) Thyroid Stimulating Hormone (TSH) 1.512 uIU/mL (0.358-3.74) Phosphorus Level 6.8 mg/dL (2.6-4.7) 7.0 mg/dL (2.6-4.7) Triglycerides Level 128 mg/dL (0-150) Cholesterol Level 97 mg/dL (0-200) LDL Cholesterol, Calculated 49 mg/dL (0-100) VLDL Cholesterol, Calculated 26 mg/dL (0-40) Non-HDL Cholesterol Calculated 75 mg/dL (0-129) HDL Cholesterol 22 mg/dL (40-60) Cholesterol/HDL Ratio 4.4 Test 01/20/19 07:46 Glucose (Fingerstick) 95 mg/dL (70-99) Laboratory Tests Test 01/19/19 13:57 01/20/19 04:00 01/20/19 07:46 Troponin I Quantitative 0.023 ng/mL (0.000-0.055) White Blood Count 2.8 x10^3/uL (4.0-11.0) Red Blood Count 2.25 x10^6/uL (4.30-5.70) Hemoglobin 6.8 g/dL (13.0-17.5) Hematocrit 20.5 % (39.0-53.0) Mean Corpuscular Volume 91 fL (79-100) Mean Corpuscular Hemoglobin 30 pg (25-35) Mean Corpuscular Hemoglobin Concent 33 g/dL (31-37) Red Cell Distribution Width 17.4 % (11.5-14.5) Platelet Count 63 x10^3/uL (140-400) Neutrophils (%) (Auto) 69 % (31-73) Lymphocytes (%) (Auto) 20 % (24-48) Monocytes (%) (Auto) 6 % (0-9) Eosinophils (%) (Auto) 4 % (0-3) Basophils (%) (Auto) 1 % (0-3) Neutrophils # (Auto) 2.0 x10^3uL (1.8-7.7) Lymphocytes # (Auto) 0.6 x10^3/uL (1.0-4.8) Monocytes # (Auto) 0.2 x10^3/uL (0.0-1.1) Eosinophils # (Auto) 0.1 x10^3/uL (0.0-0.7) Basophils # (Auto) 0.0 x10^3/uL (0.0-0.2) Sodium Level 137 mmol/L (136-145) Potassium Level 4.6 mmol/L (3.5-5.1) Chloride Level 101 mmol/L (98-107) Carbon Dioxide Level 23 mmol/L (21-32) Anion Gap 13 (6-14) Blood Urea Nitrogen 55 mg/dL (8-26) Creatinine 10.1 mg/dL (0.7-1.3) Estimated GFR (Cockcroft-Gault) 5.1 Glucose Level 99 mg/dL (70-99) Calcium Level 8.0 mg/dL (8.5-10.1) Phosphorus Level 7.0 mg/dL (2.6-4.7) Albumin 2.4 g/dL (3.4-5.0) Glucose (Fingerstick) 95 mg/dL (70-99) Medications Current Medications Sodium Chloride 250 ml @ 250 mls/hr 1X ONCE IV Last administered on 01/18/19at 16:45; Start 01/18/19 at 16:45; Stop 01/18/19 at 17:44; Status DC Acetaminophen (Tylenol) 650 mg PRN Q6HRS PRN PO PAIN; Start 01/19/19 at 00:00 Vitamin B Complex/ Vitamin C (Surekha-Vic) 1 tab DAILY PO Last administered on 01/20/19at 08:51; Start 01/19/19 at 09:00 Nortriptyline HCl (Pamelor) 25 mg QHS PO Last administered on 01/19/19at 21:08; Start 01/19/19 at 21:00 Non-Formulary Medication (Flaxseed Oil (Flax Oil)) 1,000 mg DAILY PO ; Start 01/19/19 at 09:00; Status UNV Cetirizine HCl (ZyrTEC) 10 mg PRN Q48HR PRN PO ALLERGIES Last administered on 01/19/19at 08:51; Start 01/19/19 at 00:00 Sertraline HCl (Zoloft) 200 mg DAILY PO Last administered on 01/20/19at 08:51; Start 01/19/19 at 09:00 Magnesium Sulfate 50 ml @ 25 mls/hr 1X ONCE IV Last administered on 01/19/19at 00:16; Start 01/19/19 at 00:00; Stop 01/19/19 at 01:59; Status DC Sodium Chloride 1,000 ml @ 1,000 mls/hr Q1H PRN IV hypotension; Start 01/20/19 at 09:07; Stop 01/20/19 at 15:06 Albumin Human 200 ml @ 200 mls/hr 1X PRN PRN IV Hypotension; Start 01/20/19 at 09:15; Stop 01/20/19 at 15:14 Sodium Chloride (Normal Saline Flush) 10 ml 1X PRN PRN IV AP catheter pack; Start 01/20/19 at 09:15; Stop 01/21/19 at 09:14 Sodium Chloride (Normal Saline Flush) 10 ml 1X PRN PRN IV [employer] catheter pack; Start 01/20/19 at 09:15; Stop 01/21/19 at 09:14 Sodium Chloride 1,000 ml @ 400 mls/hr Q2H30M PRN IV PATENCY; Start 01/20/19 at 09:07; Stop 01/20/19 at 21:06 Info (PHARMACY MONITORING -- do not chart) 1 each PRN DAILY PRN MC SEE COMMENTS; Start 01/20/19 at 09:15; Status UNV Info (PHARMACY MONITORING -- do not chart) 1 each PRN DAILY PRN MC SEE COMMENTS; Start 01/20/19 at 09:15 Active Scripts Active Reported Tylenol (Acetaminophen) 325 Mg Tablet 1-2 Tab PO PRN Q6HRS PRN Flax Oil (Flaxseed Oil) 1,000 Mg Capsule 1,000 Mg PO DAILY Sertraline Hcl 100 Mg Tablet 200 Mg PO DAILY Nortriptyline Hcl 25 Mg Capsule 1 Cap PO QHS Renal Vitamin Tablet (Folic Acid/Vit Bcomp,C) 0.8 Mg Tablet 0.8 Mg PO DAILY Loratadine 10 Mg Tablet 1 Tab PO PRN Q48HR Vitals/I & O Vital Sign - Last 24 Hours 01/19/19 01/19/19 01/19/19 01/19/19 15:00 19:00 19:05 23:01 Temp 98.1 98.1 98.5 98.1 98.1 98.5 Pulse 73 72 79 Resp 16 18 20 B/P (MAP) 122/64 (83) 107/58 (74) 127/61 (83) Pulse Ox 97 98 95 O2 Delivery Room Air Room Air Room Air Room Air 01/20/19 01/20/19 01/20/19 01/20/19 02:46 07:45 08:00 11:04 Temp 97.5 98.1 97.9 97.5 98.1 97.9 Pulse 75 76 70 Resp 17 14 20 B/P (MAP) 113/59 (77) 132/69 (90) 114/65 Pulse Ox 98 96 O2 Delivery Room Air Room Air Room Air 01/20/19 01/20/19 11:27 11:37 Temp 97.1 97.1 Pulse 68 Resp 20 B/P (MAP) 112/61 O2 Delivery Room Air Intake and Output 5/12/0501/19/19 01/20/19 15:00 23:00 07:00 Intake Total 300 ml 420 ml Output Total 100 ml 100 ml 50 ml Balance -100 ml 200 ml 370 ml Images Carotid Doppler sonogram. HISTORY: Syncope. TECHNIQUE: Hobbs scale and color Doppler sonographic evaluation of the neck with spectral waveform analysis was performed and static images are submitted for review. FINDINGS: There is mild atherosclerotic plaque within the proximal internal and external carotid arteries. The peak systolic velocity within the right common carotid artery is 79 cm/sec. The peak systolic velocity within the right internal carotid artery is 59 cm/sec and the end diastolic velocity within the right internal carotid artery is 21 cm/sec. The right ICA/CCA ratio is 1.3. The peak systolic velocity within the left common carotid artery is 72 cm/sec. The peak systolic velocity within the left internal carotid artery is 60 cm/sec and the end diastolic velocity within the left internal carotid artery is 18 cm/sec. The left ICA/CCA ratio is 0.8. There is normal antegrade flow within both vertebral arteries. IMPRESSION: No Doppler evidence of hemodynamically significant stenosis within the carotid or vertebral arteries. COLLINS BOYD MD January 20, 2019 11:45
--- NOTE | 2019-01-20 12:01 | PDOC ---
Renal-Progress Notes Subjective Notes Notes NO COMPLAINTS, SLEEPY History of Present Illness Hx of present illness STABLE Vitals Vitals Vital Signs Date Time Temp Pulse Resp B/P (MAP) Pulse Ox O2 Delivery O2 Flow Rate FiO2 01/20/19 11:37 Room Air 01/20/19 11:27 97.1 68 20 112/61 97.1 01/20/19 07:45 96 Weight Weight [ ] I.O. Intake and Output Intake and Output 01/20/19 07:00 Intake Total 720 ml Output Total 250 ml Balance 470 ml Intake Oral 720 ml Output Urine Total 250 ml # Bowel Movements 1 Labs Labs Laboratory Tests Test 01/19/19 13:57 01/20/19 04:00 01/20/19 07:46 Troponin I Quantitative 0.023 ng/mL (0.000-0.055) White Blood Count 2.8 x10^3/uL (4.0-11.0) Red Blood Count 2.25 x10^6/uL (4.30-5.70) Hemoglobin 6.8 g/dL (13.0-17.5) Hematocrit 20.5 % (39.0-53.0) Mean Corpuscular Volume 91 fL (79-100) Mean Corpuscular Hemoglobin 30 pg (25-35) Mean Corpuscular Hemoglobin Concent 33 g/dL (31-37) Red Cell Distribution Width 17.4 % (11.5-14.5) Platelet Count 63 x10^3/uL (140-400) Neutrophils (%) (Auto) 69 % (31-73) Lymphocytes (%) (Auto) 20 % (24-48) Monocytes (%) (Auto) 6 % (0-9) Eosinophils (%) (Auto) 4 % (0-3) Basophils (%) (Auto) 1 % (0-3) Neutrophils # (Auto) 2.0 x10^3uL (1.8-7.7) Lymphocytes # (Auto) 0.6 x10^3/uL (1.0-4.8) Monocytes # (Auto) 0.2 x10^3/uL (0.0-1.1) Eosinophils # (Auto) 0.1 x10^3/uL (0.0-0.7) Basophils # (Auto) 0.0 x10^3/uL (0.0-0.2) Sodium Level 137 mmol/L (136-145) Potassium Level 4.6 mmol/L (3.5-5.1) Chloride Level 101 mmol/L (98-107) Carbon Dioxide Level 23 mmol/L (21-32) Anion Gap 13 (6-14) Blood Urea Nitrogen 55 mg/dL (8-26) Creatinine 10.1 mg/dL (0.7-1.3) Estimated GFR (Cockcroft-Gault) 5.1 Glucose Level 99 mg/dL (70-99) Calcium Level 8.0 mg/dL (8.5-10.1) Phosphorus Level 7.0 mg/dL (2.6-4.7) Albumin 2.4 g/dL (3.4-5.0) Glucose (Fingerstick) 95 mg/dL (70-99) Review of Systems Constitutional: yes: alert, oriented Ears/Nose/Throat: Yes: no symptom reported Eyes: Yes: no symptom reported Pulmonary: Yes dyspnea Cardiovascular: Yes no symptom reported Gastrointestional: Yes: no symptom reported Genitourinary: Yes: no symptom reported Musculoskeletal: Yes: no symptom reported Skin: Yes no symptom reported Psychiatric/Neurological: Yes: no symptom reported Endocrine: Yes: no symptom reported Physical Exam General Appearance: no apparent distress Skin: warm Respiratory: decreased breath sounds Heart: S1S2 Abdomen: soft, bowel sounds present Genitourinary: bladder flat Extremities: pulses present Musculoskeletal: Osteoarthritis Assessment Assessment IMP ESRD ANEMIA SYNCOPE PANCYTOPENIA PLAN HEME ONC EVAL PRBC TODAY NEUROLOGY EVALUATION HD TODAY UF TO DW WILL FOLLOW ODALIS NEAL MD January 20, 2019 12:01
--- NOTE | 2019-01-20 13:38 | PDOC ---
PROGRESS NOTES Subjective Subjective Patient seen and examined The patient feels better and is more comfortable today. Objective Objective Vital Signs Date Time Temp Pulse Resp B/P (MAP) Pulse Ox O2 Delivery O2 Flow Rate FiO2 01/20/19 12:37 97.4 67 20 114/68 97.4 01/20/19 11:37 Room Air 01/20/19 07:45 96 Intake and Output 01/20/19 07:00 Intake Total 720 ml Output Total 250 ml Balance 470 ml Intake Oral 720 ml Output Urine Total 250 ml # Bowel Movements 1 Physical Exam Abdomen: Normal bowel sounds Heart: Regular rate General: No acute distress Lungs: Clear to auscultation Assessment Assessment Problems Medical Problems: (1) Renal failure Status: Acute (2) Syncope Status: Acute 1. Syncope: Rhythm stable overnight. Has been evaluated by neurology. Blood pressure stable. Possible vasovagal. We'll continue present treatments. We'll arrange outpatient monitoring. 2. ESRD. HD today. 3. DM2: As per the primary service. 4. Hemoglobin of 6.8 this morning. Being transfused. Unclear what his meds are but no insulin. 5. Pancytopenia: Comment Review of Relevant I have reviewed the following items bhargav (where applicable) has been applied. Labs Laboratory Tests Test 01/18/19 16:15 01/19/19 08:45 01/19/19 13:57 01/20/19 04:00 White Blood Count 2.3 x10^3/uL (4.0-11.0) 2.9 x10^3/uL (4.0-11.0) 2.8 x10^3/uL (4.0-11.0) Red Blood Count 2.36 x10^6/uL (4.30-5.70) 2.49 x10^6/uL (4.30-5.70) 2.25 x10^6/uL (4.30-5.70) Hemoglobin 7.1 g/dL (13.0-17.5) 7.4 g/dL (13.0-17.5) 6.8 g/dL (13.0-17.5) Hematocrit 21.5 % (39.0-53.0) 22.9 % (39.0-53.0) 20.5 % (39.0-53.0) Mean Corpuscular Volume 91 fL (79-100) 92 fL (79-100) 91 fL (79-100) Mean Corpuscular Hemoglobin 30 pg (25-35) 30 pg (25-35) 30 pg (25-35) Mean Corpuscular Hemoglobin Concent 33 g/dL (31-37) 32 g/dL (31-37) 33 g/dL (31-37) Red Cell Distribution Width 17.7 % (11.5-14.5) 17.7 % (11.5-14.5) 17.4 % (11.5-14.5) Platelet Count 66 x10^3/uL (140-400) 65 x10^3/uL (140-400) 63 x10^3/uL (140-400) Neutrophils (%) (Auto) 77 % (31-73) 67 % (31-73) 69 % (31-73) Lymphocytes (%) (Auto) 14 % (24-48) 21 % (24-48) 20 % (24-48) Monocytes (%) (Auto) 4 % (0-9) 7 % (0-9) 6 % (0-9) Eosinophils (%) (Auto) 4 % (0-3) 4 % (0-3) 4 % (0-3) Basophils (%) (Auto) 1 % (0-3) 1 % (0-3) 1 % (0-3) Neutrophils # (Auto) 1.8 x10^3uL (1.8-7.7) 2.0 x10^3uL (1.8-7.7) 2.0 x10^3uL (1.8-7.7) Lymphocytes # (Auto) 0.3 x10^3/uL (1.0-4.8) 0.6 x10^3/uL (1.0-4.8) 0.6 x10^3/uL (1.0-4.8) Monocytes # (Auto) 0.1 x10^3/uL (0.0-1.1) 0.2 x10^3/uL (0.0-1.1) 0.2 x10^3/uL (0.0-1.1) Eosinophils # (Auto) 0.1 x10^3/uL (0.0-0.7) 0.1 x10^3/uL (0.0-0.7) 0.1 x10^3/uL (0.0-0.7) Basophils # (Auto) 0.0 x10^3/uL (0.0-0.2) 0.0 x10^3/uL (0.0-0.2) 0.0 x10^3/uL (0.0-0.2) Segmented Neutrophils % 76 % (35-66) Lymphocytes % 14 % (24-48) Monocytes % 4 % (0-10) Eosinophils % 6 % (0-5) Platelet Estimate Decreased (ADEQUATE) Hypochromasia Slight Anisocytosis Slight Ovalocytes Few Sodium Level 138 mmol/L (136-145) 141 mmol/L (136-145) 137 mmol/L (136-145) Potassium Level 4.2 mmol/L (3.5-5.1) 5.3 mmol/L (3.5-5.1) 4.6 mmol/L (3.5-5.1) Chloride Level 100 mmol/L (98-107) 103 mmol/L (98-107) 101 mmol/L (98-107) Carbon Dioxide Level 27 mmol/L (21-32) 26 mmol/L (21-32) 23 mmol/L (21-32) Anion Gap 11 (6-14) 12 (6-14) 13 (6-14) Blood Urea Nitrogen 41 mg/dL (8-26) 47 mg/dL (8-26) 55 mg/dL (8-26) Creatinine 7.1 mg/dL (0.7-1.3) 8.9 mg/dL (0.7-1.3) 10.1 mg/dL (0.7-1.3) Estimated GFR (Cockcroft-Gault) 7.6 5.9 5.1 BUN/Creatinine Ratio 6 (6-20) Glucose Level 116 mg/dL (70-99) 113 mg/dL (70-99) 99 mg/dL (70-99) Calcium Level 8.4 mg/dL (8.5-10.1) 8.3 mg/dL (8.5-10.1) 8.0 mg/dL (8.5-10.1) Magnesium Level 1.7 mg/dL (1.8-2.4) Total Bilirubin 0.4 mg/dL (0.2-1.0) Aspartate Amino Transf (AST/SGOT) 17 U/L (15-37) Alanine Aminotransferase (ALT/SGPT) 14 U/L (16-63) Alkaline Phosphatase 55 U/L (46-116) Creatine Kinase 67 U/L (39-308) Creatine Kinase MB (Mass) 0.6 ng/mL (0.0-3.6) Creatine Kinase MB Relative Index 0.9 % (0-4) Troponin I Quantitative 0.022 ng/mL (0.000-0.055) 0.034 ng/mL (0.000-0.055) 0.023 ng/mL (0.000-0.055) Total Protein 5.5 g/dL (6.4-8.2) Albumin 2.8 g/dL (3.4-5.0) 2.6 g/dL (3.4-5.0) 2.4 g/dL (3.4-5.0) Albumin/Globulin Ratio 1.0 (1.0-1.7) Thyroid Stimulating Hormone (TSH) 1.512 uIU/mL (0.358-3.74) Phosphorus Level 6.8 mg/dL (2.6-4.7) 7.0 mg/dL (2.6-4.7) Triglycerides Level 128 mg/dL (0-150) Cholesterol Level 97 mg/dL (0-200) LDL Cholesterol, Calculated 49 mg/dL (0-100) VLDL Cholesterol, Calculated 26 mg/dL (0-40) Non-HDL Cholesterol Calculated 75 mg/dL (0-129) HDL Cholesterol 22 mg/dL (40-60) Cholesterol/HDL Ratio 4.4 Test 01/20/19 07:46 Glucose (Fingerstick) 95 mg/dL (70-99) Laboratory Tests Test 01/19/19 13:57 01/20/19 04:00 01/20/19 07:46 Troponin I Quantitative 0.023 ng/mL (0.000-0.055) White Blood Count 2.8 x10^3/uL (4.0-11.0) Red Blood Count 2.25 x10^6/uL (4.30-5.70) Hemoglobin 6.8 g/dL (13.0-17.5) Hematocrit 20.5 % (39.0-53.0) Mean Corpuscular Volume 91 fL (79-100) Mean Corpuscular Hemoglobin 30 pg (25-35) Mean Corpuscular Hemoglobin Concent 33 g/dL (31-37) Red Cell Distribution Width 17.4 % (11.5-14.5) Platelet Count 63 x10^3/uL (140-400) Neutrophils (%) (Auto) 69 % (31-73) Lymphocytes (%) (Auto) 20 % (24-48) Monocytes (%) (Auto) 6 % (0-9) Eosinophils (%) (Auto) 4 % (0-3) Basophils (%) (Auto) 1 % (0-3) Neutrophils # (Auto) 2.0 x10^3uL (1.8-7.7) Lymphocytes # (Auto) 0.6 x10^3/uL (1.0-4.8) Monocytes # (Auto) 0.2 x10^3/uL (0.0-1.1) Eosinophils # (Auto) 0.1 x10^3/uL (0.0-0.7) Basophils # (Auto) 0.0 x10^3/uL (0.0-0.2) Sodium Level 137 mmol/L (136-145) Potassium Level 4.6 mmol/L (3.5-5.1) Chloride Level 101 mmol/L (98-107) Carbon Dioxide Level 23 mmol/L (21-32) Anion Gap 13 (6-14) Blood Urea Nitrogen 55 mg/dL (8-26) Creatinine 10.1 mg/dL (0.7-1.3) Estimated GFR (Cockcroft-Gault) 5.1 Glucose Level 99 mg/dL (70-99) Calcium Level 8.0 mg/dL (8.5-10.1) Phosphorus Level 7.0 mg/dL (2.6-4.7) Albumin 2.4 g/dL (3.4-5.0) Glucose (Fingerstick) 95 mg/dL (70-99) Medications Current Medications Sodium Chloride 250 ml @ 250 mls/hr 1X ONCE IV Last administered on 01/18/19at 16:45; Start 01/18/19 at 16:45; Stop 01/18/19 at 17:44; Status DC Acetaminophen (Tylenol) 650 mg PRN Q6HRS PRN PO PAIN; Start 01/19/19 at 00:00 Vitamin B Complex/ Vitamin C (Surekha-Vic) 1 tab DAILY PO Last administered on 01/20/19at 08:51; Start 01/19/19 at 09:00 Nortriptyline HCl (Pamelor) 25 mg QHS PO Last administered on 01/19/19at 21:08; Start 01/19/19 at 21:00 Non-Formulary Medication (Flaxseed Oil (Flax Oil)) 1,000 mg DAILY PO ; Start 01/19/19 at 09:00; Status UNV Cetirizine HCl (ZyrTEC) 10 mg PRN Q48HR PRN PO ALLERGIES Last administered on 01/19/19at 08:51; Start 01/19/19 at 00:00 Sertraline HCl (Zoloft) 200 mg DAILY PO Last administered on 01/20/19at 08:51; Start 01/19/19 at 09:00 Magnesium Sulfate 50 ml @ 25 mls/hr 1X ONCE IV Last administered on 01/19/19at 00:16; Start 01/19/19 at 00:00; Stop 01/19/19 at 01:59; Status DC Sodium Chloride 1,000 ml @ 1,000 mls/hr Q1H PRN IV hypotension; Start 01/20/19 at 09:07; Stop 01/20/19 at 15:06 Albumin Human 200 ml @ 200 mls/hr 1X PRN PRN IV Hypotension; Start 01/20/19 at 09:15; Stop 01/20/19 at 15:14 Sodium Chloride (Normal Saline Flush) 10 ml 1X PRN PRN IV AP catheter pack; Start 01/20/19 at 09:15; Stop 01/21/19 at 09:14 Sodium Chloride (Normal Saline Flush) 10 ml 1X PRN PRN IV R[employer] catheter pack; Start 01/20/19 at 09:15; Stop 01/21/19 at 09:14 Sodium Chloride 1,000 ml @ 400 mls/hr Q2H30M PRN IV PATENCY; Start 01/20/19 at 09:07; Stop 01/20/19 at 21:06 Info (PHARMACY MONITORING -- do not chart) 1 each PRN DAILY PRN MC SEE COMMENTS; Start 01/20/19 at 09:15; Status UNV Info (PHARMACY MONITORING -- do not chart) 1 each PRN DAILY PRN MC SEE COMMENTS; Start 01/20/19 at 09:15 Active Scripts Active Reported Tylenol (Acetaminophen) 325 Mg Tablet 1-2 Tab PO PRN Q6HRS PRN Flax Oil (Flaxseed Oil) 1,000 Mg Capsule 1,000 Mg PO DAILY Sertraline Hcl 100 Mg Tablet 200 Mg PO DAILY Nortriptyline Hcl 25 Mg Capsule 1 Cap PO QHS Renal Vitamin Tablet (Folic Acid/Vit Bcomp,C) 0.8 Mg Tablet 0.8 Mg PO DAILY Loratadine 10 Mg Tablet 1 Tab PO PRN Q48HR Vitals/I & O Vital Sign - Last 24 Hours 01/19/19 01/19/19 01/19/19 01/19/19 15:00 19:00 19:05 23:01 Temp 98.1 98.1 98.5 98.1 98.1 98.5 Pulse 73 72 79 Resp 16 18 20 B/P (MAP) 122/64 (83) 107/58 (74) 127/61 (83) Pulse Ox 97 98 95 O2 Delivery Room Air Room Air Room Air Room Air 01/20/19 01/20/19 01/20/19 01/20/19 02:46 07:45 08:00 11:04 Temp 97.5 98.1 97.9 97.5 98.1 97.9 Pulse 75 76 70 Resp 17 14 20 B/P (MAP) 113/59 (77) 132/69 (90) 114/65 Pulse Ox 98 96 O2 Delivery Room Air Room Air Room Air 01/20/19 01/20/19 01/20/19 01/20/19 11:27 11:37 11:59 12:15 Temp 97.1 97.1 97.3 97.1 97.1 97.3 Pulse 68 69 67 Resp 20 18 20 B/P (MAP) 112/61 109/58 116/64 O2 Delivery Room Air 01/20/19 12:37 Temp 97.4 97.4 Pulse 67 Resp 20 B/P (MAP) 114/68 Intake and Output 01/19/19 01/19/19 01/20/19 15:00 23:00 07:00 Intake Total 300 ml 420 ml Output Total 100 ml 100 ml 50 ml Balance -100 ml 200 ml 370 ml MILKA SMYTH MD January 20, 2019 13:38
--- NOTE | 2019-01-20 14:51 | PDOC ---
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 would be appropriate for Heme/Onc consultation, will place order. He is amenable to a bone marrow Bx on Tuesday if necessary ESRD on HD - will continue, next session Tuesday Abnormal CXR - left basilar infiltrate - treat for HCAP History of Present Illness History of Present Illness 73-year-old male [place] w/ PMHx [facility]) who presents to the emergency department for evaluation. He states he was getting hemodialysis, when he apparently passed out. He states he did not get a full dialysis session, approximately half session. He states he feels generally weak at this time. He denies any pain, including any chest pain or shortness of breath, dizziness or lightheadedness. He does appear somewhat pale. There are no alleviating or exacerbating factors to his symptoms otherwise. He does not have a history of coronary artery disease, however he is somewhat of a limited historian. There are no old records available for the patient at this facility. 01/19: Negative carotid dopplers, very mildly elevated RVSP on echo, otherwise WNL. Seen by neurology and cardiology in consultation, unlikely to be neurologically or cardiac mediated syncope. Had Hb 6.8 this morning, 2u PRBC transfused in dialysis. BP 60/40 after session, given 500cc saline bolus. Seen after dialysis. He is feeling better now, eating. Plan: Remain inpatient to adjust his blood pressure adrian-dialysis, will likely remain her until Tuesday Consult heme/onc for possible MDS with his pancytopenia Vitals Vitals Vital Signs Date Time Temp Pulse Resp B/P (MAP) Pulse Ox O2 Delivery O2 Flow Rate FiO2 01/20/19 12:37 97.4 67 20 114/68 97.4 01/20/19 11:37 Room Air 01/20/19 07:45 96 Physical Exam General: Alert, Cooperative, No acute distress Heart: Regular rate Lungs: Clear Abdomen: Normal bowel sounds Extremities: No clubbing, No cyanosis Skin: No rashes, No breakdown Labs LABS Laboratory Tests Test 01/20/19 04:00 01/20/19 07:46 White Blood Count 2.8 x10^3/uL (4.0-11.0) Red Blood Count 2.25 x10^6/uL (4.30-5.70) Hemoglobin 6.8 g/dL (13.0-17.5) Hematocrit 20.5 % (39.0-53.0) Mean Corpuscular Volume 91 fL (79-100) Mean Corpuscular Hemoglobin 30 pg (25-35) Mean Corpuscular Hemoglobin Concent 33 g/dL (31-37) Red Cell Distribution Width 17.4 % (11.5-14.5) Platelet Count 63 x10^3/uL (140-400) Neutrophils (%) (Auto) 69 % (31-73) Lymphocytes (%) (Auto) 20 % (24-48) Monocytes (%) (Auto) 6 % (0-9) Eosinophils (%) (Auto) 4 % (0-3) Basophils (%) (Auto) 1 % (0-3) Neutrophils # (Auto) 2.0 x10^3uL (1.8-7.7) Lymphocytes # (Auto) 0.6 x10^3/uL (1.0-4.8) Monocytes # (Auto) 0.2 x10^3/uL (0.0-1.1) Eosinophils # (Auto) 0.1 x10^3/uL (0.0-0.7) Basophils # (Auto) 0.0 x10^3/uL (0.0-0.2) Sodium Level 137 mmol/L (136-145) Potassium Level 4.6 mmol/L (3.5-5.1) Chloride Level 101 mmol/L (98-107) Carbon Dioxide Level 23 mmol/L (21-32) Anion Gap 13 (6-14) Blood Urea Nitrogen 55 mg/dL (8-26) Creatinine 10.1 mg/dL (0.7-1.3) Estimated GFR (Cockcroft-Gault) 5.1 Glucose Level 99 mg/dL (70-99) Calcium Level 8.0 mg/dL (8.5-10.1) Phosphorus Level 7.0 mg/dL (2.6-4.7) Albumin 2.4 g/dL (3.4-5.0) Glucose (Fingerstick) 95 mg/dL (70-99) Assessment and Plan Assessmemt and Plan Problems Medical Problems: (1) Renal failure Status: Acute (2) Syncope Status: Acute Comment Review of Relevant I have reviewed the following items bhargav (where applicable) has been applied. Labs Laboratory Tests Test 01/18/19 16:15 01/19/19 08:45 01/19/19 13:57 01/20/19 04:00 White Blood Count 2.3 x10^3/uL (4.0-11.0) 2.9 x10^3/uL (4.0-11.0) 2.8 x10^3/uL (4.0-11.0) Red Blood Count 2.36 x10^6/uL (4.30-5.70) 2.49 x10^6/uL (4.30-5.70) 2.25 x10^6/uL (4.30-5.70) Hemoglobin 7.1 g/dL (13.0-17.5) 7.4 g/dL (13.0-17.5) 6.8 g/dL (13.0-17.5) Hematocrit 21.5 % (39.0-53.0) 22.9 % (39.0-53.0) 20.5 % (39.0-53.0) Mean Corpuscular Volume 91 fL (79-100) 92 fL (79-100) 91 fL (79-100) Mean Corpuscular Hemoglobin 30 pg (25-35) 30 pg (25-35) 30 pg (25-35) Mean Corpuscular Hemoglobin Concent 33 g/dL (31-37) 32 g/dL (31-37) 33 g/dL (31-37) Red Cell Distribution Width 17.7 % (11.5-14.5) 17.7 % (11.5-14.5) 17.4 % (11.5-14.5) Platelet Count 66 x10^3/uL (140-400) 65 x10^3/uL (140-400) 63 x10^3/uL (140-400) Neutrophils (%) (Auto) 77 % (31-73) 67 % (31-73) 69 % (31-73) Lymphocytes (%) (Auto) 14 % (24-48) 21 % (24-48) 20 % (24-48) Monocytes (%) (Auto) 4 % (0-9) 7 % (0-9) 6 % (0-9) Eosinophils (%) (Auto) 4 % (0-3) 4 % (0-3) 4 % (0-3) Basophils (%) (Auto) 1 % (0-3) 1 % (0-3) 1 % (0-3) Neutrophils # (Auto) 1.8 x10^3uL (1.8-7.7) 2.0 x10^3uL (1.8-7.7) 2.0 x10^3uL (1.8-7.7) Lymphocytes # (Auto) 0.3 x10^3/uL (1.0-4.8) 0.6 x10^3/uL (1.0-4.8) 0.6 x10^3/uL (1.0-4.8) Monocytes # (Auto) 0.1 x10^3/uL (0.0-1.1) 0.2 x10^3/uL (0.0-1.1) 0.2 x10^3/uL (0.0-1.1) Eosinophils # (Auto) 0.1 x10^3/uL (0.0-0.7) 0.1 x10^3/uL (0.0-0.7) 0.1 x10^3/uL (0.0-0.7) Basophils # (Auto) 0.0 x10^3/uL (0.0-0.2) 0.0 x10^3/uL (0.0-0.2) 0.0 x10^3/uL (0.0-0.2) Segmented Neutrophils % 76 % (35-66) Lymphocytes % 14 % (24-48) Monocytes % 4 % (0-10) Eosinophils % 6 % (0-5) Platelet Estimate Decreased (ADEQUATE) Hypochromasia Slight Anisocytosis Slight Ovalocytes Few Sodium Level 138 mmol/L (136-145) 141 mmol/L (136-145) 137 mmol/L (136-145) Potassium Level 4.2 mmol/L (3.5-5.1) 5.3 mmol/L (3.5-5.1) 4.6 mmol/L (3.5-5.1) Chloride Level 100 mmol/L (98-107) 103 mmol/L (98-107) 101 mmol/L (98-107) Carbon Dioxide Level 27 mmol/L (21-32) 26 mmol/L (21-32) 23 mmol/L (21-32) Anion Gap 11 (6-14) 12 (6-14) 13 (6-14) Blood Urea Nitrogen 41 mg/dL (8-26) 47 mg/dL (8-26) 55 mg/dL (8-26) Creatinine 7.1 mg/dL (0.7-1.3) 8.9 mg/dL (0.7-1.3) 10.1 mg/dL (0.7-1.3) Estimated GFR (Cockcroft-Gault) 7.6 5.9 5.1 BUN/Creatinine Ratio 6 (6-20) Glucose Level 116 mg/dL (70-99) 113 mg/dL (70-99) 99 mg/dL (70-99) Calcium Level 8.4 mg/dL (8.5-10.1) 8.3 mg/dL (8.5-10.1) 8.0 mg/dL (8.5-10.1) Magnesium Level 1.7 mg/dL (1.8-2.4) Total Bilirubin 0.4 mg/dL (0.2-1.0) Aspartate Amino Transf (AST/SGOT) 17 U/L (15-37) Alanine Aminotransferase (ALT/SGPT) 14 U/L (16-63) Alkaline Phosphatase 55 U/L (46-116) Creatine Kinase 67 U/L (39-308) Creatine Kinase MB (Mass) 0.6 ng/mL (0.0-3.6) Creatine Kinase MB Relative Index 0.9 % (0-4) Troponin I Quantitative 0.022 ng/mL (0.000-0.055) 0.034 ng/mL (0.000-0.055) 0.023 ng/mL (0.000-0.055) Total Protein 5.5 g/dL (6.4-8.2) Albumin 2.8 g/dL (3.4-5.0) 2.6 g/dL (3.4-5.0) 2.4 g/dL (3.4-5.0) Albumin/Globulin Ratio 1.0 (1.0-1.7) Thyroid Stimulating Hormone (TSH) 1.512 uIU/mL (0.358-3.74) Phosphorus Level 6.8 mg/dL (2.6-4.7) 7.0 mg/dL (2.6-4.7) Triglycerides Level 128 mg/dL (0-150) Cholesterol Level 97 mg/dL (0-200) LDL Cholesterol, Calculated 49 mg/dL (0-100) VLDL Cholesterol, Calculated 26 mg/dL (0-40) Non-HDL Cholesterol Calculated 75 mg/dL (0-129) HDL Cholesterol 22 mg/dL (40-60) Cholesterol/HDL Ratio 4.4 Test 01/20/19 07:46 Glucose (Fingerstick) 95 mg/dL (70-99) Laboratory Tests Test 01/20/19 04:00 01/20/19 07:46 White Blood Count 2.8 x10^3/uL (4.0-11.0) Red Blood Count 2.25 x10^6/uL (4.30-5.70) Hemoglobin 6.8 g/dL (13.0-17.5) Hematocrit 20.5 % (39.0-53.0) Mean Corpuscular Volume 91 fL (79-100) Mean Corpuscular Hemoglobin 30 pg (25-35) Mean Corpuscular Hemoglobin Concent 33 g/dL (31-37) Red Cell Distribution Width 17.4 % (11.5-14.5) Platelet Count 63 x10^3/uL (140-400) Neutrophils (%) (Auto) 69 % (31-73) Lymphocytes (%) (Auto) 20 % (24-48) Monocytes (%) (Auto) 6 % (0-9) Eosinophils (%) (Auto) 4 % (0-3) Basophils (%) (Auto) 1 % (0-3) Neutrophils # (Auto) 2.0 x10^3uL (1.8-7.7) Lymphocytes # (Auto) 0.6 x10^3/uL (1.0-4.8) Monocytes # (Auto) 0.2 x10^3/uL (0.0-1.1) Eosinophils # (Auto) 0.1 x10^3/uL (0.0-0.7) Basophils # (Auto) 0.0 x10^3/uL (0.0-0.2) Sodium Level 137 mmol/L (136-145) Potassium Level 4.6 mmol/L (3.5-5.1) Chloride Level 101 mmol/L (98-107) Carbon Dioxide Level 23 mmol/L (21-32) Anion Gap 13 (6-14) Blood Urea Nitrogen 55 mg/dL (8-26) Creatinine 10.1 mg/dL (0.7-1.3) Estimated GFR (Cockcroft-Gault) 5.1 Glucose Level 99 mg/dL (70-99) Calcium Level 8.0 mg/dL (8.5-10.1) Phosphorus Level 7.0 mg/dL (2.6-4.7) Albumin 2.4 g/dL (3.4-5.0) Glucose (Fingerstick) 95 mg/dL (70-99) Medications Current Medications Sodium Chloride 250 ml @ 250 mls/hr 1X ONCE IV Last administered on 01/18/19at 16:45; Start 01/18/19 at 16:45; Stop 01/18/19 at 17:44; Status DC Acetaminophen (Tylenol) 650 mg PRN Q6HRS PRN PO PAIN; Start 01/19/19 at 00:00 Vitamin B Complex/ Vitamin C (Surekha-Vic) 1 tab DAILY PO Last administered on 01/20/19 08:51; Start 01/19/19 at 09:00 Nortriptyline HCl (Pamelor) 25 mg QHS PO Last administered on 01/19/19at 21:08; Start 01/19/19 at 21:00 Non-Formulary Medication (Flaxseed Oil (Flax Oil)) 1,000 mg DAILY PO ; Start 01/19/19 at 09:00; Status UNV Cetirizine HCl (ZyrTEC) 10 mg PRN Q48HR PRN PO ALLERGIES Last administered on 01/19/19 08:51; Start 01/19/19 at 00:00 Sertraline HCl (Zoloft) 200 mg DAILY PO Last administered on 01/20/19 08:51; Start 01/19/19 at 09:00 Magnesium Sulfate 50 ml @ 25 mls/hr 1X ONCE IV Last administered on 01/19/19at 00:16; Start 01/19/19 at 00:00; Stop 01/19/19 at 01:59; Status DC Sodium Chloride 1,000 ml @ 1,000 mls/hr Q1H PRN IV hypotension; Start 01/20/19 at 09:07; Stop 01/20/19 at 15:06 Albumin Human 200 ml @ 200 mls/hr 1X PRN PRN IV Hypotension; Start 01/20/19 at 09:15; Stop 01/20/19 at 15:14 Sodium Chloride (Normal Saline Flush) 10 ml 1X PRN PRN IV AP catheter pack; Start 01/20/19 at 09:15; Stop 01/21/19 at 09:14 Sodium Chloride (Normal Saline Flush) 10 ml 1X PRN PRN IV 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; Start 01/20/19 at 09:15; Stop 01/21/19 at 09:14 Sodium Chloride 1,000 ml @ 400 mls/hr Q2H30M PRN IV PATENCY; Start 01/20/19 at 09:07; Stop 01/20/19 at 21:06 Info (PHARMACY MONITORING -- do not chart) 1 each PRN DAILY PRN MC SEE COMMENTS; Start 01/20/19 at 09:15; Status UNV Info (PHARMACY MONITORING -- do not chart) 1 each PRN DAILY PRN MC SEE COMMENTS; Start 01/20/19 at 09:15 Active Scripts Active Reported Tylenol (Acetaminophen) 325 Mg Tablet 1-2 Tab PO PRN Q6HRS PRN Flax Oil (Flaxseed Oil) 1,000 Mg Capsule 1,000 Mg PO DAILY Sertraline Hcl 100 Mg Tablet 200 Mg PO DAILY Nortriptyline Hcl 25 Mg Capsule 1 Cap PO QHS Renal Vitamin Tablet (Folic Acid/Vit Bcomp,C) 0.8 Mg Tablet 0.8 Mg PO DAILY Loratadine 10 Mg Tablet 1 Tab PO PRN Q48HR Vitals/I & O Vital Sign - Last 24 Hours 01/19/19 01/19/19 01/19/19 01/19/19 15:00 19:00 19:05 23:01 Temp 98.1 98.1 98.5 98.1 98.1 98.5 Pulse 73 72 79 Resp 16 18 20 B/P (MAP) 122/64 (83) 107/58 (74) 127/61 (83) Pulse Ox 97 98 95 O2 Delivery Room Air Room Air Room Air Room Air 01/20/19 01/20/19 01/20/19 01/20/19 02:46 07:45 08:00 11:04 Temp 97.5 98.1 97.9 97.5 98.1 97.9 Pulse 75 76 70 Resp 17 14 20 B/P (MAP) 113/59 (77) 132/69 (90) 114/65 Pulse Ox 98 96 O2 Delivery Room Air Room Air Room Air 01/20/19 01/20/19 01/20/19 01/20/19 11:27 11:37 11:59 12:15 Temp 97.1 97.1 97.3 97.1 97.1 97.3 Pulse 68 69 67 Resp 20 18 20 B/P (MAP) 112/61 109/58 116/64 O2 Delivery Room Air 01/20/19 12:37 Temp 97.4 97.4 Pulse 67 Resp 20 B/P (MAP) 114/68 Intake and Output 01/19/19 01/19/19 01/20/19 15:00 23:00 07:00 Intake Total 300 ml 420 ml Output Total 100 ml 100 ml 50 ml Balance -100 ml 200 ml 370 ml Images ECHO - The left ventricular systolic function is normal. The Ejection Fraction is 60%. There is normal LV segmental wall motion. Trace to mild mitral regurgitation. Trace tricuspid regurgitation. The PA pressure was estimated at 32 mmHg. There is no evidence of significant pericardial effusion. SHAMAR PONCE MD January 20, 2019 14:51
[2019-01-20 19:10] LABS: HEMATOCRIT 28.3 % (39.0-53.0)
--- NOTE | 2019-01-20 19:33 | NUR ---
Pt in bed assessment completed pt denies pain at this time will resume care and continue to monitor pt. Call light in reach.
[2019-01-20] MEDS: NORTRIPTYLINE 25 MG CAPSULE PO SCH (20:47)
[2019-01-21 02:54] VITALS: BP 122/68
[2019-01-21 05:14] LABS: BASO % 1 % (0-3); EOS # 0.1 x10^3/uL (0.0-0.7); EOS % 3 % (0-3); HEMOGLOBIN 9.1 g/dL (13.0-17.5); LYMPH # 0.4 x10^3/uL (1.0-4.8); LYMPH % 12 % (24-48); MEAN CORPUSCULAR HEMOGLOBIN 30 pg (25-35); MEAN CORPUSCULAR HGB CONC 34 g/dL (31-37); MEAN CORPUSCULAR VOLUME 90 fL (79-100); MONO # 0.2 x10^3/uL (0.0-1.1); MONO % 5 % (0-9); NEUT # 2.9 x10^3uL (1.8-7.7); NEUT % 79 % (31-73); PLATELET COUNT 62 x10^3/uL (140-400); RED BLOOD COUNT 3.01 x10^6/uL (4.30-5.70); RED CELL DISTRIBUTION WIDTH 17.4 % (11.5-14.5); WHITE BLOOD COUNT 3.6 x10^3/uL (4.0-11.0)
[2019-01-21 06:53] LABS: ALBUMIN 2.4 g/dL (3.4-5.0); CALCIUM 7.9 mg/dL (8.5-10.1); CREATININE 6.9 mg/dL (0.7-1.3); GFR 7.9; POTASSIUM 4.2 mmol/L (3.5-5.1)
[2019-01-21 07:50] VITALS: BP 119/73
[2019-01-21] MEDS: SERTRALINE 50 MG TABLET. PO SCH (08:24)
[2019-01-21] MEDS: FOLIC/VIT B COMP W-C (RENAL) TABLET. PO SCH (08:24)
[2019-01-21] MEDS ORDERED: CALC667T4 PO (08:28)
[2019-01-21 10:23] VITALS: BP 118/65
--- NOTE | 2019-01-21 12:04 | PDOC ---
Renal-Progress Notes Subjective Notes Notes NONE History of Present Illness Hx of present illness STABLE Vitals Vitals Vital Signs Date Time Temp Pulse Resp B/P (MAP) Pulse Ox O2 Delivery O2 Flow Rate FiO2 01/21/19 11:54 Room Air 01/21/19 10:23 98.3 76 18 118/65 (82) 95 98.3 Weight Weight [ ] I.O. Intake and Output Intake and Output 01/21/19 07:00 Intake Total 940 ml Balance 940 ml Intake Oral 820 ml Blood Product IV Normal Saline Flush 120 ml Labs Labs Laboratory Tests Test 01/20/19 19:00 01/21/19 04:00 01/21/19 05:00 Hemoglobin 9.4 g/dL (13.0-17.5) 9.1 g/dL (13.0-17.5) Hematocrit 28.3 % (39.0-53.0) 27.0 % (39.0-53.0) Mean Corpuscular Hemoglobin Concent 33 g/dL (31-37) 34 g/dL (31-37) White Blood Count 3.6 x10^3/uL (4.0-11.0) Red Blood Count 3.01 x10^6/uL (4.30-5.70) Mean Corpuscular Volume 90 fL (79-100) Mean Corpuscular Hemoglobin 30 pg (25-35) Red Cell Distribution Width 17.4 % (11.5-14.5) Platelet Count 62 x10^3/uL (140-400) Neutrophils (%) (Auto) 79 % (31-73) Lymphocytes (%) (Auto) 12 % (24-48) Monocytes (%) (Auto) 5 % (0-9) Eosinophils (%) (Auto) 3 % (0-3) Basophils (%) (Auto) 1 % (0-3) Neutrophils # (Auto) 2.9 x10^3uL (1.8-7.7) Lymphocytes # (Auto) 0.4 x10^3/uL (1.0-4.8) Monocytes # (Auto) 0.2 x10^3/uL (0.0-1.1) Eosinophils # (Auto) 0.1 x10^3/uL (0.0-0.7) Basophils # (Auto) 0.0 x10^3/uL (0.0-0.2) Sodium Level 135 mmol/L (136-145) Potassium Level 4.2 mmol/L (3.5-5.1) Chloride Level 99 mmol/L (98-107) Carbon Dioxide Level 27 mmol/L (21-32) Anion Gap 9 (6-14) Blood Urea Nitrogen 33 mg/dL (8-26) Creatinine 6.9 mg/dL (0.7-1.3) Estimated GFR (Cockcroft-Gault) 7.9 Glucose Level 101 mg/dL (70-99) Calcium Level 7.9 mg/dL (8.5-10.1) Phosphorus Level 5.0 mg/dL (2.6-4.7) Albumin 2.4 g/dL (3.4-5.0) Iron Level 23 ug/dL (65-175) Total Iron Binding Capacity 196 ug/dL (250-450) Iron Saturation 12 % (15-34) Ferritin 1545 ng/mL (26-388) Review of Systems Constitutional: yes: alert, oriented Ears/Nose/Throat: Yes: no symptom reported Eyes: Yes: no symptom reported Pulmonary: Yes dyspnea Cardiovascular: Yes no symptom reported Gastrointestional: Yes: no symptom reported Genitourinary: Yes: no symptom reported Musculoskeletal: Yes: no symptom reported Skin: Yes no symptom reported Psychiatric/Neurological: Yes: no symptom reported Endocrine: Yes: no symptom reported Physical Exam General Appearance: no apparent distress Skin: warm Respiratory: decreased breath sounds Heart: S1S2 Abdomen: soft, bowel sounds present Genitourinary: bladder flat Extremities: pulses present Musculoskeletal: Osteoarthritis Assessment Assessment IMP ESRD ANEMIA SYNCOPE PANCYTOPENIA PLAN HEME ONC EVAL NEUROLOGY EVALUATION HD TTS WILL FOLLOW ODALIS NEAL MD January 21, 2019 12:04
--- NOTE | 2019-01-21 13:03 | PDOC ---
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 would be appropriate for Heme/Onc consultation, will place order. He is amenable to a bone marrow Bx on Tuesday if necessary ESRD on HD - will continue, next session Tuesday Abnormal CXR - left basilar infiltrate - treat for HCAP History of Present Illness History of Present Illness 73-year-old male [place] w/ PMHx [facility]) who presents to the emergency department for evaluation. He states he was getting hemodialysis, when he apparently passed out. He states he did not get a full dialysis session, approximately half session. He states he feels generally weak at this time. He denies any pain, including any chest pain or shortness of breath, dizziness or lightheadedness. He does appear somewhat pale. There are no alleviating or exacerbating factors to his symptoms otherwise. He does not have a history of coronary artery disease, however he is somewhat of a limited historian. There are no old records available for the patient at this facility. 01/19: Negative carotid dopplers, very mildly elevated RVSP on echo, otherwise WNL. Seen by neurology and cardiology in consultation, unlikely to be neurologically or cardiac mediated syncope. 01/20: Had Hb 6.8 this morning, 2u PRBC transfused in dialysis. BP 60/40 after session, given 500cc saline bolus. Seen after dialysis. He is feeling better now, eating. Not dizzy, BP better controlled Plan: Remain inpatient to adjust his blood pressure adrian-dialysis, will likely remain her until Tuesday Consulted heme/onc for possible MDS with his pancytopenia, I have d/w Dr Rae - likely bone marrow biopsy tomorrow Vitals Vitals Vital Signs Date Time Temp Pulse Resp B/P (MAP) Pulse Ox O2 Delivery O2 Flow Rate FiO2 01/21/19 11:54 Room Air 01/21/19 10:23 98.3 76 18 118/65 (82) 95 98.3 Physical Exam General: Alert, Cooperative, No acute distress Heart: Regular rate Lungs: Clear Abdomen: Normal bowel sounds Extremities: No clubbing, No cyanosis Skin: No rashes, No breakdown Labs LABS Laboratory Tests Test 01/20/19:00 01/21/19 04:00 01/21/19 05:00 Hemoglobin 9.4 g/dL (13.0-17.5) 9.1 g/dL (13.0-17.5) Hematocrit 28.3 % (39.0-53.0) 27.0 % (39.0-53.0) Mean Corpuscular Hemoglobin Concent 33 g/dL (31-37) 34 g/dL (31-37) White Blood Count 3.6 x10^3/uL (4.0-11.0) Red Blood Count 3.01 x10^6/uL (4.30-5.70) Mean Corpuscular Volume 90 fL (79-100) Mean Corpuscular Hemoglobin 30 pg (25-35) Red Cell Distribution Width 17.4 % (11.5-14.5) Platelet Count 62 x10^3/uL (140-400) Neutrophils (%) (Auto) 79 % (31-73) Lymphocytes (%) (Auto) 12 % (24-48) Monocytes (%) (Auto) 5 % (0-9) Eosinophils (%) (Auto) 3 % (0-3) Basophils (%) (Auto) 1 % (0-3) Neutrophils # (Auto) 2.9 x10^3uL (1.8-7.7) Lymphocytes # (Auto) 0.4 x10^3/uL (1.0-4.8) Monocytes # (Auto) 0.2 x10^3/uL (0.0-1.1) Eosinophils # (Auto) 0.1 x10^3/uL (0.0-0.7) Basophils # (Auto) 0.0 x10^3/uL (0.0-0.2) Sodium Level 135 mmol/L (136-145) Potassium Level 4.2 mmol/L (3.5-5.1) Chloride Level 99 mmol/L (98-107) Carbon Dioxide Level 27 mmol/L (21-32) Anion Gap 9 (6-14) Blood Urea Nitrogen 33 mg/dL (8-26) Creatinine 6.9 mg/dL (0.7-1.3) Estimated GFR (Cockcroft-Gault) 7.9 Glucose Level 101 mg/dL (70-99) Calcium Level 7.9 mg/dL (8.5-10.1) Phosphorus Level 5.0 mg/dL (2.6-4.7) Albumin 2.4 g/dL (3.4-5.0) Iron Level 23 ug/dL (65-175) Total Iron Binding Capacity 196 ug/dL (250-450) Iron Saturation 12 % (15-34) Ferritin 1545 ng/mL (26-388) Assessment and Plan Assessmemt and Plan Problems Medical Problems: (1) Renal failure Status: Acute (2) Syncope Status: Acute Comment Review of Relevant I have reviewed the following items bhargav (where applicable) has been applied. Labs Laboratory Tests Test 01/19/19 13:57 01/20/19 04:00 01/20/19 07:46 01/20/19 19:00 Troponin I Quantitative 0.023 ng/mL (0.000-0.055) White Blood Count 2.8 x10^3/uL (4.0-11.0) Red Blood Count 2.25 x10^6/uL (4.30-5.70) Hemoglobin 6.8 g/dL (13.0-17.5) 9.4 g/dL (13.0-17.5) Hematocrit 20.5 % (39.0-53.0) 28.3 % (39.0-53.0) Mean Corpuscular Volume 91 fL (79-100) Mean Corpuscular Hemoglobin 30 pg (25-35) Mean Corpuscular Hemoglobin Concent 33 g/dL (31-37) 33 g/dL (31-37) Red Cell Distribution Width 17.4 % (11.5-14.5) Platelet Count 63 x10^3/uL (140-400) Neutrophils (%) (Auto) 69 % (31-73) Lymphocytes (%) (Auto) 20 % (24-48) Monocytes (%) (Auto) 6 % (0-9) Eosinophils (%) (Auto) 4 % (0-3) Basophils (%) (Auto) 1 % (0-3) Neutrophils # (Auto) 2.0 x10^3uL (1.8-7.7) Lymphocytes # (Auto) 0.6 x10^3/uL (1.0-4.8) Monocytes # (Auto) 0.2 x10^3/uL (0.0-1.1) Eosinophils # (Auto) 0.1 x10^3/uL (0.0-0.7) Basophils # (Auto) 0.0 x10^3/uL (0.0-0.2) Sodium Level 137 mmol/L (136-145) Potassium Level 4.6 mmol/L (3.5-5.1) Chloride Level 101 mmol/L (98-107) Carbon Dioxide Level 23 mmol/L (21-32) Anion Gap 13 (6-14) Blood Urea Nitrogen 55 mg/dL (8-26) Creatinine 10.1 mg/dL (0.7-1.3) Estimated GFR (Cockcroft-Gault) 5.1 Glucose Level 99 mg/dL (70-99) Calcium Level 8.0 mg/dL (8.5-10.1) Phosphorus Level 7.0 mg/dL (2.6-4.7) Albumin 2.4 g/dL (3.4-5.0) Glucose (Fingerstick) 95 mg/dL (70-99) Test 01/21/19 04:00 01/21/19 05:00 White Blood Count 3.6 x10^3/uL (4.0-11.0) Red Blood Count 3.01 x10^6/uL (4.30-5.70) Hemoglobin 9.1 g/dL (13.0-17.5) Hematocrit 27.0 % (39.0-53.0) Mean Corpuscular Volume 90 fL (79-100) Mean Corpuscular Hemoglobin 30 pg (25-35) Mean Corpuscular Hemoglobin Concent 34 g/dL (31-37) Red Cell Distribution Width 17.4 % (11.5-14.5) Platelet Count 62 x10^3/uL (140-400) Neutrophils (%) (Auto) 79 % (31-73) Lymphocytes (%) (Auto) 12 % (24-48) Monocytes (%) (Auto) 5 % (0-9) Eosinophils (%) (Auto) 3 % (0-3) Basophils (%) (Auto) 1 % (0-3) Neutrophils # (Auto) 2.9 x10^3uL (1.8-7.7) Lymphocytes # (Auto) 0.4 x10^3/uL (1.0-4.8) Monocytes # (Auto) 0.2 x10^3/uL (0.0-1.1) Eosinophils # (Auto) 0.1 x10^3/uL (0.0-0.7) Basophils # (Auto) 0.0 x10^3/uL (0.0-0.2) Sodium Level 135 mmol/L (136-145) Potassium Level 4.2 mmol/L (3.5-5.1) Chloride Level 99 mmol/L (98-107) Carbon Dioxide Level 27 mmol/L (21-32) Anion Gap 9 (6-14) Blood Urea Nitrogen 33 mg/dL (8-26) Creatinine 6.9 mg/dL (0.7-1.3) Estimated GFR (Cockcroft-Gault) 7.9 Glucose Level 101 mg/dL (70-99) Calcium Level 7.9 mg/dL (8.5-10.1) Phosphorus Level 5.0 mg/dL (2.6-4.7) Albumin 2.4 g/dL (3.4-5.0) Iron Level 23 ug/dL (65-175) Total Iron Binding Capacity 196 ug/dL (250-450) Iron Saturation 12 % (15-34) Ferritin 1545 ng/mL (26-388) Laboratory Tests Test 01/20/19 19:00 01/21/19 04:00 01/21/19 05:00 Hemoglobin 9.4 g/dL (13.0-17.5) 9.1 g/dL (13.0-17.5) Hematocrit 28.3 % (39.0-53.0) 27.0 % (39.0-53.0) Mean Corpuscular Hemoglobin Concent 33 g/dL (31-37) 34 g/dL (31-37) White Blood Count 3.6 x10^3/uL (4.0-11.0) Red Blood Count 3.01 x10^6/uL (4.30-5.70) Mean Corpuscular Volume 90 fL (79-100) Mean Corpuscular Hemoglobin 30 pg (25-35) Red Cell Distribution Width 17.4 % (11.5-14.5) Platelet Count 62 x10^3/uL (140-400) Neutrophils (%) (Auto) 79 % (31-73) Lymphocytes (%) (Auto) 12 % (24-48) Monocytes (%) (Auto) 5 % (0-9) Eosinophils (%) (Auto) 3 % (0-3) Basophils (%) (Auto) 1 % (0-3) Neutrophils # (Auto) 2.9 x10^3uL (1.8-7.7) Lymphocytes # (Auto) 0.4 x10^3/uL (1.0-4.8) Monocytes # (Auto) 0.2 x10^3/uL (0.0-1.1) Eosinophils # (Auto) 0.1 x10^3/uL (0.0-0.7) Basophils # (Auto) 0.0 x10^3/uL (0.0-0.2) Sodium Level 135 mmol/L (136-145) Potassium Level 4.2 mmol/L (3.5-5.1) Chloride Level 99 mmol/L (98-107) Carbon Dioxide Level 27 mmol/L (21-32) Anion Gap 9 (6-14) Blood Urea Nitrogen 33 mg/dL (8-26) Creatinine 6.9 mg/dL (0.7-1.3) Estimated GFR (Cockcroft-Gault) 7.9 Glucose Level 101 mg/dL (70-99) Calcium Level 7.9 mg/dL (8.5-10.1) Phosphorus Level 5.0 mg/dL (2.6-4.7) Albumin 2.4 g/dL (3.4-5.0) Iron Level 23 ug/dL (65-175) Total Iron Binding Capacity 196 ug/dL (250-450) Iron Saturation 12 % (15-34) Ferritin 1545 ng/mL (26-388) Medications Current Medications Sodium Chloride 250 ml @ 250 mls/hr 1X ONCE IV Last administered on 01/18/19at 16:45; Start 01/18/19 at 16:45; Stop 01/18/19 at 17:44; Status DC Acetaminophen (Tylenol) 650 mg PRN Q6HRS PRN PO PAIN; Start 01/19/19 at 00:00 Vitamin B Complex/ Vitamin C (Surekha-Vic) 1 tab DAILY PO Last administered on 01/21/19at 08:24; Start 01/19/19 at 09:00 Nortriptyline HCl (Pamelor) 25 mg QHS PO Last administered on 01/20/19at 20:47; Start 01/19/19 at 21:00 Non-Formulary Medication (Flaxseed Oil (Flax Oil)) 1,000 mg DAILY PO ; Start 01/19/19 at 09:00; Status UNV Cetirizine HCl (ZyrTEC) 10 mg PRN Q48HR PRN PO ALLERGIES Last administered on 01/19/19at 08:51; Start 01/19/19 at 00:00 Sertraline HCl (Zoloft) 200 mg DAILY PO Last administered on 01/21/19at 08:24; Start 01/19/19 at 09:00 Magnesium Sulfate 50 ml @ 25 mls/hr 1X ONCE IV Last administered on 01/19/19at 00:16; Start 01/19/19 at 00:00; Stop 01/19/19 at 01:59; Status DC Sodium Chloride 1,000 ml @ 1,000 mls/hr Q1H PRN IV hypotension; Start 01/20/19 at 09:07; Stop 01/20/19 at 15:06; Status DC Albumin Human 200 ml @ 200 mls/hr 1X PRN PRN IV Hypotension; Start 01/20/19 at 09:15; Stop 01/20/19 at 15:14; Status DC Sodium Chloride (Normal Saline Flush) 10 ml 1X PRN PRN IV AP catheter pack; Start 01/20/19 at 09:15; Stop 01/21/19 at 09:14; Status DC Sodium Chloride (Normal Saline Flush) 10 ml 1X PRN PRN IV REFINERY PROCESS ENGINEER catheter pack; Start 01/20/19 at 09:15; Stop 01/21/19 at 09:14; Status DC Sodium Chloride 1,000 ml @ 400 mls/hr Q2H30M PRN IV PATENCY; Start 01/20/19 at 09:07; Stop 01/20/19 at 21:06; Status DC Info (PHARMACY MONITORING -- do not chart) 1 each PRN DAILY PRN MC SEE COMMENTS; Start 01/20/19 at 09:15; Status UNV Info (PHARMACY MONITORING -- do not chart) 1 each PRN DAILY PRN MC SEE COMMENTS; Start 01/20/19 at 09:15 Active Scripts Active Reported Calcium Acetate 667 Mg Tablet 3 Tab PO TIDWMEALS Tylenol (Acetaminophen) 325 Mg Tablet 1-2 Tab PO PRN Q6HRS PRN Flax Oil (Flaxseed Oil) 1,000 Mg Capsule 1,000 Mg PO DAILY Sertraline Hcl 100 Mg Tablet 200 Mg PO DAILY Nortriptyline Hcl 25 Mg Capsule 1 Cap PO QHS Renal Vitamin Tablet (Folic Acid/Vit Bcomp,C) 0.8 Mg Tablet 0.8 Mg PO DAILY Loratadine 10 Mg Tablet 1 Tab PO PRN Q48HR Vitals/I & O Vital Sign - Last 24 Hours 01/20/19 01/20/19 01/20/19 01/20/19 15:38 18:36 19:30 22:48 Temp 98.1 98.8 98.7 98.1 98.8 98.7 Pulse 88 79 82 Resp 18 16 18 B/P (MAP) 110/62 (78) 113/67 (82) 130/72 (91) Pulse Ox 98 96 95 O2 Delivery Room Air Room Air Room Air Room Air 01/21/19 01/21/19 01/21/19 01/21/19 02:54 07:50 10:23 11:54 Temp 98.4 98.1 98.3 98.4 98.1 98.3 Pulse 89 75 76 Resp 18 18 18 B/P (MAP) 122/68 (86) 119/73 (88) 118/65 (82) Pulse Ox 95 96 95 O2 Delivery Room Air Room Air Room Air Room Air Intake and Output 01/20/19 01/20/19 01/21/19 15:00 23:00 07:00 Intake Total 300 ml 440 ml 200 ml Balance 300 ml 440 ml 200 ml SHAMAR PONCE MD January 21, 2019 13:03
[2019-01-21 14:59] VITALS: BP 120/68
--- NOTE | 2019-01-21 16:35 | PDOC ---
PROGRESS NOTES Subjective Subjective Patient seen and examined He is looking and feeling better today. Objective Objective Vital Signs Date Time Temp Pulse Resp B/P (MAP) Pulse Ox O2 Delivery O2 Flow Rate FiO2 01/21/19 14:59 98.1 74 18 120/68 (85) 98 Room Air 98.1 l Intake and Output 01/21/19 07:00 Intake Total 940 ml Balance 940 ml Intake Oral 820 ml Blood Product IV Normal Saline Flush 120 ml Physical Exam Abdomen: Normal bowel sounds Heart: Regular rate General: No acute distress Lungs: Clear to auscultation Assessment Assessment Problems Medical Problems: (1) Renal failure Status: Acute (2) Syncope Status: Acute 1. Syncope: Rhythm stable overnight. Has been evaluated by neurology. Blood pressure stable. Possible vasovagal. We'll continue present treatments. We'll arrange outpatient monitoring. 2. ESRD. HD yesterday. Feeling well. 3. DM2: As per the primary service. 4. Hemoglobin of 6.8 yesterday. Transfused. Monitoring lab. 5. Pancytopenia: Comment Review of Relevant I have reviewed the following items bhargav (where applicable) has been applied. Labs Laboratory Tests Test 01/20/19 04:00 01/20/19 07:46 01/20/19 19:00 01/21/19 04:00 White Blood Count 2.8 x10^3/uL (4.0-11.0) 3.6 x10^3/uL (4.0-11.0) Red Blood Count 2.25 x10^6/uL (4.30-5.70) 3.01 x10^6/uL (4.30-5.70) Hemoglobin 6.8 g/dL (13.0-17.5) 9.4 g/dL (13.0-17.5) 9.1 g/dL (13.0-17.5) Hematocrit 20.5 % (39.0-53.0) 28.3 % (39.0-53.0) 27.0 % (39.0-53.0) Mean Corpuscular Volume 91 fL (79-100) 90 fL (79-100) Mean Corpuscular Hemoglobin 30 pg (25-35) 30 pg (25-35) Mean Corpuscular Hemoglobin Concent 33 g/dL (31-37) 33 g/dL (31-37) 34 g/dL (31-37) Red Cell Distribution Width 17.4 % (11.5-14.5) 17.4 % (11.5-14.5) Platelet Count 63 x10^3/uL (140-400) 62 x10^3/uL (140-400) Neutrophils (%) (Auto) 69 % (31-73) 79 % (31-73) Lymphocytes (%) (Auto) 20 % (24-48) 12 % (24-48) Monocytes (%) (Auto) 6 % (0-9) 5 % (0-9) Eosinophils (%) (Auto) 4 % (0-3) 3 % (0-3) Basophils (%) (Auto) 1 % (0-3) 1 % (0-3) Neutrophils # (Auto) 2.0 x10^3uL (1.8-7.7) 2.9 x10^3uL (1.8-7.7) Lymphocytes # (Auto) 0.6 x10^3/uL (1.0-4.8) 0.4 x10^3/uL (1.0-4.8) Monocytes # (Auto) 0.2 x10^3/uL (0.0-1.1) 0.2 x10^3/uL (0.0-1.1) Eosinophils # (Auto) 0.1 x10^3/uL (0.0-0.7) 0.1 x10^3/uL (0.0-0.7) Basophils # (Auto) 0.0 x10^3/uL (0.0-0.2) 0.0 x10^3/uL (0.0-0.2) Sodium Level 137 mmol/L (136-145) 135 mmol/L (136-145) Potassium Level 4.6 mmol/L (3.5-5.1) 4.2 mmol/L (3.5-5.1) Chloride Level 101 mmol/L (98-107) 99 mmol/L (98-107) Carbon Dioxide Level 23 mmol/L (21-32) 27 mmol/L (21-32) Anion Gap 13 (6-14) 9 (6-14) Blood Urea Nitrogen 55 mg/dL (8-26) 33 mg/dL (8-26) Creatinine 10.1 mg/dL (0.7-1.3) 6.9 mg/dL (0.7-1.3) Estimated GFR (Cockcroft-Gault) 5.1 7.9 Glucose Level 99 mg/dL (70-99) 101 mg/dL (70-99) Calcium Level 8.0 mg/dL (8.5-10.1) 7.9 mg/dL (8.5-10.1) Phosphorus Level 7.0 mg/dL (2.6-4.7) 5.0 mg/dL (2.6-4.7) Albumin 2.4 g/dL (3.4-5.0) 2.4 g/dL (3.4-5.0) Glucose (Fingerstick) 95 mg/dL (70-99) Test 01/21/19 05:00 Iron Level 23 ug/dL (65-175) Total Iron Binding Capacity 196 ug/dL (250-450) Iron Saturation 12 % (15-34) Ferritin 1545 ng/mL (26-388) Laboratory Tests Test 01/20/19 19:00 01/21/19 04:00 01/21/19 05:00 Hemoglobin 9.4 g/dL (13.0-17.5) 9.1 g/dL (13.0-17.5) Hematocrit 28.3 % (39.0-53.0) 27.0 % (39.0-53.0) Mean Corpuscular Hemoglobin Concent 33 g/dL (31-37) 34 g/dL (31-37) White Blood Count 3.6 x10^3/uL (4.0-11.0) Red Blood Count 3.01 x10^6/uL (4.30-5.70) Mean Corpuscular Volume 90 fL (79-100) Mean Corpuscular Hemoglobin 30 pg (25-35) Red Cell Distribution Width 17.4 % (11.5-14.5) Platelet Count 62 x10^3/uL (140-400) Neutrophils (%) (Auto) 79 % (31-73) Lymphocytes (%) (Auto) 12 % (24-48) Monocytes (%) (Auto) 5 % (0-9) Eosinophils (%) (Auto) 3 % (0-3) Basophils (%) (Auto) 1 % (0-3) Neutrophils # (Auto) 2.9 x10^3uL (1.8-7.7) Lymphocytes # (Auto) 0.4 x10^3/uL (1.0-4.8) Monocytes # (Auto) 0.2 x10^3/uL (0.0-1.1) Eosinophils # (Auto) 0.1 x10^3/uL (0.0-0.7) Basophils # (Auto) 0.0 x10^3/uL (0.0-0.2) Sodium Level 135 mmol/L (136-145) Potassium Level 4.2 mmol/L (3.5-5.1) Chloride Level 99 mmol/L (98-107) Carbon Dioxide Level 27 mmol/L (21-32) Anion Gap 9 (6-14) Blood Urea Nitrogen 33 mg/dL (8-26) Creatinine 6.9 mg/dL (0.7-1.3) Estimated GFR (Cockcroft-Gault) 7.9 Glucose Level 101 mg/dL (70-99) Calcium Level 7.9 mg/dL (8.5-10.1) Phosphorus Level 5.0 mg/dL (2.6-4.7) Albumin 2.4 g/dL (3.4-5.0) Iron Level 23 ug/dL (65-175) Total Iron Binding Capacity 196 ug/dL (250-450) Iron Saturation 12 % (15-34) Ferritin 1545 ng/mL (26-388) Medications Current Medications Sodium Chloride 250 ml @ 250 mls/hr 1X ONCE IV Last administered on 01/18/19at 16:45; Start 01/18/19 at 16:45; Stop 01/18/19 at 17:44; Status DC Acetaminophen (Tylenol) 650 mg PRN Q6HRS PRN PO PAIN; Start 01/19/19 at 00:00 Vitamin B Complex/ Vitamin C (Surekha-Vic) 1 tab DAILY PO Last administered on 01/21/19at 08:24; Start 01/19/19 at 09:00 Nortriptyline HCl (Pamelor) 25 mg QHS PO Last administered on 01/20/19at 20:47; Start 01/19/19 at 21:00 Non-Formulary Medication (Flaxseed Oil (Flax Oil)) 1,000 mg DAILY PO ; Start 01/19/19 at 09:00; Status UNV Cetirizine HCl (ZyrTEC) 10 mg PRN Q48HR PRN PO ALLERGIES Last administered on 01/19/19at 08:51; Start 01/19/19 at 00:00 Sertraline HCl (Zoloft) 200 mg DAILY PO Last administered on 01/21/19at 08:24; Start 01/19/19 at 09:00 Magnesium Sulfate 50 ml @ 25 mls/hr 1X ONCE IV Last administered on 01/19/19at 00:16; Start 01/19/19 at 00:00; Stop 01/19/19 at 01:59; Status DC Sodium Chloride 1,000 ml @ 1,000 mls/hr Q1H PRN IV hypotension; Start 01/20/19 at 09:07; Stop 01/20/19 at 15:06; Status DC Albumin Human 200 ml @ 200 mls/hr 1X PRN PRN IV Hypotension; Start 01/20/19 at 09:15; Stop 01/20/19 at 15:14; Status DC Sodium Chloride (Normal Saline Flush) 10 ml 1X PRN PRN IV AP catheter pack; Start 01/20/19 at 09:15; Stop 01/21/19 at 09:14; Status DC Sodium Chloride (Normal Saline Flush) 10 ml 1X PRN PRN IV WARRANT CLERK catheter pack; Start 01/20/19 at 09:15; Stop 01/21/19 at 09:14; Status DC Sodium Chloride 1,000 ml @ 400 mls/hr Q2H30M PRN IV PATENCY; Start 01/20/19 at 09:07; Stop 01/20/19 at 21:06; Status DC Info (PHARMACY MONITORING -- do not chart) 1 each PRN DAILY PRN MC SEE COMMENTS; Start 01/20/19 at 09:15; Status UNV Info (PHARMACY MONITORING -- do not chart) 1 each PRN DAILY PRN MC SEE COMMENTS; Start 01/20/19 at 09:15 Active Scripts Active Reported Calcium Acetate 667 Mg Tablet 3 Tab PO TIDWMEALS Tylenol (Acetaminophen) 325 Mg Tablet 1-2 Tab PO PRN Q6HRS PRN Flax Oil (Flaxseed Oil) 1,000 Mg Capsule 1,000 Mg PO DAILY Sertraline Hcl 100 Mg Tablet 200 Mg PO DAILY Nortriptyline Hcl 25 Mg Capsule 1 Cap PO QHS Renal Vitamin Tablet (Folic Acid/Vit Bcomp,C) 0.8 Mg Tablet 0.8 Mg PO DAILY Loratadine 10 Mg Tablet 1 Tab PO PRN Q48HR Vitals/I & O Vital Sign - Last 24 Hours 01/20/19 01/20/19 01/20/19 01/21/19 18:36 19:30 22:48 02:54 Temp 98.8 98.7 98.4 98.8 98.7 98.4 Pulse 79 82 89 Resp 18 18 B/P (MAP) 113/67 (82) 130/72 (91) 122/68 (86) Pulse Ox 96 95 95 O2 Delivery Room Air Room Air Room Air Room Air 01/21/19 01/21/19 01/21/19 01/21/19 07:50 10:23 11:54 14:59 Temp 98.1 98.3 98.1 98.1 98.3 98.1 Pulse 75 76 74 Resp 18 B/P (MAP) 119/73 (88) 118/65 (82) 120/68 (85) Pulse Ox 96 95 98 O2 Delivery Room Air Room Air Room Air Room Air Intake and Output 01/20/19 01/20/19 01/21/19 15:00 23:00 07:00 Intake Total 300 ml 440 ml 200 ml Balance 300 ml 440 ml 200 ml MILKA SMYTH MD January 21, 2019 16:35
[2019-01-21] MEDS ORDERED: LIDOCAINE WITH 8.4% SOD BICARB 3 ML DISP.SYRIN. INJ ONE (18:30)
[2019-01-21 20:00] VITALS: BP 128/73
[2019-01-21] MEDS: NORTRIPTYLINE 25 MG CAPSULE PO SCH (21:28)
[2019-01-21 23:00] VITALS: BP 116/64
[2019-01-22] VITALS (15 sets, daily range): BP systolic 106–123; BP diastolic 58–71
[2019-01-22 07:15] LABS: BASO % 1 % (0-3); EOS # 0.2 x10^3/uL (0.0-0.7); EOS % 5 % (0-3); HEMATOCRIT 25.3 % (39.0-53.0); HEMOGLOBIN 8.4 g/dL (13.0-17.5); LYMPH # 0.5 x10^3/uL (1.0-4.8); LYMPH % 16 % (24-48); MEAN CORPUSCULAR HEMOGLOBIN 30 pg (25-35); MEAN CORPUSCULAR HGB CONC 33 g/dL (31-37); MEAN CORPUSCULAR VOLUME 90 fL (79-100); MONO # 0.2 x10^3/uL (0.0-1.1); MONO % 6 % (0-9); NEUT # 2.3 x10^3uL (1.8-7.7); NEUT % 72 % (31-73); PLATELET COUNT 56 x10^3/uL (140-400); RED BLOOD COUNT 2.82 x10^6/uL (4.30-5.70); RED CELL DISTRIBUTION WIDTH 17.2 % (11.5-14.5); WHITE BLOOD COUNT 3.2 x10^3/uL (4.0-11.0)
[2019-01-22 07:27] LABS: ALBUMIN 2.3 g/dL (3.4-5.0); CALCIUM 7.8 mg/dL (8.5-10.1); CREATININE 8.7 mg/dL (0.7-1.3); PHOSPHORUS 7.3 mg/dL (2.6-4.7); POTASSIUM 4.7 mmol/L (3.5-5.1)
[2019-01-22 08:19] LABS: PROTHROMBIN TIME PATIENT 14.2 SEC (11.7-14.0)
--- NOTE | 2019-01-22 09:01 | PDOC ---
PROGRESS NOTES Subjective Subjective HPI - f/u of Anemia ROS - no CP Objective Objective Vital Signs Date Time Temp Pulse Resp B/P (MAP) Pulse Ox O2 Delivery O2 Flow Rate FiO2 01/22/19 07:30 97.5 77 14 112/65 (81) 95 Room Air 97.5 Intake and Output 01/22/19 07:00 Intake Total 1960 ml Output Total 100 ml Balance 1860 ml Intake Oral 1960 ml Output Urine Total 100 ml # Voids 1 # Bowel Movements 1 Physical Exam Heart: Normal S1, Normal S2 General: Alert, Oriented X3, No acute distress Lungs: Clear to auscultation Neuro: Normal speech Psych/Mental Status: Mental status NL Assessment Assessment Problems Medical Problems: (1) Renal failure Status: Acute (2) Syncope Status: Acute 1. Anemia - plan BM bx to eval for MDS. Ordered retic. 2. Leukopenia - plan BM bx to eval for MDS 3. Thrombocytopenia - no bleed, plan BM bx to eval for MDS 4. ESRD on HD Comment Review of Relevant I have reviewed the following items bhargav (where applicable) has been applied. Labs Laboratory Tests Test 01/20/19 19:00 01/21/19 04:00 01/21/19 05:00 01/22/19 06:50 Hemoglobin 9.4 g/dL (13.0-17.5) 9.1 g/dL (13.0-17.5) 8.4 g/dL (13.0-17.5) Hematocrit 28.3 % (39.0-53.0) 27.0 % (39.0-53.0) 25.3 % (39.0-53.0) Mean Corpuscular Hemoglobin Concent 33 g/dL (31-37) 34 g/dL (31-37) 33 g/dL (31-37) White Blood Count 3.6 x10^3/uL (4.0-11.0) 3.2 x10^3/uL (4.0-11.0) Red Blood Count 3.01 x10^6/uL (4.30-5.70) 2.82 x10^6/uL (4.30-5.70) Mean Corpuscular Volume 90 fL (79-100) 90 fL (79-100) Mean Corpuscular Hemoglobin 30 pg (25-35) 30 pg (25-35) Red Cell Distribution Width 17.4 % (11.5-14.5) 17.2 % (11.5-14.5) Platelet Count 62 x10^3/uL (140-400) 56 x10^3/uL (140-400) Neutrophils (%) (Auto) 79 % (31-73) 72 % (31-73) Lymphocytes (%) (Auto) 12 % (24-48) 16 % (24-48) Monocytes (%) (Auto) 5 % (0-9) 6 % (0-9) Eosinophils (%) (Auto) 3 % (0-3) 5 % (0-3) Basophils (%) (Auto) 1 % (0-3) 1 % (0-3) Neutrophils # (Auto) 2.9 x10^3uL (1.8-7.7) 2.3 x10^3uL (1.8-7.7) Lymphocytes # (Auto) 0.4 x10^3/uL (1.0-4.8) 0.5 x10^3/uL (1.0-4.8) Monocytes # (Auto) 0.2 x10^3/uL (0.0-1.1) 0.2 x10^3/uL (0.0-1.1) Eosinophils # (Auto) 0.1 x10^3/uL (0.0-0.7) 0.2 x10^3/uL (0.0-0.7) Basophils # (Auto) 0.0 x10^3/uL (0.0-0.2) 0.0 x10^3/uL (0.0-0.2) Sodium Level 135 mmol/L (136-145) 132 mmol/L (136-145) Potassium Level 4.2 mmol/L (3.5-5.1) 4.7 mmol/L (3.5-5.1) Chloride Level 99 mmol/L (98-107) 97 mmol/L (98-107) Carbon Dioxide Level 27 mmol/L (21-32) 25 mmol/L (21-32) Anion Gap 9 (6-14) 10 (6-14) Blood Urea Nitrogen 33 mg/dL (8-26) 44 mg/dL (8-26) Creatinine 6.9 mg/dL (0.7-1.3) 8.7 mg/dL (0.7-1.3) Estimated GFR (Cockcroft-Gault) 7.9 6.0 Glucose Level 101 mg/dL (70-99) 102 mg/dL (70-99) Calcium Level 7.9 mg/dL (8.5-10.1) 7.8 mg/dL (8.5-10.1) Phosphorus Level 5.0 mg/dL (2.6-4.7) 7.3 mg/dL (2.6-4.7) Albumin 2.4 g/dL (3.4-5.0) 2.3 g/dL (3.4-5.0) Iron Level 23 ug/dL (65-175) Total Iron Binding Capacity 196 ug/dL (250-450) Iron Saturation 12 % (15-34) Ferritin 1545 ng/mL (26-388) Prothrombin Time 14.2 SEC (11.7-14.0) Prothromb Time International Ratio 1.1 (0.8-1.1) Laboratory Tests Test 01/22/19 06:50 White Blood Count 3.2 x10^3/uL (4.0-11.0) Red Blood Count 2.82 x10^6/uL (4.30-5.70) Hemoglobin 8.4 g/dL (13.0-17.5) Hematocrit 25.3 % (39.0-53.0) Mean Corpuscular Volume 90 fL (79-100) Mean Corpuscular Hemoglobin 30 pg (25-35) Mean Corpuscular Hemoglobin Concent 33 g/dL (31-37) Red Cell Distribution Width 17.2 % (11.5-14.5) Platelet Count 56 x10^3/uL (140-400) Neutrophils (%) (Auto) 72 % (31-73) Lymphocytes (%) (Auto) 16 % (24-48) Monocytes (%) (Auto) 6 % (0-9) Eosinophils (%) (Auto) 5 % (0-3) Basophils (%) (Auto) 1 % (0-3) Neutrophils # (Auto) 2.3 x10^3uL (1.8-7.7) Lymphocytes # (Auto) 0.5 x10^3/uL (1.0-4.8) Monocytes # (Auto) 0.2 x10^3/uL (0.0-1.1) Eosinophils # (Auto) 0.2 x10^3/uL (0.0-0.7) Basophils # (Auto) 0.0 x10^3/uL (0.0-0.2) Prothrombin Time 14.2 SEC (11.7-14.0) Prothromb Time International Ratio 1.1 (0.8-1.1) Sodium Level 132 mmol/L (136-145) Potassium Level 4.7 mmol/L (3.5-5.1) Chloride Level 97 mmol/L (98-107) Carbon Dioxide Level 25 mmol/L (21-32) Anion Gap 10 (6-14) Blood Urea Nitrogen 44 mg/dL (8-26) Creatinine 8.7 mg/dL (0.7-1.3) Estimated GFR (Cockcroft-Gault) 6.0 Glucose Level 102 mg/dL (70-99) Calcium Level 7.8 mg/dL (8.5-10.1) Phosphorus Level 7.3 mg/dL (2.6-4.7) Albumin 2.3 g/dL (3.4-5.0) Medications Current Medications Sodium Chloride 250 ml @ 250 mls/hr 1X ONCE IV Last administered on 01/18/19 16:45; Start 01/18/19 at 16:45; Stop 01/18/19 at 17:44; Status DC Acetaminophen (Tylenol) 650 mg PRN Q6HRS PRN PO PAIN; Start 01/19/19 at 00:00 Vitamin B Complex/ Vitamin C (Surekha-Vic) 1 tab DAILY PO Last administered on 01/21/19 08:24; Start 01/19/19 at 09:00 Nortriptyline HCl (Pamelor) 25 mg QHS PO Last administered on 01/21/19 21:28; Start 01/19/19 at 21:00 Non-Formulary Medication (Flaxseed Oil (Flax Oil)) 1,000 mg DAILY PO ; Start 01/19/19 at 09:00; Status UNV Cetirizine HCl (ZyrTEC) 10 mg PRN Q48HR PRN PO ALLERGIES Last administered on 01/19/19at 08:51; Start 01/19/19 at 00:00 Sertraline HCl (Zoloft) 200 mg DAILY PO Last administered on 01/21/19at 08:24; Start 01/19/19 at 09:00 Magnesium Sulfate 50 ml @ 25 mls/hr 1X ONCE IV Last administered on 01/19/19at 00:16; Start 01/19/19 at 00:00; Stop 01/19/19 at 01:59; Status DC Sodium Chloride 1,000 ml @ 1,000 mls/hr Q1H PRN IV hypotension; Start 01/20/19 at 09:07; Stop 01/20/19 at 15:06; Status DC Albumin Human 200 ml @ 200 mls/hr 1X PRN PRN IV Hypotension; Start 01/20/19 at 09:15; Stop 01/20/19 at 15:14; Status DC Sodium Chloride (Normal Saline Flush) 10 ml 1X PRN PRN IV AP catheter pack; Start 01/20/19 at 09:15; Stop 01/21/19 at 09:14; Status DC Sodium Chloride (Normal Saline Flush) 10 ml 1X PRN PRN IV PAINT TRIMMER PIPE BOWLS catheter pack; Start 01/20/19 at 09:15; Stop 01/21/19 at 09:14; Status DC Sodium Chloride 1,000 ml @ 400 mls/hr Q2H30M PRN IV PATENCY; Start 01/20/19 at 09:07; Stop 01/20/19 at 21:06; Status DC Info (PHARMACY MONITORING -- do not chart) 1 each PRN DAILY PRN MC SEE COMMENTS; Start 01/20/19 at 09:15; Status UNV Info (PHARMACY MONITORING -- do not chart) 1 each PRN DAILY PRN MC SEE COMMENTS; Start 01/20/19 at 09:15 Lidocaine/Sodium Bicarbonate (Buffered Lidocaine 1%) 6 ml 1X ONCE INJ ; Start 01/21/19 at 18:30; Stop 01/21/19 at 18:36; Status DC Heparin Sodium (Porcine) (Heparin Sodium) 2,500 unit 1X ONCE INT CAT ; Start 01/21/19 at 18:30; Stop 01/21/19 at 18:36; Status DC Active Scripts Active Reported Calcium Acetate 667 Mg Tablet 3 Tab PO TIDWMEALS Tylenol (Acetaminophen) 325 Mg Tablet 1-2 Tab PO PRN Q6HRS PRN Flax Oil (Flaxseed Oil) 1,000 Mg Capsule 1,000 Mg PO DAILY Sertraline Hcl 100 Mg Tablet 200 Mg PO DAILY Nortriptyline Hcl 25 Mg Capsule 1 Cap PO QHS Renal Vitamin Tablet (Folic Acid/Vit Bcomp,C) 0.8 Mg Tablet 0.8 Mg PO DAILY Loratadine 10 Mg Tablet 1 Tab PO PRN Q48HR Vitals/I & O Vital Sign - Last 24 Hours 01/21/19 01/21/19 01/21/19 01/21/19 10:23 11:54 14:59 20:00 Temp 98.3 98.1 98.3 98.1 Pulse 76 74 Resp 18 18 B/P (MAP) 118/65 (82) 120/68 (85) Pulse Ox 95 98 O2 Delivery Room Air Room Air Room Air Room Air 01/21/19 01/21/19 01/22/19 01/22/19 20:00 23:00 03:25 07:30 Temp 98.0 98.7 98.3 97.5 98.0 98.7 98.3 97.5 Pulse 72 76 72 77 Resp 18 18 18 14 B/P (MAP) 128/73 (91) 116/64 (81) 116/68 (84) 112/65 (81) Pulse Ox 98 97 95 95 O2 Delivery Room Air Room Air Room Air Room Air Intake and Output 01/21/19 01/21/19 01/22/19 15:00 23:00 07:00 Intake Total 440 ml 1320 ml 200 ml Output Total 100 ml Balance 440 ml 1220 ml 200 ml VERÓNICA COBB MD January 22, 2019 09:01
--- NOTE | 2019-01-22 09:55 | PDOC ---
PROGRESS NOTES Assessment Problems Medical Problems: (1) Renal failure Status: Acute (2) Syncope Status: Acute * The patient became lightheaded and fainted during dialysis and has a history of fainting and orthostatic hypotension. He does have diabetes and most likely has an autonomic component to his neuropathy. I find no evidence of central nervous system disease such as stroke, seizure, or other intracranial process. * He is had no further episodes here * Diabetic neuropathy with autonomic component * Note normal carotid Doppler studies Plan * No need for further neurological studies such as imaging the brain or EEG * Counseled patient to be careful when getting up rapidly from a supine position * Consider midodrine, blood pressure a little high now though * Okay for discharge * Follow-up with neurology as needed. * note plans for bone marrow biopsy today Subjective No complaints Objective Vital Signs Date Time Temp Pulse Resp B/P (MAP) Pulse Ox O2 Delivery O2 Flow Rate FiO2 01/22/19 08:00 Room Air 01/22/19 07:30 97.5 77 14 112/65 (81) 95 97.5 Intake and Output 01/22/19 07:00 Intake Total 1960 ml Output Total 100 ml Balance 1860 ml Intake Oral 1960 ml Output Urine Total 100 ml # Voids 1 # Bowel Movements 1 PHYSICAL EXAM Alert. Oriented to time, place and person. PERRL. EOMI. CN: no focal findings. Muscle tone: normal. Muscle strength: 5/5 DTR: 1+ Plantar reflex: flexor Gait: not examined in bed. Sensory exam: Stocking loss. No cerebellar signs elicited. Review of Relevant I have reviewed the following items bhargav (where applicable) has been applied. Labs Laboratory Tests Test 01/20/19 19:00 01/21/19 04:00 01/21/19 05:00 01/22/19 06:50 Hemoglobin 9.4 g/dL (13.0-17.5) 9.1 g/dL (13.0-17.5) 8.4 g/dL (13.0-17.5) Hematocrit 28.3 % (39.0-53.0) 27.0 % (39.0-53.0) 25.3 % (39.0-53.0) Mean Corpuscular Hemoglobin Concent 33 g/dL (31-37) 34 g/dL (31-37) 33 g/dL (31-37) White Blood Count 3.6 x10^3/uL (4.0-11.0) 3.2 x10^3/uL (4.0-11.0) Red Blood Count 3.01 x10^6/uL (4.30-5.70) 2.87 x10^6/uL (4.30-5.70) Mean Corpuscular Volume 90 fL (79-100) 90 fL (79-100) Mean Corpuscular Hemoglobin 30 pg (25-35) 30 pg (25-35) Red Cell Distribution Width 17.4 % (11.5-14.5) 17.2 % (11.5-14.5) Platelet Count 62 x10^3/uL (140-400) 56 x10^3/uL (140-400) Neutrophils (%) (Auto) 79 % (31-73) 72 % (31-73) Lymphocytes (%) (Auto) 12 % (24-48) 16 % (24-48) Monocytes (%) (Auto) 5 % (0-9) 6 % (0-9) Eosinophils (%) (Auto) 3 % (0-3) 5 % (0-3) Basophils (%) (Auto) 1 % (0-3) 1 % (0-3) Neutrophils # (Auto) 2.9 x10^3uL (1.8-7.7) 2.3 x10^3uL (1.8-7.7) Lymphocytes # (Auto) 0.4 x10^3/uL (1.0-4.8) 0.5 x10^3/uL (1.0-4.8) Monocytes # (Auto) 0.2 x10^3/uL (0.0-1.1) 0.2 x10^3/uL (0.0-1.1) Eosinophils # (Auto) 0.1 x10^3/uL (0.0-0.7) 0.2 x10^3/uL (0.0-0.7) Basophils # (Auto) 0.0 x10^3/uL (0.0-0.2) 0.0 x10^3/uL (0.0-0.2) Sodium Level 135 mmol/L (136-145) 132 mmol/L (136-145) Potassium Level 4.2 mmol/L (3.5-5.1) 4.7 mmol/L (3.5-5.1) Chloride Level 99 mmol/L (98-107) 97 mmol/L (98-107) Carbon Dioxide Level 27 mmol/L (21-32) 25 mmol/L (21-32) Anion Gap 9 (6-14) 10 (6-14) Blood Urea Nitrogen 33 mg/dL (8-26) 44 mg/dL (8-26) Creatinine 6.9 mg/dL (0.7-1.3) 8.7 mg/dL (0.7-1.3) Estimated GFR (Cockcroft-Gault) 7.9 6.0 Glucose Level 101 mg/dL (70-99) 102 mg/dL (70-99) Calcium Level 7.9 mg/dL (8.5-10.1) 7.8 mg/dL (8.5-10.1) Phosphorus Level 5.0 mg/dL (2.6-4.7) 7.3 mg/dL (2.6-4.7) Albumin 2.4 g/dL (3.4-5.0) 2.3 g/dL (3.4-5.0) Iron Level 23 ug/dL (65-175) Total Iron Binding Capacity 196 ug/dL (250-450) Iron Saturation 12 % (15-34) Ferritin 1545 ng/mL (26-388) Absolute Reticulocyte Count 0.036 x10^6/uL (0.020-0.120) Percent Reticulocyte Count 1.3 % (0.5-2.3) Immature Reticulocyte Fraction 0.26 (0.20-0.60) Prothrombin Time 14.2 SEC (11.7-14.0) Prothromb Time International Ratio 1.1 (0.8-1.1) Laboratory Tests Test 01/22/19 06:50 White Blood Count 3.2 x10^3/uL (4.0-11.0) Red Blood Count 2.87 x10^6/uL (4.30-5.70) Hemoglobin 8.4 g/dL (13.0-17.5) Hematocrit 25.3 % (39.0-53.0) Mean Corpuscular Volume 90 fL (79-100) Mean Corpuscular Hemoglobin 30 pg (25-35) Mean Corpuscular Hemoglobin Concent 33 g/dL (31-37) Red Cell Distribution Width 17.2 % (11.5-14.5) Platelet Count 56 x10^3/uL (140-400) Neutrophils (%) (Auto) 72 % (31-73) Lymphocytes (%) (Auto) 16 % (24-48) Monocytes (%) (Auto) 6 % (0-9) Eosinophils (%) (Auto) 5 % (0-3) Basophils (%) (Auto) 1 % (0-3) Neutrophils # (Auto) 2.3 x10^3uL (1.8-7.7) Lymphocytes # (Auto) 0.5 x10^3/uL (1.0-4.8) Monocytes # (Auto) 0.2 x10^3/uL (0.0-1.1) Eosinophils # (Auto) 0.2 x10^3/uL (0.0-0.7) Basophils # (Auto) 0.0 x10^3/uL (0.0-0.2) Absolute Reticulocyte Count 0.036 x10^6/uL (0.020-0.120) Percent Reticulocyte Count 1.3 % (0.5-2.3) Immature Reticulocyte Fraction 0.26 (0.20-0.60) Prothrombin Time 14.2 SEC (11.7-14.0) Prothromb Time International Ratio 1.1 (0.8-1.1) Sodium Level 132 mmol/L (136-145) Potassium Level 4.7 mmol/L (3.5-5.1) Chloride Level 97 mmol/L (98-107) Carbon Dioxide Level 25 mmol/L (21-32) Anion Gap 10 (6-14) Blood Urea Nitrogen 44 mg/dL (8-26) Creatinine 8.7 mg/dL (0.7-1.3) Estimated GFR (Cockcroft-Gault) 6.0 Glucose Level 102 mg/dL (70-99) Calcium Level 7.8 mg/dL (8.5-10.1) Phosphorus Level 7.3 mg/dL (2.6-4.7) Albumin 2.3 g/dL (3.4-5.0) Medications Current Medications Sodium Chloride 250 ml @ 250 mls/hr 1X ONCE IV Last administered on 01/18/19at 16:45; Start 01/18/19 at 16:45; Stop 01/18/19 at 17:44; Status DC Acetaminophen (Tylenol) 650 mg PRN Q6HRS PRN PO PAIN; Start 01/19/19 at 00:00 Vitamin B Complex/ Vitamin C (Surekha-Vic) 1 tab DAILY PO Last administered on 01/21/19at 08:24; Start 01/19/19 at 09:00 Nortriptyline HCl (Pamelor) 25 mg QHS PO Last administered on 01/21/19at 21:28; Start 01/19/19 at 21:00 Non-Formulary Medication (Flaxseed Oil (Flax Oil)) 1,000 mg DAILY PO ; Start 01/19/19 at 09:00; Status UNV Cetirizine HCl (ZyrTEC) 10 mg PRN Q48HR PRN PO ALLERGIES Last administered on 01/19/19at 08:51; Start 01/19/19 at 00:00 Sertraline HCl (Zoloft) 200 mg DAILY PO Last administered on 01/21/19at 08:24; Start 01/19/19 at 09:00 Magnesium Sulfate 50 ml @ 25 mls/hr 1X ONCE IV Last administered on 01/19/19at 00:16; Start 01/19/19 at 00:00; Stop 01/19/19 at 01:59; Status DC Sodium Chloride 1,000 ml @ 1,000 mls/hr Q1H PRN IV hypotension; Start 01/20/19 at 09:07; Stop 01/20/19 at 15:06; Status DC Albumin Human 200 ml @ 200 mls/hr 1X PRN PRN IV Hypotension; Start 01/20/19 at 09:15; Stop 01/20/19 at 15:14; Status DC Sodium Chloride (Normal Saline Flush) 10 ml 1X PRN PRN IV AP catheter pack; Start 01/20/19 at 09:15; Stop 01/21/19 at 09:14; Status DC Sodium Chloride (Normal Saline Flush) 10 ml 1X PRN PRN IV 3D MODELER catheter pack; Start 01/20/19 at 09:15; Stop 01/21/19 at 09:14; Status DC Sodium Chloride 1,000 ml @ 400 mls/hr Q2H30M PRN IV PATENCY; Start 01/20/19 at 09:07; Stop 01/20/19 at 21:06; Status DC Info (PHARMACY MONITORING -- do not chart) 1 each PRN DAILY PRN MC SEE COMMENTS; Start 01/20/19 at 09:15; Status UNV Info (PHARMACY MONITORING -- do not chart) 1 each PRN DAILY PRN MC SEE COMMENTS; Start 01/20/19 at 09:15 Lidocaine/Sodium Bicarbonate (Buffered Lidocaine 1%) 6 ml 1X ONCE INJ ; Start 01/21/19 at 18:30; Stop 01/21/19 at 18:36; Status DC Heparin Sodium (Porcine) (Heparin Sodium) 2,500 unit 1X ONCE INT CAT ; Start 01/21/19 at 18:30; Stop 01/21/19 at 18:36; Status DC Active Scripts Active Reported Calcium Acetate 667 Mg Tablet 3 Tab PO TIDWMEALS Tylenol (Acetaminophen) 325 Mg Tablet 1-2 Tab PO PRN Q6HRS PRN Flax Oil (Flaxseed Oil) 1,000 Mg Capsule 1,000 Mg PO DAILY Sertraline Hcl 100 Mg Tablet 200 Mg PO DAILY Nortriptyline Hcl 25 Mg Capsule 1 Cap PO QHS Renal Vitamin Tablet (Folic Acid/Vit Bcomp,C) 0.8 Mg Tablet 0.8 Mg PO DAILY Loratadine 10 Mg Tablet 1 Tab PO PRN Q48HR Vitals/I & O Vital Sign - Last 24 Hours 01/21/19 01/21/19 01/21/19 01/21/19 10:23 11:54 14:59 20:00 Temp 98.3 98.1 98.3 98.1 Pulse 76 74 Resp 18 18 B/P (MAP) 118/65 (82) 120/68 (85) Pulse Ox 95 98 O2 Delivery Room Air Room Air Room Air Room Air 01/21/19 01/21/19 01/22/19 01/22/19 20:00 23:00 03:25 07:30 Temp 98.0 98.7 98.3 97.5 98.0 98.7 98.3 97.5 Pulse 72 76 72 77 Resp 18 18 18 14 B/P (MAP) 128/73 (91) 116/64 (81) 116/68 (84) 112/65 (81) Pulse Ox 98 97 95 95 O2 Delivery Room Air Room Air Room Air Room Air 01/22/19 08:00 O2 Delivery Room Air Intake and Output 01/21/19 01/21/19 01/22/19 15:00 23:00 07:00 Intake Total 440 ml 1320 ml 200 ml Output Total 100 ml Balance 440 ml 1220 ml 200 ml COLLINS BOYD MD January 22, 2019 09:55
--- NOTE | 2019-01-22 10:03 | CONS ---
DATE OF CONSULTATION: 01/21/2019 REQUESTING PHYSICIAN: Dr. Shadi Samaniego. REASON FOR CONSULTATION: Pancytopenia and concern for MDS. HISTORY OF PRESENT ILLNESS: The patient is a 73-year-old gentleman who has end-stage renal disease, and he is on hemodialysis. The patient reports that he has had chronic anemia. He was getting hemodialysis when he apparently passed out, and he did not complete the dialysis session. He was feeling weak and was brought in to [facility] on 01/18/2019. He did not have any chest pain or shortness of breath. No dizziness or lightheadedness. He reports a 70-pound weight loss between 2017 and 2019. He denies hematemesis, melena, hematochezia. No hemoptysis or hematuria. No change in appetite lately. I was asked to see the patient for evaluation of pancytopenia. His hemoglobin at the time of admission was 7.1, and it dropped to 6.8 on 01/20/2019, and he received blood transfusion. He denies any prior history of pancytopenia, but he is aware of prior history of anemia. PAST MEDICAL HISTORY: Diabetes, hypertension. End-stage renal disease, on hemodialysis. FAMILY HISTORY: Positive for diabetes. SOCIAL HISTORY: No smoking or alcohol abuse. He was in the [employer] for 7 years. REVIEW OF SYSTEMS: A 12-point review of system was performed. Pertinent positives are mentioned in the history of present illness. Rest of the system review is negative. PHYSICAL EXAMINATION: GENERAL APPEARANCE: The patient is a 73-year-old gentleman who is in no acute cardiorespiratory distress. VITAL SIGNS: Blood pressure 118/65, temperature 98.3. HEAD: Atraumatic, normocephalic. EYES: No icterus. NECK: Supple. CHEST: Bilaterally symmetrical. HEART: S1, S2 normal. ABDOMEN: Soft, nontender. No hepatosplenomegaly. CENTRAL NERVOUS SYSTEM: No focal deficits. LYMPHATICS: No lymphadenopathy. SKIN: No rashes. PSYCHOLOGIC: Mood and affect are appropriate. LABORATORY DATA: From 01/18/2019, WBC 2.3, hemoglobin 7.1, MCV 91, platelet count 66. Hemoglobin dropped to 6.8 on 01/20/2019, and he received blood transfusion and hemoglobin improved to 9.1 on 01/21/2019. Creatinine 6.9, with a BUN of 33 on 01/21/2019 and a ferritin of 1545, iron 23, TIBC 196, iron saturation 12. IMPRESSION AND PLAN: 1. Normochromic normocytic anemia, etiology could be related to end-stage renal disease and he is on hemodialysis. However, he also has associated leukopenia and thrombocytopenia in the absence of any liver disease, requires further evaluation with a bone marrow aspiration and biopsy to evaluate for myelodysplastic syndrome. I discussed in detail with the patient, and he understands and agrees with the plan. Iron studies performed on 01/21/2019 reveals anemia due to chronic disease. Ferritin is 1545, iron 23, TIBC 196 and iron saturation 12%. 2. Leukopenia and no history of chronic infections. Continue to monitor. WBC was 2.3 on 01/18/2019. 3. Thrombocytopenia. Platelet count 62 on 01/21/2019. No history of liver disease or cirrhosis. No history of bleeding. 4. Syncope, has not had any recurrent episodes. Management per primary team. 5. End-stage renal disease. He is on hemodialysis. I discussed with Dr. Shadi Samaniego. VERÓNICA COBB MD DR: LETICIA/racquel JOB#: [id number] / [id number]
[2019-01-22] MEDS ORDERED: LIDOCAINE WITH 8.4% SOD BICARB 3 ML DISP.SYRIN. ONE (10:21)
--- NOTE | 2019-01-22 10:52 | PDOC ---
Renal-Progress Notes Subjective Notes Notes NO NEW COMPLAINTS History of Present Illness Hx of present illness STABLE Vitals Vitals Vital Signs Date Time Temp Pulse Resp B/P (MAP) Pulse Ox O2 Delivery O2 Flow Rate FiO2 01/22/19 08:00 Room Air 01/22/19 07:30 97.5 77 14 112/65 (81) 95 97.5 Weight Weight [ ] I.O. Intake and Output Intake and Output 01/22/19 06:59 Intake Total 1960 ml Output Total 100 ml Balance 1860 ml Intake Oral 1960 ml Output Urine Total 100 ml # Voids 1 # Bowel Movements 1 Labs Labs Laboratory Tests Test 01/22/19 06:50 White Blood Count 3.2 x10^3/uL (4.0-11.0) Red Blood Count 2.87 x10^6/uL (4.30-5.70) Hemoglobin 8.4 g/dL (13.0-17.5) Hematocrit 25.3 % (39.0-53.0) Mean Corpuscular Volume 90 fL (79-100) Mean Corpuscular Hemoglobin 30 pg (25-35) Mean Corpuscular Hemoglobin Concent 33 g/dL (31-37) Red Cell Distribution Width 17.2 % (11.5-14.5) Platelet Count 56 x10^3/uL (140-400) Neutrophils (%) (Auto) 72 % (31-73) Lymphocytes (%) (Auto) 16 % (24-48) Monocytes (%) (Auto) 6 % (0-9) Eosinophils (%) (Auto) 5 % (0-3) Basophils (%) (Auto) 1 % (0-3) Neutrophils # (Auto) 2.3 x10^3uL (1.8-7.7) Lymphocytes # (Auto) 0.5 x10^3/uL (1.0-4.8) Monocytes # (Auto) 0.2 x10^3/uL (0.0-1.1) Eosinophils # (Auto) 0.2 x10^3/uL (0.0-0.7) Basophils # (Auto) 0.0 x10^3/uL (0.0-0.2) Absolute Reticulocyte Count 0.036 x10^6/uL (0.020-0.120) Percent Reticulocyte Count 1.3 % (0.5-2.3) Immature Reticulocyte Fraction 0.26 (0.20-0.60) Prothrombin Time 14.2 SEC (11.7-14.0) Prothromb Time International Ratio 1.1 (0.8-1.1) Sodium Level 132 mmol/L (136-145) Potassium Level 4.7 mmol/L (3.5-5.1) Chloride Level 97 mmol/L (98-107) Carbon Dioxide Level 25 mmol/L (21-32) Anion Gap 10 (6-14) Blood Urea Nitrogen 44 mg/dL (8-26) Creatinine 8.7 mg/dL (0.7-1.3) Estimated GFR (Cockcroft-Gault) 6.0 Glucose Level 102 mg/dL (70-99) Calcium Level 7.8 mg/dL (8.5-10.1) Phosphorus Level 7.3 mg/dL (2.6-4.7) Albumin 2.3 g/dL (3.4-5.0) Review of Systems Constitutional: yes: alert, oriented Ears/Nose/Throat: Yes: no symptom reported Eyes: Yes: no symptom reported Pulmonary: Yes dyspnea Cardiovascular: Yes no symptom reported Gastrointestional: Yes: no symptom reported Genitourinary: Yes: no symptom reported Musculoskeletal: Yes: no symptom reported Skin: Yes no symptom reported Psychiatric/Neurological: Yes: no symptom reported Endocrine: Yes: no symptom reported Physical Exam General Appearance: no apparent distress Skin: warm Respiratory: decreased breath sounds Heart: S1S2 Abdomen: soft, bowel sounds present Genitourinary: bladder flat Extremities: pulses present Musculoskeletal: Osteoarthritis Assessment Assessment IMP ESRD ANEMIA SYNCOPE PANCYTOPENIA PLAN HEME ONC EVAL NEUROLOGY EVALUATION HD TTS WILL FOLLOW ODALIS NEAL MD January 22, 2019 10:51
[2019-01-22] MEDS ORDERED: MIDAZOLAM HCL/PF 2 MG/2 ML VIAL. ONE (10:55)
[2019-01-22] MEDS ORDERED: fentaNYL PF VIAL 100 MCG/2 ML VIAL ONE (10:55)
--- NOTE | 2019-01-22 11:14 | PDOC ---
MODERATE SEDATION ASSESSMENT RISKS/ALTERNATIVES Risks/Alternatives Risks and alternatives of this type of sedation and procedure discussed with: RISK/ALTERNATIVES: Patient H & P ON CHART H & P H & P on chart and reviewed for co-morbid conditions and appropriate labs. H&P ON CHART: Yes STATUS PREG STATUS ASSESSED: Yes MEDS/ALLERGIES REVIEWED Meds/Allergies Reviewed Medications and Allergies including time and route of recently administered narcotics and sedatives. MEDS/ALLERGIES REVIEWED: Yes ASA RATING ASA RATING: II AIRWAY ASSESSMENT Airway Assessment Airway patency, oral function limitations, presence of caps, crowns, dentures, partials, and ability to extend neck assessed. AIRWAY ASSESSMENT: Yes MALLAMPATI SCORE MALLAMPATI SCORE: II PRE-SEDATION ASSESSMENT PRE-SEDATION ASSESSMENT: Yes JOSÉ MIGUEL LYLE MD January 22, 2019 11:14
[2019-01-22] MEDS ORDERED: LIDOCAINE WITH 8.4% SOD BICARB 3 ML DISP.SYRIN. IJ ONE (11:15)
[2019-01-22] MEDS ORDERED: MIDAZOLAM HCL/PF 2 MG/2 ML VIAL. IV ONE (11:15)
[2019-01-22] MEDS ORDERED: fentaNYL PF VIAL 100 MCG/2 ML VIAL IV ONE (11:15)
--- NOTE | 2019-01-22 11:19 | PDOC ---
SE ALAN QUALITY ANALYST 01/22/19 1119: CARDIO Progress Notes Date and Time Date of Service 01/22/19 Time of Evaluation 1110 Subjective Subjective: No Chest Pain, No shortness of breath, No Palpitations Vitals Vitals Vital Signs Date Time Temp Pulse Resp B/P (MAP) Pulse Ox O2 Delivery O2 Flow Rate FiO2 01/22/19 11:16 78 16 97 Nasal Cannula 2.0 01/22/19 07:30 97.5 112/65 (81) 97.5 Weight Weight [ ] Input and Output Intake and Output Intake and Output 01/22/19 07:00 Intake Total 1960 ml Output Total 100 ml Balance 1860 ml Intake Oral 1960 ml Output Urine Total 100 ml # Voids 1 # Bowel Movements 1 Laboratory Labs Laboratory Tests Test 01/22/19 06:50 White Blood Count 3.2 x10^3/uL (4.0-11.0) Red Blood Count 2.87 x10^6/uL (4.30-5.70) Hemoglobin 8.4 g/dL (13.0-17.5) Hematocrit 25.3 % (39.0-53.0) Mean Corpuscular Volume 90 fL (79-100) Mean Corpuscular Hemoglobin 30 pg (25-35) Mean Corpuscular Hemoglobin Concent 33 g/dL (31-37) Red Cell Distribution Width 17.2 % (11.5-14.5) Platelet Count 56 x10^3/uL (140-400) Neutrophils (%) (Auto) 72 % (31-73) Lymphocytes (%) (Auto) 16 % (24-48) Monocytes (%) (Auto) 6 % (0-9) Eosinophils (%) (Auto) 5 % (0-3) Basophils (%) (Auto) 1 % (0-3) Neutrophils # (Auto) 2.3 x10^3uL (1.8-7.7) Lymphocytes # (Auto) 0.5 x10^3/uL (1.0-4.8) Monocytes # (Auto) 0.2 x10^3/uL (0.0-1.1) Eosinophils # (Auto) 0.2 x10^3/uL (0.0-0.7) Basophils # (Auto) 0.0 x10^3/uL (0.0-0.2) Absolute Reticulocyte Count 0.036 x10^6/uL (0.020-0.120) Percent Reticulocyte Count 1.3 % (0.5-2.3) Immature Reticulocyte Fraction 0.26 (0.20-0.60) Prothrombin Time 14.2 SEC (11.7-14.0) Prothromb Time International Ratio 1.1 (0.8-1.1) Sodium Level 132 mmol/L (136-145) Potassium Level 4.7 mmol/L (3.5-5.1) Chloride Level 97 mmol/L (98-107) Carbon Dioxide Level 25 mmol/L (21-32) Anion Gap 10 (6-14) Blood Urea Nitrogen 44 mg/dL (8-26) Creatinine 8.7 mg/dL (0.7-1.3) Estimated GFR (Cockcroft-Gault) 6.0 Glucose Level 102 mg/dL (70-99) Calcium Level 7.8 mg/dL (8.5-10.1) Phosphorus Level 7.3 mg/dL (2.6-4.7) Albumin 2.3 g/dL (3.4-5.0) Review of Systems Constitutional: yes: alert, oriented Ears/Nose/Throat: Yes: no symptom reported Eyes: Yes: no symptom reported Pulmonary: Yes dyspnea Cardiovascular: Yes no symptom reported Gastrointestional: Yes: no symptom reported Genitourinary: Yes: no symptom reported Musculoskeletal: Yes: no symptom reported Skin: Yes no symptom reported Psychiatric/Neurological: Yes: no symptom reported Endocrine: Yes: no symptom reported Physical Exam HEENT: Neck Supple W Full Motion Chest: Symmetric LUNGS: Clear to Auscultation Heart: S1S2, RRR Abdomen: Soft N/T Extremities: No Edema Neurology: alert, oriented, follow commands Assessment Assessment 1. Syncope: No acute events on tele. Possible autonomic component. Echo with preserved LV systolic function. 2. ESRD on HD 3. DM2: As per PCP 4. Anemia; s/p PRBCs 5. Pancytopenia; bone marrow biopsy today to evaluate for myelodysplastic syndrome Recommendations Monitor telel Consider outpatient event monitor to r/o contributing arrhythmias. Supportive care Ongoing workup as per hemonc MILKA SMYTH MD 01/22/19 1806: CARDIO Progress Notes Assessment Assessment Patient seen and examined. Syncope: No acute events on tele. Possible autonomic component. Echo with preserved LV systolic function. Continuing present treatment. ESRD on HD DM2: As per PCP Anemia; s/p PRBCs. Monitoring SE ALAN APRN January 22, 2019 11:19 MILKA SMYTH MD January 22, 2019 18:06
[2019-01-22] MEDS: SERTRALINE 50 MG TABLET. PO SCH (11:31)
[2019-01-22] MEDS: FOLIC/VIT B COMP W-C (RENAL) TABLET. PO SCH (11:31)
--- NOTE | 2019-01-22 12:12 | PDOC ---
PROGRESS NOTES Chief Complaint Chief Complaint Syncope while on dialysis Pancytopenia CAD Pancytopenia ESRD on HD Abnormal CXR History of Present Illness History of Present Illness Patient seen and examined Patient resting comfortable in NAD Awaiting Bone Marrow Bx today Patient is no longer dizzy Vitals Vitals Vital Signs Date Time Temp Pulse Resp B/P (MAP) Pulse Ox O2 Delivery O2 Flow Rate FiO2 01/22/19 11:30 78 18 107/58 (74) 01/22/19 11:16 97 Nasal Cannula 2.0 01/22/19 07:30 97.5 97.5 Physical Exam General: Alert, Oriented X3, No acute distress Heart: Normal S1, Normal S2 Lungs: Clear Abdomen: Normal bowel sounds Extremities: No clubbing, No cyanosis Skin: No rashes, No breakdown Labs LABS Laboratory Tests Test 01/22/19 06:50 White Blood Count 3.2 x10^3/uL (4.0-11.0) Red Blood Count 2.87 x10^6/uL (4.30-5.70) Hemoglobin 8.4 g/dL (13.0-17.5) Hematocrit 25.3 % (39.0-53.0) Mean Corpuscular Volume 90 fL (79-100) Mean Corpuscular Hemoglobin 30 pg (25-35) Mean Corpuscular Hemoglobin Concent 33 g/dL (31-37) Red Cell Distribution Width 17.2 % (11.5-14.5) Platelet Count 56 x10^3/uL (140-400) Neutrophils (%) (Auto) 72 % (31-73) Lymphocytes (%) (Auto) 16 % (24-48) Monocytes (%) (Auto) 6 % (0-9) Eosinophils (%) (Auto) 5 % (0-3) Basophils (%) (Auto) 1 % (0-3) Neutrophils # (Auto) 2.3 x10^3uL (1.8-7.7) Lymphocytes # (Auto) 0.5 x10^3/uL (1.0-4.8) Monocytes # (Auto) 0.2 x10^3/uL (0.0-1.1) Eosinophils # (Auto) 0.2 x10^3/uL (0.0-0.7) Basophils # (Auto) 0.0 x10^3/uL (0.0-0.2) Absolute Reticulocyte Count 0.036 x10^6/uL (0.020-0.120) Percent Reticulocyte Count 1.3 % (0.5-2.3) Immature Reticulocyte Fraction 0.26 (0.20-0.60) Prothrombin Time 14.2 SEC (11.7-14.0) Prothromb Time International Ratio 1.1 (0.8-1.1) Sodium Level 132 mmol/L (136-145) Potassium Level 4.7 mmol/L (3.5-5.1) Chloride Level 97 mmol/L (98-107) Carbon Dioxide Level 25 mmol/L (21-32) Anion Gap 10 (6-14) Blood Urea Nitrogen 44 mg/dL (8-26) Creatinine 8.7 mg/dL (0.7-1.3) Estimated GFR (Cockcroft-Gault) 6.0 Glucose Level 102 mg/dL (70-99) Calcium Level 7.8 mg/dL (8.5-10.1) Phosphorus Level 7.3 mg/dL (2.6-4.7) Albumin 2.3 g/dL (3.4-5.0) Review of Systems Review of Systems Patient denies abdominal pain Patient denies NOLAN Assessment and Plan Assessmemt and Plan Problems Medical Problems: (1) Renal failure Status: Acute (2) Syncope Status: Acute Assessment: Syncope while on dialysis Pancytopenia CAD Pancytopenia ESRD on HD Abnormal CXR Plan: Bone Marrow Bx- today HD T,TH,S Labs Home meds DVT PPx PT/OT Neuro, Nephro, Heme/Onc following Comment Review of Relevant I have reviewed the following items bhargav (where applicable) has been applied. Labs Laboratory Tests Test 01/20/19 19:00 01/21/19 04:00 01/21/19 05:00 01/22/19 06:50 Hemoglobin 9.4 g/dL (13.0-17.5) 9.1 g/dL (13.0-17.5) 8.4 g/dL (13.0-17.5) Hematocrit 28.3 % (39.0-53.0) 27.0 % (39.0-53.0) 25.3 % (39.0-53.0) Mean Corpuscular Hemoglobin Concent 33 g/dL (31-37) 34 g/dL (31-37) 33 g/dL (31-37) White Blood Count 3.6 x10^3/uL (4.0-11.0) 3.2 x10^3/uL (4.0-11.0) Red Blood Count 3.01 x10^6/uL (4.30-5.70) 2.87 x10^6/uL (4.30-5.70) Mean Corpuscular Volume 90 fL (79-100) 90 fL (79-100) Mean Corpuscular Hemoglobin 30 pg (25-35) 30 pg (25-35) Red Cell Distribution Width 17.4 % (11.5-14.5) 17.2 % (11.5-14.5) Platelet Count 62 x10^3/uL (140-400) 56 x10^3/uL (140-400) Neutrophils (%) (Auto) 79 % (31-73) 72 % (31-73) Lymphocytes (%) (Auto) 12 % (24-48) 16 % (24-48) Monocytes (%) (Auto) 5 % (0-9) 6 % (0-9) Eosinophils (%) (Auto) 3 % (0-3) 5 % (0-3) Basophils (%) (Auto) 1 % (0-3) 1 % (0-3) Neutrophils # (Auto) 2.9 x10^3uL (1.8-7.7) 2.3 x10^3uL (1.8-7.7) Lymphocytes # (Auto) 0.4 x10^3/uL (1.0-4.8) 0.5 x10^3/uL (1.0-4.8) Monocytes # (Auto) 0.2 x10^3/uL (0.0-1.1) 0.2 x10^3/uL (0.0-1.1) Eosinophils # (Auto) 0.1 x10^3/uL (0.0-0.7) 0.2 x10^3/uL (0.0-0.7) Basophils # (Auto) 0.0 x10^3/uL (0.0-0.2) 0.0 x10^3/uL (0.0-0.2) Sodium Level 135 mmol/L (136-145) 132 mmol/L (136-145) Potassium Level 4.2 mmol/L (3.5-5.1) 4.7 mmol/L (3.5-5.1) Chloride Level 99 mmol/L (98-107) 97 mmol/L (98-107) Carbon Dioxide Level 27 mmol/L (21-32) 25 mmol/L (21-32) Anion Gap 9 (6-14) 10 (6-14) Blood Urea Nitrogen 33 mg/dL (8-26) 44 mg/dL (8-26) Creatinine 6.9 mg/dL (0.7-1.3) 8.7 mg/dL (0.7-1.3) Estimated GFR (Cockcroft-Gault) 7.9 6.0 Glucose Level 101 mg/dL (70-99) 102 mg/dL (70-99) Calcium Level 7.9 mg/dL (8.5-10.1) 7.8 mg/dL (8.5-10.1) Phosphorus Level 5.0 mg/dL (2.6-4.7) 7.3 mg/dL (2.6-4.7) Albumin 2.4 g/dL (3.4-5.0) 2.3 g/dL (3.4-5.0) Iron Level 23 ug/dL (65-175) Total Iron Binding Capacity 196 ug/dL (250-450) Iron Saturation 12 % (15-34) Ferritin 1545 ng/mL (26-388) Absolute Reticulocyte Count 0.036 x10^6/uL (0.020-0.120) Percent Reticulocyte Count 1.3 % (0.5-2.3) Immature Reticulocyte Fraction 0.26 (0.20-0.60) Prothrombin Time 14.2 SEC (11.7-14.0) Prothromb Time International Ratio 1.1 (0.8-1.1) Laboratory Tests Test 01/22/19 06:50 White Blood Count 3.2 x10^3/uL (4.0-11.0) Red Blood Count 2.87 x10^6/uL (4.30-5.70) Hemoglobin 8.4 g/dL (13.0-17.5) Hematocrit 25.3 % (39.0-53.0) Mean Corpuscular Volume 90 fL (79-100) Mean Corpuscular Hemoglobin 30 pg (25-35) Mean Corpuscular Hemoglobin Concent 33 g/dL (31-37) Red Cell Distribution Width 17.2 % (11.5-14.5) Platelet Count 56 x10^3/uL (140-400) Neutrophils (%) (Auto) 72 % (31-73) Lymphocytes (%) (Auto) 16 % (24-48) Monocytes (%) (Auto) 6 % (0-9) Eosinophils (%) (Auto) 5 % (0-3) Basophils (%) (Auto) 1 % (0-3) Neutrophils # (Auto) 2.3 x10^3uL (1.8-7.7) Lymphocytes # (Auto) 0.5 x10^3/uL (1.0-4.8) Monocytes # (Auto) 0.2 x10^3/uL (0.0-1.1) Eosinophils # (Auto) 0.2 x10^3/uL (0.0-0.7) Basophils # (Auto) 0.0 x10^3/uL (0.0-0.2) Absolute Reticulocyte Count 0.036 x10^6/uL (0.020-0.120) Percent Reticulocyte Count 1.3 % (0.5-2.3) Immature Reticulocyte Fraction 0.26 (0.20-0.60) Prothrombin Time 14.2 SEC (11.7-14.0) Prothromb Time International Ratio 1.1 (0.8-1.1) Sodium Level 132 mmol/L (136-145) Potassium Level 4.7 mmol/L (3.5-5.1) Chloride Level 97 mmol/L (98-107) Carbon Dioxide Level 25 mmol/L (21-32) Anion Gap 10 (6-14) Blood Urea Nitrogen 44 mg/dL (8-26) Creatinine 8.7 mg/dL (0.7-1.3) Estimated GFR (Cockcroft-Gault) 6.0 Glucose Level 102 mg/dL (70-99) Calcium Level 7.8 mg/dL (8.5-10.1) Phosphorus Level 7.3 mg/dL (2.6-4.7) Albumin 2.3 g/dL (3.4-5.0) Medications Current Medications Sodium Chloride 250 ml @ 250 mls/hr 1X ONCE IV Last administered on 01/18/19at 16:45; Start 01/18/19 at 16:45; Stop 01/18/19 at 17:44; Status DC Acetaminophen (Tylenol) 650 mg PRN Q6HRS PRN PO PAIN; Start 01/19/19 at 00:00 Vitamin B Complex/ Vitamin C (Surekha-Vci) 1 tab DAILY PO Last administered on 01/22/19 11:31; Start 01/19/19 at 09:00 Nortriptyline HCl (Pamelor) 25 mg QHS PO Last administered on 01/21/19at 21:28; Start 01/19/19 at 21:00 Non-Formulary Medication (Flaxseed Oil (Flax Oil)) 1,000 mg DAILY PO ; Start 01/19/19 at 09:00; Status UNV Cetirizine HCl (ZyrTEC) 10 mg PRN Q48HR PRN PO ALLERGIES Last administered on 01/19/19at 08:51; Start 01/19/19 at 00:00 Sertraline HCl (Zoloft) 200 mg DAILY PO Last administered on 01/22/19 11:31; Start 01/19/19 at 09:00 Magnesium Sulfate 50 ml @ 25 mls/hr 1X ONCE IV Last administered on 01/19/19at 00:16; Start 01/19/19 at 00:00; Stop 01/19/19 at 01:59; Status DC Sodium Chloride 1,000 ml @ 1,000 mls/hr Q1H PRN IV hypotension; Start 01/20/19 at 09:07; Stop 01/20/19 at 15:06; Status DC Albumin Human 200 ml @ 200 mls/hr 1X PRN PRN IV Hypotension; Start 01/20/19 at 09:15; Stop 01/20/19 at 15:14; Status DC Sodium Chloride (Normal Saline Flush) 10 ml 1X PRN PRN IV AP catheter pack; Start 01/20/19 at 09:15; Stop 01/21/19 at 09:14; Status DC Sodium Chloride (Normal Saline Flush) 10 ml 1X PRN PRN IV BEHAVIOR THERAPIST catheter pack; Start 01/20/19 at 09:15; Stop 01/21/19 at 09:14; Status DC Sodium Chloride 1,000 ml @ 400 mls/hr Q2H30M PRN IV PATENCY; Start 01/20/19 at 09:07; Stop 01/20/19 at 21:06; Status DC Info (PHARMACY MONITORING -- do not chart) 1 each PRN DAILY PRN MC SEE COMMENTS; Start 01/20/19 at 09:15; Status UNV Info (PHARMACY MONITORING -- do not chart) 1 each PRN DAILY PRN MC SEE COMMENTS; Start 01/20/19 at 09:15 Lidocaine/Sodium Bicarbonate (Buffered Lidocaine 1%) 6 ml 1X ONCE INJ ; Start 01/21/19 at 18:30; Stop 01/21/19 at 18:36; Status DC Heparin Sodium (Porcine) (Heparin Sodium) 2,500 unit 1X ONCE INT CAT ; Start 01/21/19 at 18:30; Stop 01/21/19 at 18:36; Status DC Lidocaine/Sodium Bicarbonate (Buffered Lidocaine 1%) 3 ml STK-MED ONCE .ROUTE ; Start 01/22/19 at 10:21; Stop 01/22/19 at 10:22; Status DC Darbepoetin Segundo (Aranesp) 60 mcg WEEKLYHS SQ ; Start 01/22/19 at 21:00 Midazolam HCl (Versed) 2 mg STK-MED ONCE .ROUTE ; Start 01/22/19 at 10:55; Stop 01/22/19 at 10:56; Status DC Fentanyl Citrate (Fentanyl 2ml Vial) 100 mcg STK-MED ONCE .ROUTE ; Start 01/22/19 at 10:55; Stop 01/22/19 at 10:56; Status DC Lidocaine/Sodium Bicarbonate (Buffered Lidocaine 1%) 3 ml 1X ONCE IJ Last administered on 01/22/19at 11:14; Start 01/22/19 at 11:15; Stop 01/22/19 at 11:16; Status DC Midazolam HCl (Versed) 2 mg 1X ONCE IV Last administered on 01/22/19at 11:15; Start 01/22/19 at 11:15; Stop 01/22/19 at 11:16; Status DC Fentanyl Citrate (Fentanyl 2ml Vial) 100 mcg 1X ONCE IV Last administered on 01/22/19at 11:15; Start 01/22/19 at 11:15; Stop 01/22/19 at 11:16; Status DC Active Scripts Active Reported Calcium Acetate 667 Mg Tablet 3 Tab PO TIDWMEALS Tylenol (Acetaminophen) 325 Mg Tablet 1-2 Tab PO PRN Q6HRS PRN Flax Oil (Flaxseed Oil) 1,000 Mg Capsule 1,000 Mg PO DAILY Sertraline Hcl 100 Mg Tablet 200 Mg PO DAILY Nortriptyline Hcl 25 Mg Capsule 1 Cap PO QHS Renal Vitamin Tablet (Folic Acid/Vit Bcomp,C) 0.8 Mg Tablet 0.8 Mg PO DAILY Loratadine 10 Mg Tablet 1 Tab PO PRN Q48HR Vitals/I & O Vital Sign - Last 24 Hours 01/21/19 01/21/19 01/21/19 01/21/19 14:59 20:00 20:00 23:00 Temp 98.1 98.0 98.7 98.1 98.0 98.7 Pulse 74 72 76 Resp 18 18 18 B/P (MAP) 120/68 (85) 128/73 (91) 116/64 (81) Pulse Ox 98 98 97 O2 Delivery Room Air Room Air Room Air Room Air 01/22/19 01/22/19 01/22/19 01/22/19 03:25 07:30 08:00 10:59 Temp 98.3 97.5 98.3 97.5 Pulse 72 77 76 Resp 18 14 16 B/P (MAP) 116/68 (84) 112/65 (81) Pulse Ox 95 95 97 O2 Delivery Room Air Room Air Room Air Nasal Cannula O2 Flow Rate 2.0 01/22/19 01/22/19 01/22/19 01/22/19 11:06 11:10 11:15 11:16 Pulse 77 82 78 Resp 12 12 17 16 Pulse Ox 97 97 97 97 O2 Delivery Nasal Cannula Nasal Cannula Nasal Cannula Nasal Cannula O2 Flow Rate 2.0 2.0 2.0 2.0 01/22/19 11:30 Pulse 78 Resp 18 B/P (MAP) 107/58 (74) Intake and Output 01/21/19 01/21/19 01/22/19 15:00 23:00 07:00 Intake Total 440 ml 1320 ml 200 ml Output Total 100 ml Balance 440 ml 1220 ml 200 ml CASTLE,NIAL K III DO January 22, 2019 12:12
--- NOTE | 2019-01-22 12:18 | NUR ---
SS following up with discharge planning. Pt is currently requiring oxygen. Pt has been receiving dialysis outpatient on Tuesday, , and Tuesday. PT/OT ordered. SS will await PT/OT evaluations and recommendations and will proceed accordingly.
--- NOTE | 2019-01-22 12:42 | RAD ---
CT-guided bone marrow biopsy. 01/22/2019 12:38 PM Indication: pancytopenia - suspect MDS Discussion: The risks and benefits of the procedure, including but not limited to, bleeding and infection were discussed patient. Informed consent was obtained. The patient was brought to the CT scanner and placed in the prone position. A timeout procedure was performed. [employer] CT imaging of the pelvis demonstrated left ilium amenable to bone marrow biopsy. The overlying soft tissues were prepped and draped using maximum sterile barrier technique. 1% lidocaine without epinephrine was administered for local anesthesia. Under intermittent CT guidance, an OncControl needle was advanced into the bone marrow of the left iliac crest. 2 Aspirates and 1 core biopsy samples were obtained. Samples were delivered to pathology was present at the time of procedure. The needle was removed and manual pressure held to achieve hemostasis. No immediate complications were identified. The procedure was performed under conscious sedation including continuous cardiopulmonary monitoring via dedicated sedation nurse. Sedation time: 20 minutes Impression: Successful CT-guided bone marrow biopsy of the left iliac crest . PQRS Compliance Statement: One or more of the following individualized dose reduction techniques were utilized for this examination: 1. Automated exposure control 2. Adjustment of the mA and/or kV according to patient size 3. Use of iterative reconstruction technique
[2019-01-22] MEDS ORDERED: DARBEPOETIN ALFA 60 MCG/0.3 ML DISP.SYRIN. SQ SCH (21:00)
[2019-01-22] MEDS: NORTRIPTYLINE 25 MG CAPSULE PO SCH (21:32)
[2019-01-23 02:47] VITALS: BP 117/63
[2019-01-23 03:35] LABS: BASO % 1 % (0-3); EOS # 0.2 x10^3/uL (0.0-0.7); EOS % 5 % (0-3); HEMATOCRIT 24.4 % (39.0-53.0); HEMOGLOBIN 8.1 g/dL (13.0-17.5); LYMPH # 0.6 x10^3/uL (1.0-4.8); LYMPH % 17 % (24-48); MEAN CORPUSCULAR HEMOGLOBIN 30 pg (25-35); MEAN CORPUSCULAR HGB CONC 33 g/dL (31-37); MEAN CORPUSCULAR VOLUME 89 fL (79-100); MONO # 0.2 x10^3/uL (0.0-1.1); MONO % 5 % (0-9); NEUT # 2.6 x10^3uL (1.8-7.7); NEUT % 73 % (31-73); PLATELET COUNT 53 x10^3/uL (140-400); RED BLOOD COUNT 2.73 x10^6/uL (4.30-5.70); RED CELL DISTRIBUTION WIDTH 17.2 % (11.5-14.5); WHITE BLOOD COUNT 3.6 x10^3/uL (4.0-11.0)
[2019-01-23 03:49] LABS: ALBUMIN 2.4 g/dL (3.4-5.0); CALCIUM 8.1 mg/dL (8.5-10.1); CREATININE 10.3 mg/dL (0.7-1.3); POTASSIUM 4.8 mmol/L (3.5-5.1)
[2019-01-23 03:57] LABS: PHOSPHORUS 9.2 mg/dL (2.6-4.7)
[2019-01-23 07:00] VITALS: BP 119/71
[2019-01-23] MEDS ORDERED: IV NORMAL SALINE 1000ML BAG 1,000 ML IV PRN ×2 (07:59)
[2019-01-23] MEDS ORDERED: ALBUMIN HUMAN 25% 200 ML IV PRN (08:00)
[2019-01-23] MEDS ORDERED: DIALYSIS PATIENT. MC PRN ×2 (08:00)
[2019-01-23] MEDS ORDERED: diphenhydrAMINE 50 MG/ML VIAL IV PRN ×2 (08:00)
[2019-01-23] MEDS: FOLIC/VIT B COMP W-C (RENAL) TABLET. PO SCH (08:15)
[2019-01-23] MEDS: SERTRALINE 50 MG TABLET. PO SCH (08:15)
--- NOTE | 2019-01-23 09:11 | PDOC ---
PROGRESS NOTES Subjective Subjective HPI - f/u of Normochromic normocytic anemia ROS - no CP Objective Objective Vital Signs Date Time Temp Pulse Resp B/P (MAP) Pulse Ox O2 Delivery O2 Flow Rate FiO2 01/23/19 08:00 Room Air 01/23/19 07:00 97.9 81 14 119/71 (87) 94 97.9 01/22/19 11:16 2.0 Intake and Output 01/23/19 07:00 Intake Total 700 ml Output Total 200 ml Balance 500 ml Intake Oral 700 ml Output Urine Total 200 ml # Bowel Movements 1 Physical Exam Heart: Normal S1, Normal S2 General: Alert, Oriented X3 Lungs: Clear to auscultation Neuro: Normal speech Psych/Mental Status: Mental status NL Assessment Assessment Problems Medical Problems: (1) Renal failure Status: Acute (2) Syncope Status: Acute IMPRESSION AND PLAN: 1. Normochromic normocytic anemia, etiology could be related to end-stage renal disease and he is on hemodialysis. However, he also has associated leukopenia and thrombocytopenia in the absence of any liver disease, requires further evaluation with a bone marrow aspiration and biopsy to evaluate for myelodysplastic syndrome. I discussed in detail with the patient, and he understands and agrees with the plan. Iron studies performed on 01/21/2019 reveals anemia due to chronic disease. Ferritin is 1545, iron 23, TIBC 196 and iron saturation 12%. s/p Bone marrow bx 01/22/19, f/u with me in 2-3 weeks to discuss results. 2. Leukopenia and no history of chronic infections. Continue to monitor. WBC was 2.3 on 01/18/2019. 3. Thrombocytopenia. Platelet count 62 on 01/21/2019. No history of liver disease or cirrhosis. No history of bleeding. 4. Syncope, has not had any recurrent episodes. Management per primary team. 5. End-stage renal disease. He is on hemodialysis. Comment Review of Relevant I have reviewed the following items bhargav (where applicable) has been applied. Labs Laboratory Tests Test 01/22/19 06:50 01/23/19 03:10 White Blood Count 3.2 x10^3/uL (4.0-11.0) 3.6 x10^3/uL (4.0-11.0) Red Blood Count 2.87 x10^6/uL (4.30-5.70) 2.73 x10^6/uL (4.30-5.70) Hemoglobin 8.4 g/dL (13.0-17.5) 8.1 g/dL (13.0-17.5) Hematocrit 25.3 % (39.0-53.0) 24.4 % (39.0-53.0) Mean Corpuscular Volume 90 fL (79-100) 89 fL (79-100) Mean Corpuscular Hemoglobin 30 pg (25-35) 30 pg (25-35) Mean Corpuscular Hemoglobin Concent 33 g/dL (31-37) 33 g/dL (31-37) Red Cell Distribution Width 17.2 % (11.5-14.5) 17.2 % (11.5-14.5) Platelet Count 56 x10^3/uL (140-400) 53 x10^3/uL (140-400) Neutrophils (%) (Auto) 72 % (31-73) 73 % (31-73) Lymphocytes (%) (Auto) 16 % (24-48) 17 % (24-48) Monocytes (%) (Auto) 6 % (0-9) 5 % (0-9) Eosinophils (%) (Auto) 5 % (0-3) 5 % (0-3) Basophils (%) (Auto) 1 % (0-3) 1 % (0-3) Neutrophils # (Auto) 2.3 x10^3uL (1.8-7.7) 2.6 x10^3uL (1.8-7.7) Lymphocytes # (Auto) 0.5 x10^3/uL (1.0-4.8) 0.6 x10^3/uL (1.0-4.8) Monocytes # (Auto) 0.2 x10^3/uL (0.0-1.1) 0.2 x10^3/uL (0.0-1.1) Eosinophils # (Auto) 0.2 x10^3/uL (0.0-0.7) 0.2 x10^3/uL (0.0-0.7) Basophils # (Auto) 0.0 x10^3/uL (0.0-0.2) 0.0 x10^3/uL (0.0-0.2) Absolute Reticulocyte Count 0.036 x10^6/uL (0.020-0.120) Percent Reticulocyte Count 1.3 % (0.5-2.3) Immature Reticulocyte Fraction 0.26 (0.20-0.60) Prothrombin Time 14.2 SEC (11.7-14.0) Prothromb Time International Ratio 1.1 (0.8-1.1) Sodium Level 132 mmol/L (136-145) 132 mmol/L (136-145) Potassium Level 4.7 mmol/L (3.5-5.1) 4.8 mmol/L (3.5-5.1) Chloride Level 97 mmol/L (98-107) 97 mmol/L (98-107) Carbon Dioxide Level 25 mmol/L (21-32) 23 mmol/L (21-32) Anion Gap 10 (6-14) 12 (6-14) Blood Urea Nitrogen 44 mg/dL (8-26) 52 mg/dL (8-26) Creatinine 8.7 mg/dL (0.7-1.3) 10.3 mg/dL (0.7-1.3) Estimated GFR (Cockcroft-Gault) 6.0 5.0 Glucose Level 102 mg/dL (70-99) 94 mg/dL (70-99) Calcium Level 7.8 mg/dL (8.5-10.1) 8.1 mg/dL (8.5-10.1) Phosphorus Level 7.3 mg/dL (2.6-4.7) 9.2 mg/dL (2.6-4.7) Albumin 2.3 g/dL (3.4-5.0) 2.4 g/dL (3.4-5.0) Laboratory Tests Test 01/23/19 03:10 White Blood Count 3.6 x10^3/uL (4.0-11.0) Red Blood Count 2.73 x10^6/uL (4.30-5.70) Hemoglobin 8.1 g/dL (13.0-17.5) Hematocrit 24.4 % (39.0-53.0) Mean Corpuscular Volume 89 fL (79-100) Mean Corpuscular Hemoglobin 30 pg (25-35) Mean Corpuscular Hemoglobin Concent 33 g/dL (31-37) Red Cell Distribution Width 17.2 % (11.5-14.5) Platelet Count 53 x10^3/uL (140-400) Neutrophils (%) (Auto) 73 % (31-73) Lymphocytes (%) (Auto) 17 % (24-48) Monocytes (%) (Auto) 5 % (0-9) Eosinophils (%) (Auto) 5 % (0-3) Basophils (%) (Auto) 1 % (0-3) Neutrophils # (Auto) 2.6 x10^3uL (1.8-7.7) Lymphocytes # (Auto) 0.6 x10^3/uL (1.0-4.8) Monocytes # (Auto) 0.2 x10^3/uL (0.0-1.1) Eosinophils # (Auto) 0.2 x10^3/uL (0.0-0.7) Basophils # (Auto) 0.0 x10^3/uL (0.0-0.2) Sodium Level 132 mmol/L (136-145) Potassium Level 4.8 mmol/L (3.5-5.1) Chloride Level 97 mmol/L (98-107) Carbon Dioxide Level 23 mmol/L (21-32) Anion Gap 12 (6-14) Blood Urea Nitrogen 52 mg/dL (8-26) Creatinine 10.3 mg/dL (0.7-1.3) Estimated GFR (Cockcroft-Gault) 5.0 Glucose Level 94 mg/dL (70-99) Calcium Level 8.1 mg/dL (8.5-10.1) Phosphorus Level 9.2 mg/dL (2.6-4.7) Albumin 2.4 g/dL (3.4-5.0) Medications Current Medications Sodium Chloride 250 ml @ 250 mls/hr 1X ONCE IV Last administered on 01/18/19at 16:45; Start 01/18/19 at 16:45; Stop 01/18/19 at 17:44; Status DC Acetaminophen (Tylenol) 650 mg PRN Q6HRS PRN PO PAIN Last administered on 01/22/19at 17:48; Start 01/19/19 at 00:00 Vitamin B Complex/ Vitamin C (Surekha-Vic) 1 tab DAILY PO Last administered on 01/23/19at 08:15; Start 01/19/19 at 09:00 Nortriptyline HCl (Pamelor) 25 mg QHS PO Last administered on 01/22/19at 21:32; Start 01/19/19 at 21:00 Non-Formulary Medication (Flaxseed Oil (Flax Oil)) 1,000 mg DAILY PO ; Start 01/19/19 at 09:00; Status UNV Cetirizine HCl (ZyrTEC) 10 mg PRN Q48HR PRN PO ALLERGIES Last administered on 01/19/19at 08:51; Start 01/19/19 at 00:00 Sertraline HCl (Zoloft) 200 mg DAILY PO Last administered on 01/23/19at 08:15; Start 01/19/19 at 09:00 Magnesium Sulfate 50 ml @ 25 mls/hr 1X ONCE IV Last administered on 01/19/19at 00:16; Start 01/19/19 at 00:00; Stop 01/19/19 at 01:59; Status DC Sodium Chloride 1,000 ml @ 1,000 mls/hr Q1H PRN IV hypotension; Start 01/20/19 at 09:07; Stop 01/20/19 at 15:06; Status DC Albumin Human 200 ml @ 200 mls/hr 1X PRN PRN IV Hypotension; Start 01/20/19 at 09:15; Stop 01/20/19 at 15:14; Status DC Sodium Chloride (Normal Saline Flush) 10 ml 1X PRN PRN IV AP catheter pack; Start 01/20/19 at 09:15; Stop 01/21/19 at 09:14; Status DC Sodium Chloride (Normal Saline Flush) 10 ml 1X PRN PRN IV [employer] catheter pack; Start 01/20/19 at 09:15; Stop 01/21/19 at 09:14; Status DC Sodium Chloride 1,000 ml @ 400 mls/hr Q2H30M PRN IV PATENCY; Start 01/20/19 at 09:07; Stop 01/20/19 at 21:06; Status DC Info (PHARMACY MONITORING -- do not chart) 1 each PRN DAILY PRN MC SEE COMMENTS; Start 01/20/19 at 09:15; Status UNV Info (PHARMACY MONITORING -- do not chart) 1 each PRN DAILY PRN MC SEE COMMENTS; Start 01/20/19 at 09:15; Stop 01/23/19 at 08:06; Status DC Lidocaine/Sodium Bicarbonate (Buffered Lidocaine 1%) 6 ml 1X ONCE INJ ; Start 01/21/19 at 18:30; Stop 01/21/19 at 18:36; Status DC Heparin Sodium (Porcine) (Heparin Sodium) 2,500 unit 1X ONCE INT CAT ; Start 01/21/19 at 18:30; Stop 01/21/19 at 18:36; Status DC Lidocaine/Sodium Bicarbonate (Buffered Lidocaine 1%) 3 ml STK-MED ONCE .ROUTE ; Start 01/22/19 at 10:21; Stop 01/22/19 at 10:22; Status DC Darbepoetin Segundo (Aranesp) 60 mcg WEEKLYHS SQ Last administered on 01/22/19at 21:31; Start 01/22/19 at 21:00 Midazolam HCl (Versed) 2 mg STK-MED ONCE .ROUTE ; Start 01/22/19 at 10:55; Stop 01/22/19 at 10:56; Status DC Fentanyl Citrate (Fentanyl 2ml Vial) 100 mcg STK-MED ONCE .ROUTE ; Start 01/22/19 at 10:55; Stop 01/22/19 at 10:56; Status DC Lidocaine/Sodium Bicarbonate (Buffered Lidocaine 1%) 3 ml 1X ONCE IJ Last administered on 01/22/19at 11:14; Start 01/22/19 at 11:15; Stop 01/22/19 at 11:16; Status DC Midazolam HCl (Versed) 2 mg 1X ONCE IV Last administered on 01/22/19at 11:15; Start 01/22/19 at 11:15; Stop 01/22/19 at 11:16; Status DC Fentanyl Citrate (Fentanyl 2ml Vial) 100 mcg 1X ONCE IV Last administered on 01/22/19at 11:15; Start 01/22/19 at 11:15; Stop 01/22/19 at 11:16; Status DC Sodium Chloride 1,000 ml @ 1,000 mls/hr Q1H PRN IV hypotension; Start 01/23/19 at 07:59; Stop 01/23/19 at 13:58 Albumin Human 200 ml @ 200 mls/hr 1X PRN PRN IV Hypotension; Start 01/23/19 at 08:00; Stop 01/23/19 at 13:59 Diphenhydramine HCl (Benadryl) 25 mg 1X PRN PRN IV ITCHING; Start 01/23/19 at 08:00; Stop 01/24/19 at 07:59 Diphenhydramine HCl (Benadryl) 25 mg 1X PRN PRN IV ITCHING; Start 01/23/19 at 08:00; Stop 01/24/19 at 07:59 Sodium Chloride 1,000 ml @ 400 mls/hr Q2H30M PRN IV PATENCY; Start 01/23/19 at 07:59; Stop 01/23/19 at 19:58 Info (PHARMACY MONITORING -- do not chart) 1 each PRN DAILY PRN MC SEE COMMENTS; Start 01/23/19 at 08:00 Info (PHARMACY MONITORING -- do not chart) 1 each PRN DAILY PRN MC SEE COMMENTS; Start 01/23/19 at 08:00; Stop 01/23/19 at 08:06; Status DC Active Scripts Active Reported Calcium Acetate 667 Mg Tablet 3 Tab PO TIDWMEALS Tylenol (Acetaminophen) 325 Mg Tablet 1-2 Tab PO PRN Q6HRS PRN Flax Oil (Flaxseed Oil) 1,000 Mg Capsule 1,000 Mg PO DAILY Sertraline Hcl 100 Mg Tablet 200 Mg PO DAILY Nortriptyline Hcl 25 Mg Capsule 1 Cap PO QHS Renal Vitamin Tablet (Folic Acid/Vit Bcomp,C) 0.8 Mg Tablet 0.8 Mg PO DAILY Loratadine 10 Mg Tablet 1 Tab PO PRN Q48HR Vitals/I & O Vital Sign - Last 24 Hours 01/22/19 01/22/19 01/22/19 01/22/19 10:59 11:06 11:10 11:15 Pulse 76 77 82 Resp 16 12 12 17 Pulse Ox 97 97 97 97 O2 Delivery Nasal Cannula Nasal Cannula Nasal Cannula Nasal Cannula O2 Flow Rate 2.0 2.0 2.0 2.0 01/22/19 01/22/19 01/22/19 01/22/19 11:16 11:30 11:45 11:45 Pulse 78 78 72 Resp 16 18 B/P (MAP) 107/58 (74) 106/61 (76) Pulse Ox 97 O2 Delivery Nasal Cannula Room Air O2 Flow Rate 2.0 01/22/19 01/22/19 01/22/19/6/19 12:00 12:15 12:30 13:00 Pulse 74 74 74 84 B/P (MAP) 114/65 (81) 110/65 (80) 114/69 (84) 123/64 (83) 01/22/19 01/22/19 01/22/19 01/22/19 15:20 19:50 20:00 23:00 Temp 97.9 97.6 97.9 97.9 97.6 97.9 Pulse 75 71 75 Resp 14 16 15 B/P (MAP) 107/61 (76) 122/64 (83) 119/60 (79) Pulse Ox 97 96 96 O2 Delivery Room Air Room Air Room Air Room Air 01/23/19 01/23/19 01/23/19 02:47 07:00 08:00 Temp 97.7 97.9 97.7 97.9 Pulse 77 81 Resp 14 14 B/P (MAP) 117/63 (81) 119/71 (87) Pulse Ox 94 94 O2 Delivery Room Air Room Air Room Air Intake and Output 01/22/19 01/22/19 01/23/19 15:00 23:00 07:00 Intake Total 400 ml 300 ml Output Total 100 ml 100 ml Balance 300 ml 200 ml VERÓNICA COBB MD January 23, 2019 09:11
--- NOTE | 2019-01-23 10:13 | PDOC ---
PROGRESS NOTES Assessment Problems Medical Problems: (1) Renal failure Status: Acute (2) Syncope Status: Acute The patient became lightheaded and fainted during dialysis and has a history of fainting and orthostatic hypotension. He does have diabetes and most likely has an autonomic component to his neuropathy. I find no evidence of central nervous system disease such as stroke, seizure, or other intracranial process. * He is had no further episodes here * Diabetic neuropathy with autonomic component * Note normal carotid Doppler studies * He is being worked up for pancytopenia Plan * No need for further neurological studies such as imaging the brain or EEG * Counseled patient to be careful when getting up rapidly from a supine position * Consider midodrine, blood pressure a little high now though * Okay for discharge * Follow-up with neurology as needed. Subjective No complaints, no dizziness Objective Vital Signs Date Time Temp Pulse Resp B/P (MAP) Pulse Ox O2 Delivery O2 Flow Rate FiO2 01/23/19 08:00 Room Air 01/23/19 07:00 97.9 81 14 119/71 (87) 94 97.9 01/22/19 11:16 2.0 Intake and Output 01/23/19 06:59 Intake Total 700 ml Output Total 200 ml Balance 500 ml Intake Oral 700 ml Output Urine Total 200 ml # Bowel Movements 1 PHYSICAL EXAM Alert. Oriented to time, place and person. PERRL. EOMI. CN: no focal findings. Muscle tone: normal. Muscle strength: 5/5 DTR: 1+ Plantar reflex: flexor Gait: not examined in bed. Sensory exam: stocking loss. No cerebellar signs elicited. Review of Relevant I have reviewed the following items bhargav (where applicable) has been applied. Labs Laboratory Tests Test 01/22/19 06:50 01/23/19 03:10 White Blood Count 3.2 x10^3/uL (4.0-11.0) 3.6 x10^3/uL (4.0-11.0) Red Blood Count 2.87 x10^6/uL (4.30-5.70) 2.73 x10^6/uL (4.30-5.70) Hemoglobin 8.4 g/dL (13.0-17.5) 8.1 g/dL (13.0-17.5) Hematocrit 25.3 % (39.0-53.0) 24.4 % (39.0-53.0) Mean Corpuscular Volume 90 fL (79-100) 89 fL (79-100) Mean Corpuscular Hemoglobin 30 pg (25-35) 30 pg (25-35) Mean Corpuscular Hemoglobin Concent 33 g/dL (31-37) 33 g/dL (31-37) Red Cell Distribution Width 17.2 % (11.5-14.5) 17.2 % (11.5-14.5) Platelet Count 56 x10^3/uL (140-400) 53 x10^3/uL (140-400) Neutrophils (%) (Auto) 72 % (31-73) 73 % (31-73) Lymphocytes (%) (Auto) 16 % (24-48) 17 % (24-48) Monocytes (%) (Auto) 6 % (0-9) 5 % (0-9) Eosinophils (%) (Auto) 5 % (0-3) 5 % (0-3) Basophils (%) (Auto) 1 % (0-3) 1 % (0-3) Neutrophils # (Auto) 2.3 x10^3uL (1.8-7.7) 2.6 x10^3uL (1.8-7.7) Lymphocytes # (Auto) 0.5 x10^3/uL (1.0-4.8) 0.6 x10^3/uL (1.0-4.8) Monocytes # (Auto) 0.2 x10^3/uL (0.0-1.1) 0.2 x10^3/uL (0.0-1.1) Eosinophils # (Auto) 0.2 x10^3/uL (0.0-0.7) 0.2 x10^3/uL (0.0-0.7) Basophils # (Auto) 0.0 x10^3/uL (0.0-0.2) 0.0 x10^3/uL (0.0-0.2) Absolute Reticulocyte Count 0.036 x10^6/uL (0.020-0.120) Percent Reticulocyte Count 1.3 % (0.5-2.3) Immature Reticulocyte Fraction 0.26 (0.20-0.60) Prothrombin Time 14.2 SEC (11.7-14.0) Prothromb Time International Ratio 1.1 (0.8-1.1) Sodium Level 132 mmol/L (136-145) 132 mmol/L (136-145) Potassium Level 4.7 mmol/L (3.5-5.1) 4.8 mmol/L (3.5-5.1) Chloride Level 97 mmol/L (98-107) 97 mmol/L (98-107) Carbon Dioxide Level 25 mmol/L (21-32) 23 mmol/L (21-32) Anion Gap 10 (6-14) 12 (6-14) Blood Urea Nitrogen 44 mg/dL (8-26) 52 mg/dL (8-26) Creatinine 8.7 mg/dL (0.7-1.3) 10.3 mg/dL (0.7-1.3) Estimated GFR (Cockcroft-Gault) 6.0 5.0 Glucose Level 102 mg/dL (70-99) 94 mg/dL (70-99) Calcium Level 7.8 mg/dL (8.5-10.1) 8.1 mg/dL (8.5-10.1) Phosphorus Level 7.3 mg/dL (2.6-4.7) 9.2 mg/dL (2.6-4.7) Albumin 2.3 g/dL (3.4-5.0) 2.4 g/dL (3.4-5.0) Hepatitis B Surface Antigen Nonreactive (Nonreactive) Hepatitis B Surface Antibody Reactive Laboratory Tests Test 01/23/19 03:10 White Blood Count 3.6 x10^3/uL (4.0-11.0) Red Blood Count 2.73 x10^6/uL (4.30-5.70) Hemoglobin 8.1 g/dL (13.0-17.5) Hematocrit 24.4 % (39.0-53.0) Mean Corpuscular Volume 89 fL (79-100) Mean Corpuscular Hemoglobin 30 pg (25-35) Mean Corpuscular Hemoglobin Concent 33 g/dL (31-37) Red Cell Distribution Width 17.2 % (11.5-14.5) Platelet Count 53 x10^3/uL (140-400) Neutrophils (%) (Auto) 73 % (31-73) Lymphocytes (%) (Auto) 17 % (24-48) Monocytes (%) (Auto) 5 % (0-9) Eosinophils (%) (Auto) 5 % (0-3) Basophils (%) (Auto) 1 % (0-3) Neutrophils # (Auto) 2.6 x10^3uL (1.8-7.7) Lymphocytes # (Auto) 0.6 x10^3/uL (1.0-4.8) Monocytes # (Auto) 0.2 x10^3/uL (0.0-1.1) Eosinophils # (Auto) 0.2 x10^3/uL (0.0-0.7) Basophils # (Auto) 0.0 x10^3/uL (0.0-0.2) Sodium Level 132 mmol/L (136-145) Potassium Level 4.8 mmol/L (3.5-5.1) Chloride Level 97 mmol/L (98-107) Carbon Dioxide Level 23 mmol/L (21-32) Anion Gap 12 (6-14) Blood Urea Nitrogen 52 mg/dL (8-26) Creatinine 10.3 mg/dL (0.7-1.3) Estimated GFR (Cockcroft-Gault) 5.0 Glucose Level 94 mg/dL (70-99) Calcium Level 8.1 mg/dL (8.5-10.1) Phosphorus Level 9.2 mg/dL (2.6-4.7) Albumin 2.4 g/dL (3.4-5.0) Hepatitis B Surface Antigen Nonreactive (Nonreactive) Hepatitis B Surface Antibody Reactive Medications Current Medications Sodium Chloride 250 ml @ 250 mls/hr 1X ONCE IV Last administered on 01/18/19at 16:45; Start 01/18/19 at 16:45; Stop 01/18/19 at 17:44; Status DC Acetaminophen (Tylenol) 650 mg PRN Q6HRS PRN PO PAIN Last administered on 01/22/19at 17:48; Start 01/19/19 at 00:00 Vitamin B Complex/ Vitamin C (Surekha-Vic) 1 tab DAILY PO Last administered on 01/23/19at 08:15; Start 01/19/19 at 09:00 Nortriptyline HCl (Pamelor) 25 mg QHS PO Last administered on 01/22/19at 21:32; Start 01/19/19 at 21:00 Non-Formulary Medication (Flaxseed Oil (Flax Oil)) 1,000 mg DAILY PO ; Start 01/19/19 at 09:00; Status UNV Cetirizine HCl (ZyrTEC) 10 mg PRN Q48HR PRN PO ALLERGIES Last administered on 01/19/19at 08:51; Start 01/19/19 at 00:00 Sertraline HCl (Zoloft) 200 mg DAILY PO Last administered on 01/23/19at 08:15; Start 01/19/19 at 09:00 Magnesium Sulfate 50 ml @ 25 mls/hr 1X ONCE IV Last administered on 01/19/19at 00:16; Start 01/19/19 at 00:00; Stop 01/19/19 at 01:59; Status DC Sodium Chloride 1,000 ml @ 1,000 mls/hr Q1H PRN IV hypotension; Start 01/20/19 at 09:07; Stop 01/20/19 at 15:06; Status DC Albumin Human 200 ml @ 200 mls/hr 1X PRN PRN IV Hypotension; Start 01/20/19 at 09:15; Stop 01/20/19 at 15:14; Status DC Sodium Chloride (Normal Saline Flush) 10 ml 1X PRN PRN IV AP catheter pack; Start 01/20/19 at 09:15; Stop 01/21/19 at 09:14; Status DC Sodium Chloride (Normal Saline Flush) 10 ml 1X PRN PRN IV [employer] IN[employer] catheter pack; Start 01/20/19 at 09:15; Stop 01/21/19 at 09:14; Status DC Sodium Chloride 1,000 ml @ 400 mls/hr Q2H30M PRN IV PATENCY; Start 01/20/19 at 09:07; Stop 01/20/19 at 21:06; Status DC Info (PHARMACY MONITORING -- do not chart) 1 each PRN DAILY PRN MC SEE COMMENTS; Start 01/20/19 at 09:15; Status UNV Info (PHARMACY MONITORING -- do not chart) 1 each PRN DAILY PRN MC SEE COMMENTS; Start 01/20/19 at 09:15; Stop 01/23/19 at 08:06; Status DC Lidocaine/Sodium Bicarbonate (Buffered Lidocaine 1%) 6 ml 1X ONCE INJ ; Start 01/21/19 at 18:30; Stop 01/21/19 at 18:36; Status DC Heparin Sodium (Porcine) (Heparin Sodium) 2,500 unit 1X ONCE INT CAT ; Start 01/21/19 at 18:30; Stop 01/21/19 at 18:36; Status DC Lidocaine/Sodium Bicarbonate (Buffered Lidocaine 1%) 3 ml STK-MED ONCE .ROUTE ; Start 01/22/19 at 10:21; Stop 01/22/19 at 10:22; Status DC Darbepoetin Segundo (Aranesp) 60 mcg WEEKLYHS SQ Last administered on 01/22/19at 21:31; Start 01/22/19 at 21:00 Midazolam HCl (Versed) 2 mg STK-MED ONCE .ROUTE ; Start 01/22/19 at 10:55; Stop 01/22/19 at 10:56; Status DC Fentanyl Citrate (Fentanyl 2ml Vial) 100 mcg STK-MED ONCE .ROUTE ; Start 01/22/19 at 10:55; Stop 01/22/19 at 10:56; Status DC Lidocaine/Sodium Bicarbonate (Buffered Lidocaine 1%) 3 ml 1X ONCE IJ Last administered on 01/22/19at 11:14; Start 01/22/19 at 11:15; Stop 01/22/19 at 11:16; Status DC Midazolam HCl (Versed) 2 mg 1X ONCE IV Last administered on 01/22/19at 11:15; Start 01/22/19 at 11:15; Stop 01/22/19 at 11:16; Status DC Fentanyl Citrate (Fentanyl 2ml Vial) 100 mcg 1X ONCE IV Last administered on 01/22/19at 11:15; Start 01/22/19 at 11:15; Stop 01/22/19 at 11:16; Status DC Sodium Chloride 1,000 ml @ 1,000 mls/hr Q1H PRN IV hypotension; Start 01/23/19 at 07:59; Stop 01/23/19 at 13:58 Albumin Human 200 ml @ 200 mls/hr 1X PRN PRN IV Hypotension; Start 01/23/19 at 08:00; Stop 01/23/19 at 13:59 Diphenhydramine HCl (Benadryl) 25 mg 1X PRN PRN IV ITCHING; Start 01/23/19 at 08:00; Stop 01/24/19 at 07:59 Diphenhydramine HCl (Benadryl) 25 mg 1X PRN PRN IV ITCHING; Start 01/23/19 at 08:00; Stop 01/24/19 at 07:59 Sodium Chloride 1,000 ml @ 400 mls/hr Q2H30M PRN IV PATENCY; Start 01/23/19 at 07:59; Stop 01/23/19 at 19:58 Info (PHARMACY MONITORING -- do not chart) 1 each PRN DAILY PRN MC SEE COMMENTS; Start 01/23/19 at 08:00 Info (PHARMACY MONITORING -- do not chart) 1 each PRN DAILY PRN MC SEE COMMENTS; Start 01/23/19 at 08:00; Stop 01/23/19 at 08:06; Status DC Active Scripts Active Reported Calcium Acetate 667 Mg Tablet 3 Tab PO TIDWMEALS Tylenol (Acetaminophen) 325 Mg Tablet 1-2 Tab PO PRN Q6HRS PRN Flax Oil (Flaxseed Oil) 1,000 Mg Capsule 1,000 Mg PO DAILY Sertraline Hcl 100 Mg Tablet 200 Mg PO DAILY Nortriptyline Hcl 25 Mg Capsule 1 Cap PO QHS Renal Vitamin Tablet (Folic Acid/Vit Bcomp,C) 0.8 Mg Tablet 0.8 Mg PO DAILY Loratadine 10 Mg Tablet 1 Tab PO PRN Q48HR Vitals/I & O Vital Sign - Last 24 Hours 01/22/19 01/22/19 01/22/19 01/22/19 10:59 11:06 11:10 11:15 Pulse 76 77 82 Resp 16 12 12 17 Pulse Ox 97 97 97 97 O2 Delivery Nasal Cannula Nasal Cannula Nasal Cannula Nasal Cannula O2 Flow Rate 2.0 2.0 2.0 2.0 01/22/19 01/22/19 01/22/19 01/22/19 11:16 11:30 11:45 11:45 Pulse 78 78 72 Resp 16 18 B/P (MAP) 107/58 (74) 106/61 (76) Pulse Ox 97 O2 Delivery Nasal Cannula Room Air O2 Flow Rate 2.0 01/22/19 01/22/19 01/22/19 01/22/19 12:00 12:15 12:30 13:00 Pulse 74 74 74 84 B/P (MAP) 114/65 (81) 110/65 (80) 114/69 (84) 123/64 (83) 01/22/19 01/22/19 01/22/19 01/22/19 15:20 19:50 20:00 23:00 Temp 97.9 97.6 97.9 97.9 97.6 97.9 Pulse 75 71 75 Resp 14 16 15 B/P (MAP) 107/61 (76) 122/64 (83) 119/60 (79) Pulse Ox 97 96 96 O2 Delivery Room Air Room Air Room Air Room Air 01/23/19 01/23/19 01/23/19 02:47 07:00 08:00 Temp 97.7 97.9 97.7 97.9 Pulse 77 81 Resp 14 14 B/P (MAP) 117/63 (81) 119/71 (87) Pulse Ox 94 94 O2 Delivery Room Air Room Air Room Air Intake and Output 01/22/19 01/22/19 01/23/19 14:59 22:59 06:59 Intake Total 400 ml 300 ml Output Total 100 ml 100 ml Balance 300 ml 200 ml COLLINS BOYD MD January 23, 2019 10:13
--- NOTE | 2019-01-23 11:13 | PDOC ---
Renal-Progress Notes Subjective Notes Notes NO NEW COMPLAINTS History of Present Illness Hx of present illness STABLE Vitals Vitals Vital Signs Date Time Temp Pulse Resp B/P (MAP) Pulse Ox O2 Delivery O2 Flow Rate FiO2 01/23/19 08:00 Room Air 01/23/19 07:00 97.9 81 14 119/71 (87) 94 97.9 01/22/19 11:16 2.0 Weight Weight [ ] I.O. Intake and Output Intake and Output 01/23/19 07:00 Intake Total 700 ml Output Total 200 ml Balance 500 ml Intake Oral 700 ml Output Urine Total 200 ml # Bowel Movements 1 Labs Labs Laboratory Tests Test 01/23/19 03:10 White Blood Count 3.6 x10^3/uL (4.0-11.0) Red Blood Count 2.73 x10^6/uL (4.30-5.70) Hemoglobin 8.1 g/dL (13.0-17.5) Hematocrit 24.4 % (39.0-53.0) Mean Corpuscular Volume 89 fL (79-100) Mean Corpuscular Hemoglobin 30 pg (25-35) Mean Corpuscular Hemoglobin Concent 33 g/dL (31-37) Red Cell Distribution Width 17.2 % (11.5-14.5) Platelet Count 53 x10^3/uL (140-400) Neutrophils (%) (Auto) 73 % (31-73) Lymphocytes (%) (Auto) 17 % (24-48) Monocytes (%) (Auto) 5 % (0-9) Eosinophils (%) (Auto) 5 % (0-3) Basophils (%) (Auto) 1 % (0-3) Neutrophils # (Auto) 2.6 x10^3uL (1.8-7.7) Lymphocytes # (Auto) 0.6 x10^3/uL (1.0-4.8) Monocytes # (Auto) 0.2 x10^3/uL (0.0-1.1) Eosinophils # (Auto) 0.2 x10^3/uL (0.0-0.7) Basophils # (Auto) 0.0 x10^3/uL (0.0-0.2) Sodium Level 132 mmol/L (136-145) Potassium Level 4.8 mmol/L (3.5-5.1) Chloride Level 97 mmol/L (98-107) Carbon Dioxide Level 23 mmol/L (21-32) Anion Gap 12 (6-14) Blood Urea Nitrogen 52 mg/dL (8-26) Creatinine 10.3 mg/dL (0.7-1.3) Estimated GFR (Cockcroft-Gault) 5.0 Glucose Level 94 mg/dL (70-99) Calcium Level 8.1 mg/dL (8.5-10.1) Phosphorus Level 9.2 mg/dL (2.6-4.7) Albumin 2.4 g/dL (3.4-5.0) Hepatitis B Surface Antigen Nonreactive (Nonreactive) Hepatitis B Surface Antibody Reactive Review of Systems Constitutional: yes: alert, oriented Ears/Nose/Throat: Yes: no symptom reported Eyes: Yes: no symptom reported Pulmonary: Yes dyspnea Cardiovascular: Yes no symptom reported Gastrointestional: Yes: no symptom reported Genitourinary: Yes: no symptom reported Musculoskeletal: Yes: no symptom reported Skin: Yes no symptom reported Psychiatric/Neurological: Yes: no symptom reported Endocrine: Yes: no symptom reported Physical Exam General Appearance: no apparent distress Skin: warm Respiratory: decreased breath sounds Heart: S1S2 Abdomen: soft, bowel sounds present Genitourinary: bladder flat Extremities: pulses present Neurology: alert, oriented, follow commands Musculoskeletal: Osteoarthritis Assessment Assessment IMP ESRD ANEMIA SYNCOPE PANCYTOPENIA PLAN HEME ONC EVAL NEUROLOGY EVALUATION HD TODAY UF TO DW ODALIS NEAL MD January 23, 2019 11:13
[2019-01-23 12:00] VITALS: BP 112/58
--- NOTE | 2019-01-23 13:04 | SNU/HH DC ---
DISCHARGE WITH HOME HEALTH DISCHARGE INFORMATION: Final Diagnosis: Problems Medical Problems: (1) Renal failure Status: Acute (2) Syncope Status: Acute Condition on Discharge: Stable CODE STATUS: Code Status: Full HOME HEALTH: Face to Face: I certify this patient is under my care and that I, or a nurse practitioner or physician's placement assistant working with me, had a face to face encounter that meets the physician face to face encounter requirements with this patient on []. 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 For: Community Resources Pt Meets Homebound Status: Unsteady balance w/ amb, POST DISCHARGE ORDERS: DIET AFTER DISCHARGE: Cardiac CERTIFICATION STATEMENT: Certification Statement: Certification Statement: Based on the above finding, I certify that this patient is confined to the home and needs intermittent care home care, physical therapy and/or speech therapy, or continues to need occupational therapy.~ This patient is under my care, and I have initiated the establishment of the plan of care.~ This patient will be followed by myself or a community physician who will periodically review the plan of care. Home Meds Reported Medications Calcium Acetate (CALCIUM ACETATE) 667 Mg Tablet, 3 TAB PO TIDWMEALS for DIALYSIS PATIENTS, CAP 01/21/19 Acetaminophen (TYLENOL) 325 Mg Tablet, 1-2 TAB PO PRN Q6HRS PRN for PAIN, #60 TAB 2 Refills 01/18/19 Flaxseed Oil (FLAX OIL) 1,000 Mg Capsule, 1000 MG PO DAILY for , CAP 01/18/19 Sertraline Hcl (SERTRALINE HCL) 100 Mg Tablet, 200 MG PO DAILY for ANTI- DEPRESSANT, TAB 0 Refills 01/18/19 Nortriptyline Hcl (NORTRIPTYLINE HCL) 25 Mg Capsule, 1 CAP PO QHS for , #30 CAP 3 Refills 01/18/19 Folic Acid/Vit Bcomp,C (Renal Vitamin Tablet) 0.8 Mg Tablet, 0.8 MG PO DAILY for , TAB 01/18/19 Loratadine (LORATADINE) 10 Mg Tablet, 1 TAB PO PRN Q48HR for , #30 TAB 5 Refills 01/18/19 GM FAUSTIN III DO January 23, 2019 13:04
--- NOTE | 2019-01-23 13:10 | PDOC3 ---
[facility]-Discharge Summary Date of Admission: Date of Admission: January 18, 2019 Date of Discharge: Date of Discharge: January 23, 2019 Admission Diagnosis: Admitting Diagnosis: Syncope Pancytopenia ESRD Discharge Diagnosis: Discharge Diagnosis: Resolving syncope Pancytopenia suspect possible myelodysplastic syndrome (we did a bone marrow biopsy today results are pending) ESRD Consults: Consults: Nephrology and hematology Procedures: Procedures: Hemodialysis and Mini biopsies Hospital Course: Hospital Course: Patient is a elderly male who presented with a syncopal episode while on dialysis He was noted to be quite anemic and in fact pancytopenic We consultation Hemoccult and he was taken for a bone marrow biopsy today We also consult nephrology and we continued his dialysis and transfusing This morning I saw and examined the patient he is doing well once to go home His heart tones were normal his lungs were clear abdomen was soft extremities trace krista We plan to discharge to home with home health Disposition: Disposition/Orders: D/C to Home w/ HH Activity: Activity: Resume previous activity Diet: Diet: Renal Medications: Home Meds Reported Medications Calcium Acetate (CALCIUM ACETATE) 667 Mg Tablet, 3 TAB PO TIDWMEALS for DIALYSIS PATIENTS, CAP 01/21/19 Acetaminophen (TYLENOL) 325 Mg Tablet, 1-2 TAB PO PRN Q6HRS PRN for PAIN, #60 TAB 2 Refills 01/18/19 Flaxseed Oil (FLAX OIL) 1,000 Mg Capsule, 1000 MG PO DAILY for , CAP 01/18/19 Sertraline Hcl (SERTRALINE HCL) 100 Mg Tablet, 200 MG PO DAILY for ANTI- DEPRESSANT, TAB 0 Refills 01/18/19 Nortriptyline Hcl (NORTRIPTYLINE HCL) 25 Mg Capsule, 1 CAP PO QHS for , #30 CAP 3 Refills 01/18/19 Folic Acid/Vit Bcomp,C (Renal Vitamin Tablet) 0.8 Mg Tablet, 0.8 MG PO DAILY for , TAB 01/18/19 Loratadine (LORATADINE) 10 Mg Tablet, 1 TAB PO PRN Q48HR for , #30 TAB 5 Refills 01/18/19 Scheduled Calcium Acetate (Calcium Acetate), 3 TAB PO TIDWMEALS, (Reported) Flaxseed Oil (Flax Oil), 1,000 MG PO DAILY, (Reported) Folic Acid/Vit Bcomp,C (Renal Vitamin Tablet), 0.8 MG PO DAILY, (Reported) Loratadine (Loratadine), 1 TAB PO PRN Q48HR, (Reported) Nortriptyline Hcl (Nortriptyline Hcl), 1 CAP PO QHS, (Reported) Sertraline Hcl (Sertraline Hcl), 200 MG PO DAILY, (Reported) Scheduled PRN Acetaminophen (Tylenol), 1-2 TAB PO PRN Q6HRS PRN for PAIN, (Reported) Total Time: Total Time: 35 minutes GM FAUSTIN III DO January 23, 2019 13:10
--- NOTE | 2019-01-23 14:02 | NUR ---
SS following up with discharge planning. Discharge orders received for home healthcare. SS met with pt to discuss home healthcare options. [facility] reported [facility] and does not plan to be homebound. Pt declined home healthcare at this time. Pt's RN notified.
[2019-01-23 15:00] VITALS: BP 107/62
--- NOTE | 2019-01-23 15:05 | NUR ---
Discharge Note: MICHAEL HARTLEY Discharge instructions and discharge home medications reviewed with Patient and a copy given. All questions have been answered and understanding verbalized.
[2019-01-25 13:49] LABS: HEMOGLOBIN 9.4 g/dL (13.0-17.5)
--- NOTE | 2019-01-31 15:06 | PATHOLOGY ---
[facility] Accession Number: [id number] . 01 Material submitted: . PART A: bone - BONE MARROW BIOPSY PART B: bone - BONE MARROW CLOT PART C: bone - BONE MARROW ASPIRATE SLIDES PART D: bone - PERIPHERAL BLOOD SMEAR PART E: bone - BONE MARROW FLOW . 01 Clinical history: . Pancytopenia . 02 Diagnosis: Peripheral smear: - Mild leukopenia. - Normocytic normochromic anemia, moderate, status post transfusion. - Thrombocytopenia, moderate. . Bone marrow, aspirate smears, clot sections, and core biopsy: - Moderately hypercellular marrow showing trilineage hematopoiesis, no significant dyspoiesis, decreased megakaryocytes, and marked plasmacytosis comprised of abnormal plasma cells showing kappa light chain restriction compatible with a plasma cell neoplasm. See comment. - Reactive histiocytic proliferation with focal erythrophagocytosis. - Increased iron stores. LBQ/01/31/2019 . 02 Comment: The peripheral smear shows mild leukopenia, moderate normocytic normochromic anemia, and moderate thrombocytopenia. The bone marrow is moderately hypercellular and shows trilineage hematopoiesis, no significant dyspoiesis, decreased megakaryocytes, and a marked plasmacytosis comprised of abnormal plasma cells showing immunophenotypic evidence of kappa light chain restriction. Plasma cells comprise approximately 60-70% of nucleated marrow cells. The findings are compatible with a plasma cell neoplasm. There does appear to be some evidence of end-organ damage. As such, the findings are compatible with plasma cell myeloma. The abnormal plasma cells in this case which have a vacuolated cytoplasm can be seen with nonsecretory myeloma. Please correlate with other clinical, laboratory, and radiographic findings. The marrow also shows a reactive histiocytic proliferation in which focal erythrophagocytosis is noted. (JPM/db; 01/30/2019) . 02 Electronically signed: . Kevin Thomas MD, Pathologist NPI- [id number] . 01 Gross description: . A. The specimen is received in formalin, labeled "Jose Antonio Liu BM BX". Received is a single needle core of light porras bone measuring 2.3 cm in length by 0.3 cm in diameter. The specimen is submitted entirely in cassette A1, following light decalcification. . B. The specimen is received in formalin, labeled "Jose Antonio Liu, BM aspirate clot". Received is blood coagulum measuring 3.8 x 3.0 x 0.3 cm in aggregate dimensions. The specimen is filtered and entirely submitted in cassette B1 through B3. (CAA; 01/22/2019) QAC/QAC . 02 Microscopic: . Laboratory Data: The CBC results are dated 01/22/19. The WBC count is 3.2 K/CMM, and the automated WBC differential reveals 72% neutrophils, 16% lymphs, 6% monos, 5% eos, and 1% baso. The RBC count is 2.82 M/CMM, hemoglobin 8.4 G/DL, hematocrit 25.3%, MCV 90 FL, MCH 30 PG, MCHC 33 G/DL, and the RDW is 17.2%. The platelet count is 56 K/CMM. The reticulocyte count is 1.3%. The hemoglobin level on 01/20/19 was 6.8 G/DL. The patient subsequently received two units of packed red blood cells. The BUN is 44 MG/DL, and creatinine 8.7 MG/DL. The serum iron is 23 UG/DL, TIBC 196 UG/DL, saturation 12%, and serum ferritin is 1,545 NG/ML. On admission, the total protein was 5.5 G/DL, albumin 2.8 G/DL, and globulin 2.7 G/DL. . Peripheral Smear: The WBC count is mildly decreased. The WBC differential reveals a predominance of segmented neutrophils, with a smaller population of lymphocytes and with several monocytes and eosinophils noted. Neutrophils do not show dysplastic changes. There is no significant neutrophilic left shift. There are no circulating blasts. There is no leukoerythroblastic reaction. The lymphocyte population consists predominantly of small lymphocytes. There are no circulating plasma cells. Red blood cells predominantly appear normochromic and normocytic. Red blood cells show mild anisocytosis. Red blood cells show mild poikilocytosis comprised of ovalocytes and occasional teardrop red blood cells. There is no evidence of red blood cell rouleaux. Platelets are moderately decreased and appear normal in morphology with an occasional large platelet noted. . Aspirate Smears: Two Prabhakar's-stained and one iron-stained aspirate smears are examined. The smears contain multiple marrow particles which appear hypercellular. There are areas of marked plasmacytosis showing approximately 50-60% plasma cells. Other areas show a smaller proportion of plasma cells. The plasma cells are abnormal. These plasma cells have fairly abundant amounts of basophilic, finely vacuolated cytoplasm, and possess enlarged, rounded to ovoid nuclei containing small nucleoli. Erythroid maturation appears normoblastic. There are no megaloblastic or overt dysplastic changes. Granulopoiesis qualitatively appears normal. There is no significant left shift or dysplastic changes. There is no increase of blasts. Megakaryocytes are present and are of variable ploidy, but overall appear decreased. There are increased histiocytes scattered throughout the smear which show evidence of phagocytosis including focal presence of ingested erythrocytes. Lymphocytes are not increased. There are no cells foreign to the marrow. The iron stain contains a few marrow particles which show essentially absent iron stores. . Bone Marrow Biopsy and Clot Sections: Sections of the bone marrow biopsy reveal a segment of bone marrow which is on the order of 70-80% cellular. The clot sections contain numerous marrow particles which are also on the order of 70-80% cellular. There is a generalized increase of plasma cells. The plasma cells are abnormal. The plasma cells have fairly abundant amounts of pale basophilic to eosinophilic granular cytoplasm, and possess enlarged, rounded to ovoid nuclei containing inconspicuous nucleoli. Some of the plasma cells show intranuclear inclusions. There are intimately admixed erythroid and granulocytic precursors, which are present in varying stages of maturation. There are also intimately admixed histiocytes which appear mildly increased and possess abundant amounts of coarsely granular cytoplasm and sometimes appear to contain ingested erythrocytes. Megakaryocytes are present but appear decreased and are of variable ploidy. There are scattered admixed eosinophils. There are no abnormal lymphoid aggregates, granulomas, or cells foreign to the marrow. To confirm flow cytometric findings and characterize the target cells in a tissue architectural context, immunoperoxidase stains for CD138 and CD68 and in situ hybridization for kappa and lambda light chain are obtained and yield the following results: . CD138 (A1) - Plasma cells positive and diffusely present throughout marrow; plasma cells comprise approximately 60-70% of nucleated marrow cells. . CD68 (A1) - Histiocytes and granulocytes positive confirming increased histiocytes . [place] and lambda [place]ILEO (A1) - Plasma cells show kappa light chain restriction . CD138 (B1) - Plasma cells positive and diffusely present throughout marrow; plasma cells comprise approximately 60-70% of nucleated marrow cells. . CD68 (B1) - Histiocytes and granulocytes positive confirming increased histiocytes . [place] and lambda [place] (B1) - Plasma cells show kappa light chain restriction . CD138 (B2) - Plasma cells positive and diffusely present throughout marrow. . CD138 (B3) - Plasma cells positive and diffusely present throughout marrow. . A reticulin stain obtained on the bone marrow biopsy shows a focal mild increase of reticulin fibers with no significant reticulin fibrosis noted. Iron stains obtained on clot sections B1, B2, and B3 show increased reticuloendothelial iron stores. (JPM/db; 01/30/2019) . Special Studies: Bone marrow submitted for flow cytometry has a viability of 89.8%. Granulocytes comprise 79.0% of total cells and show phenotypic evidence of maturation. Monocytes comprise 3.3% of total cells and coexpress CD14 and CD64. CD45 dim, CD34 positive blasts comprise 1.3% of total cells. Lymphocytes comprise 5.4% of total cells. T-cells comprise 86% of lymphoid cells and show a decreased CD4/CD8 ratio of 0.3. NK-cells comprise 17% of lymphoid cells. Mature B-cells comprise 1% of lymphoid cells and are polyclonal with a kappa:lambda ratio of 2.3. A monoclonal plasma cell population showing kappa light chain restriction comprises 6.9% of total cells. These plasma cells are positive for CD19 (partial), CD38, CD56, and CD138, and are negative for CD20, CD45, and CD117. (JPM:donita/pit; 01/25/2019 . Bone marrow submitted for cytogenetic analysis reveals a normal male karyotype in all cells analyzed. (JPM/db; 01/30/2019) . 02 Pathologist provided ICD-10: D72.819, D69.6, D64.9, D72.822, D75.89, D47.Z9 . 02 CPT . 750781, 217667, 732789, 606951, 965093, 998261, 211254, 847225, 156258, [id number], [id number], F99143, [id number] Specimen Comment: A courtesy copy of this report has been sent to Specimen Comment: [phone], , , . Specimen Comment: Report sent to ,DR LYLE,DR FAUSTIN / DR CHADWICK Performed at: 01 [facility] [address] [facility] [address], [place] [id number] MD Barney Rothman MD Phone: [phone] Performed at: 02 [facility] [address], [place] [id number] MD Kevin Thomas MD Phone: [phone]
== END 2019-01-23 17:00 | disposition home health service (06) | DRG 811 ==
LOC: ER 15:57 → 2 NORTH 18:20 → 2 SOUTH 01-23 09:58
PROVIDERS: ADMIT Internal Medicine; ATTEND Internal Medicine
PROC: 5A1D70Z Performance of Urinary Filtration, Intermittent, Less than 6 Hours Per Day (ICD-10-PCS; principal; 2019-01-18)
PROC: 07DR3ZX Extraction of Iliac Bone Marrow, Percutaneous Approach, Diagnostic (ICD-10-PCS; 2019-01-18)
PROC: 30233N1 Transfusion of Nonautologous Red Blood Cells into Peripheral Vein, Percutaneous Approach (ICD-10-PCS; 2019-01-18)
PROC: 5A1D70Z Performance of Urinary Filtration, Intermittent, Less than 6 Hours Per Day (ICD-10-PCS; 2019-01-19)
PROC: 5A1D70Z Performance of Urinary Filtration, Intermittent, Less than 6 Hours Per Day (ICD-10-PCS; 2019-01-20)
PROC: 5A1D70Z Performance of Urinary Filtration, Intermittent, Less than 6 Hours Per Day (ICD-10-PCS; 2019-01-22)
PROC: 5A1D70Z Performance of Urinary Filtration, Intermittent, Less than 6 Hours Per Day (ICD-10-PCS; 2019-01-23)
DX: T80.89XA Other complications following infusion, transfusion and therapeutic injection, initial encounter (principal); J18.9 Pneumonia, unspecified organism; N18.6 End stage renal disease; D61.818 Other pancytopenia; I12.0 Hypertensive chronic kidney disease with stage 5 chronic kidney disease or end stage renal disease; E11.40 Type 2 diabetes mellitus with diabetic neuropathy, unspecified; E11.22 Type 2 diabetes mellitus with diabetic chronic kidney disease; D63.8 Anemia in other chronic diseases classified elsewhere; I25.10 Atherosclerotic heart disease of native coronary artery without angina pectoris; Y95 Nosocomial condition; F32.9 Major depressive disorder, single episode, unspecified; F41.9 Anxiety disorder, unspecified; M19.90 Unspecified osteoarthritis, unspecified site; Z88.6 Allergy status to analgesic agent; Z91.013 Allergy to seafood; Z88.8 Allergy status to other drugs, medicaments and biological substances; Z91.018 Allergy to other foods; Z99.2 Dependence on renal dialysis; Z83.3 Family history of diabetes mellitus; Z98.49 Cataract extraction status, unspecified eye; Z82.49 Family history of ischemic heart disease and other diseases of the circulatory system; Z80.9 Family history of malignant neoplasm, unspecified; D46.9 Myelodysplastic syndrome, unspecified
CPT/HCPCS: 36415; 38222; 71045; 77012; 80053; 80061; 80069; 82553; 82607; 82728; 82962; 83540; 83550; 83735; 84443; 84484; 85007; 85014; 85018; 85025; 85045; 85610; 86706; 86850; 86900; 86901; 86920; 87340; 88184; 88185; 88237; 88305; 88311; 88313; 88341; 88342; 88364; 88365; 93005; 93306; 93880; 96360; 99152; J0881; J2250; J3010; J3475; J7050; P9016; 97116; 99285-25; J7030

== ENCOUNTER → 2019-02-07 | Outpatient (CLI) | payer OTHER ==
[2019-01-23 15:00] VITALS: BP 107/62
[~2019-02-07] MED LIST: ACET325T9 PO; CALC667T4 PO; FLAX10003 PO; FOLI0.8T30 PO; LORA10TA3 PO; NORT25CA PO; SERT100T8 PO
--- NOTE | 2019-02-07 12:24 | RAD ---
Metastatic skeletal survey, 02/07/2019: HISTORY: Multiple myeloma Multiple images of the bony skeleton were obtained of the following findings delineated: 1. A PA chest radiograph demonstrates absence of the posterior aspect of the left fifth rib, presumably on a postsurgical basis. There are surgical sutures projected over this region. No other bony abnormality is detected. 2. A lateral view of the skull demonstrates patchy bony demineralization. No discrete lytic lesion is seen. The patient is edentulous. 3. AP and lateral views of the cervical spine demonstrate mild scattered degenerative changes. No destructive bony lesion is seen. 4. AP and lateral views of the thoracic spine demonstrate moderate scattered spurs. No fracture or destructive bony lesion is seen. 5. AP and lateral views of the lumbar spine reveal a mild anterolisthesis at L4-5 due to moderate facet joint arthropathy. There are scattered marginal spurs, greatest at L5-S1. No fracture or destructive bony lesion is seen. 6. AP views of both humeri and forearms demonstrate mild patchy bony demineralization. No discrete lytic lesion is seen. Surgical clips are present in the distal left forearm. 7. An AP view of the pelvis reveals no lytic lesion. There are mild degenerative changes at the hip joints. 8. AP views of both femurs and lower legs reveal no lytic bone lesions. Moderate arterial calcifications are present. IMPRESSION: 1. Patchy bony demineralization. 2. Moderate scattered degenerative changes in the spine. 3. No discrete lytic bone lesion or pathologic fracture is identified. Electronically signed by: Marco Cortez MD (02/07/2019 12:21 PM) [facility]
== END | disposition home or self-care (01) ==
LOC: RAD 10:43
PROVIDERS: ATTEND Internal Medicine Hematology & Oncology
DX: C90.00 Multiple myeloma not having achieved remission (principal); M47.812 Spondylosis without myelopathy or radiculopathy, cervical region; M43.16 Spondylolisthesis, lumbar region; M46.09 Spinal enthesopathy, multiple sites in spine; M16.0 Bilateral primary osteoarthritis of hip; I70.90 Unspecified atherosclerosis
CPT/HCPCS: 77075

== ENCOUNTER 2019-06-17 22:51 | Inpatient (IN) | payer OTHER ==
[~2019-06-17] VITALS: Ht 172.7 cm; Wt 76.4 kg
[2019-06-17] MEDS ORDERED: ONDANSETRON PF 4 MG/2 ML VIAL. IVP ONE (23:30)
[2019-06-17] MEDS ORDERED: IV NORMAL SALINE 1000ML BAG 1,000 ML IV ONE (23:30)
[2019-06-17] MEDS ORDERED: fentaNYL PF VIAL 100 MCG/2 ML VIAL IV ONE (23:30)
[2019-06-17 23:53] LABS: BASO % 1 % (0-3); EOS # 0.1 x10^3/uL (0.0-0.7); EOS % 3 % (0-3); HEMATOCRIT 22.2 % (39.0-53.0); HEMOGLOBIN 7.5 g/dL (13.0-17.5); LYMPH # 0.3 x10^3/uL (1.0-4.8); LYMPH % 11 % (24-48); MEAN CORPUSCULAR HEMOGLOBIN 30 pg (25-35); MEAN CORPUSCULAR HGB CONC 34 g/dL (31-37); MEAN CORPUSCULAR VOLUME 90 fL (79-100); MONO # 0.1 x10^3/uL (0.0-1.1); MONO % 5 % (0-9); NEUT # 2.1 x10^3/uL (1.8-7.7); NEUT % 80 % (31-73); PLATELET COUNT 85 x10^3/uL (140-400); RED BLOOD COUNT 2.48 x10^6/uL (4.30-5.70); RED CELL DISTRIBUTION WIDTH 19.8 % (11.5-14.5); WHITE BLOOD COUNT 2.6 x10^3/uL (4.0-11.0)
[2019-06-17 23:58] LABS: CALCIUM 8.4 mg/dL (8.5-10.1); CREATININE 5.4 mg/dL (0.7-1.3); GFR 10.4; POTASSIUM 5.2 mmol/L (3.5-5.1)
[2019-06-18 00:05] LABS: ALBUMIN 2.1 g/dL (3.4-5.0); ALBUMIN/GLOBULIN RATIO 0.6 (1.0-1.7); TOTAL BILIRUBIN 0.6 mg/dL (0.2-1.0); TOTAL PROTEIN 5.6 g/dL (6.4-8.2)
--- NOTE | 2019-06-18 00:26 | PHYS DOC ---
Past Medical History Past Medical History: Anxiety, Cancer, Diabetes-Type II, Hypertension, Renal Disease, Renal Failure Additional Past Medical Histor: Dailysis, PANCREATIC AND LIVER CA, DIALYSIS Past Surgical History: Cholecystectomy Additional Past Surgical Histo: DIALYSIS FISTULA LEFT ARM Alcohol Use: None Drug Use: None Adult General Chief Complaint Chief Complaint: ABDOMINAL PAIN HPI HPI Patient is a 74 year old male with history of pancreatic and liver cancer curr ently enrolled in hospice who presents with abdominal distention, poorly controlled abdominal pain for pain control. Pain is diffuse moderate to severe and worse with palpation. On exam, patient is somnolent, cachectic, with grossly distended abdomen with increased bowel sounds. He reports progressive generalized abdominal pain with vomiting which has been long-standing. He denies hematemesis coffee-ground emesis. He is able to answer basic questions and requests DNR status to be honored. Patient was diagnosed against metastatic pancreatic cancer in January 2019 received 2 courses of chemotherapy at [facility] that he did not. He is not received any chemotherapy and a number of weeks or months and is on understanding that his disease is terminal. He dialyzes Tuesdays, and Saturdays.[] Review of Systems Review of Systems ROS as per HPI All other systems were reviewed and found to be within normal limits, except as documented in this note. Current Medications Current Medications Current Medications Medications (Trade) Dose Ordered Sig/David Start Time Stop Time Status Last Admin Dose Admin Fentanyl Citrate (Fentanyl 2ml Vial) 75 mcg 1X ONCE 06/17/19 23:30 06/17/19 23:31 DC 06/17/19 23:57 75 MCG Ondansetron HCl (Zofran) 4 mg 1X ONCE 06/17/19 23:30 06/17/19 23:31 DC 06/17/19 23:56 4 MG Sodium Chloride 1,000 ml @ 1,000 mls/hr 1X ONCE 06/17/19 23:30 06/18/19 00:29 DC 06/17/19 23:30 1,000 MLS/HR Allergies Allergies Allergies Coded Allergies Type Severity Reaction Last Updated Verified aspirin Allergy Intermediate 01/21/19 Yes fish derived Allergy Intermediate 01/21/19 Yes ibuprofen Allergy Intermediate 01/21/19 Yes naproxen Allergy Intermediate 01/21/19 Yes niacin Allergy Intermediate 01/21/19 Yes nut - unspecified Allergy Intermediate 5/5/19 Yes Physical Exam Physical Exam Constitutional: Cachectic, and I, pale, chronically ill-appearing. [] HENT: Normocephalic, atraumatic, bilateral external ears normal, oropharynx moist, no oral exudates, nose normal. [] Eyes: PERRLA, EOMI, conjunctiva normal. [] Neck: Normal range of motion, no tenderness. [] Cardiovascular:Heart rate regular rhythm, no murmur [] Lungs & Thorax: Bilateral breath sounds clear to auscultation [] Abdomen: Grossly distended,modely tender with increased bowel sounds. [] Skin: Warm, dry. [] Back: No tenderness. [] Extremities: No tenderness. [] Neurologic: Somnolent, normal motor function, normal sensory function, no focal deficits noted. [] Psychologic: Affect normal, judgement normal, mood normal. [] Current Patient Data Vital Signs Vital Signs Date Time Temp Pulse Resp B/P (MAP) Pulse Ox O2 Delivery O2 Flow Rate FiO2 06/17/19 23:57 22 97 Room Air 06/17/19 22:51 97.8 93 118/65 (82) 97.8 Lab Values Laboratory Tests Test 06/17/19 23:30 White Blood Count 2.6 x10^3/uL (4.0-11.0) L Red Blood Count 2.48 x10^6/uL (4.30-5.70) L Hemoglobin 7.5 g/dL (13.0-17.5) L Hematocrit 22.2 % (39.0-53.0) L Mean Corpuscular Volume 90 fL (79-100) Mean Corpuscular Hemoglobin 30 pg (25-35) Mean Corpuscular Hemoglobin Concent 34 g/dL (31-37) Red Cell Distribution Width 19.8 % (11.5-14.5) H Platelet Count 85 x10^3/uL (140-400) L Neutrophils (%) (Auto) 80 % (31-73) H Lymphocytes (%) (Auto) 11 % (24-48) L Monocytes (%) (Auto) 5 % (0-9) Eosinophils (%) (Auto) 3 % (0-3) Basophils (%) (Auto) 1 % (0-3) Neutrophils # (Auto) 2.1 x10^3/uL (1.8-7.7) Lymphocytes # (Auto) 0.3 x10^3/uL (1.0-4.8) L Monocytes # (Auto) 0.1 x10^3/uL (0.0-1.1) Eosinophils # (Auto) 0.1 x10^3/uL (0.0-0.7) Basophils # (Auto) 0.0 x10^3/uL (0.0-0.2) Platelet Estimate Pending Sodium Level 133 mmol/L (136-145) L Potassium Level 5.2 mmol/L (3.5-5.1) H Chloride Level 96 mmol/L (98-107) L Carbon Dioxide Level 29 mmol/L (21-32) Anion Gap 8 (6-14) Blood Urea Nitrogen 40 mg/dL (8-26) H Creatinine 5.4 mg/dL (0.7-1.3) H Estimated GFR (Cockcroft-Gault) 10.4 BUN/Creatinine Ratio 7 (6-20) Glucose Level 356 mg/dL (70-99) H Calcium Level 8.4 mg/dL (8.5-10.1) L Total Bilirubin 0.6 mg/dL (0.2-1.0) Aspartate Amino Transferase (AST) 27 U/L (15-37) Alanine Aminotransferase (ALT) 14 U/L (16-63) L Alkaline Phosphatase 108 U/L (46-116) Ammonia 15 mcmol/L (11-34) Troponin I Quantitative < 0.017 ng/mL (0.000-0.055) Total Protein 5.6 g/dL (6.4-8.2) L Albumin 2.1 g/dL (3.4-5.0) L Albumin/Globulin Ratio 0.6 (1.0-1.7) L Lipase 68 U/L (73-393) L Laboratory Tests 06/17/19 23:30 Laboratory Tests 06/17/19 23:30 EKG EKG [EKG: reviewed ] Radiology/Procedures Radiology/Procedures [CT abdomen and pelvis: Radiology results reviewed] Course & Med Decision Making Course & Med Decision Making Pertinent Labs and Imaging studies reviewed. (See chart for details) [CT findings of advanced pancreatic cancer with poorly controlled pain and vomiting in the emergency department. No evidence of obstruction. Repeat pain nausea medication given with improvement. Will admit patient for continued palliative care treatment until care can be adequately transitioned back to [facility]. ] Dragon Disclaimer Dragon Disclaimer This electronic medical record was generated, in whole or in part, using a voice recognition dictation system. Departure Departure Impression: Primary Impression: Abdominal pain Additional Impressions: Pancreatic cancer Nausea & vomiting Disposition: ADMITTED INPATIENT Condition: GUARDED Referrals: JEANNETTE SOLER APRN (PCP) Problem Qualifiers NARDA PEREZ DO Jun 18, 2019 00:26
[2019-06-18] MEDS ORDERED: MORPHINE SULFATE 4 MG/ML VIAL. IV ONE (01:15)
[2019-06-18] MEDS ORDERED: PROCHLORPERAZINE 10 MG/2 ML VIAL. IV ONE (01:15)
--- NOTE | 2019-06-18 01:55 | RAD ---
EXAM: CT ABDOMEN/PELVIS WITHOUT CONTRAST. HISTORY: Abdominal pain. Multiple myeloma. TECHNIQUE: Computed tomography of the abdomen and pelvis was performed without intravenous contrast. COMPARISON: None. FINDINGS: Lung windows through the visualized portions of the bases reveal calcifications of the coronary arteries and mitral valve annulus. There is a moderate hiatal hernia. Calcified mediastinal lymph nodes are likely secondary to old granulomatous disease. There are small bilateral pleural effusions. Pleural calcifications on the left are consistent with prior asbestos exposure or chronic inflammation. There is atelectasis or infiltrate in the left greater than right lower lobes. Bone windows reveal a mild compression deformity at T11 appears acute. Sclerosis of this vertebral body suggests an underlying lesion. A dense sclerotic focus at T9 may be a bone island. The spleen is moderately enlarged at 17.3 cm. There is a large amount of ascites. Ascites extends into a small right inguinal hernia. Mild diffuse small bowel wall thickening may reflect portal hypertension. There is no clear hepatic surface nodularity. Periportal edema is noted. Calcifications along the hepatic surface may reflect old granulomatous disease versus calcified peritoneal implants. A lesion at the junction of the pancreatic head and body measures 2.6 x 2.0 cm and fluid density at 7 Hounsfield units. This may be a pancreatic cystic neoplasm but is incompletely characterized without contrast. The gallbladder is surgically absent. There is no biliary dilatation. Both kidneys are moderately atrophic. A right renal cyst measures 5.0 cm. There is some calcification focally along its periphery. Sigmoid diverticulosis is moderate to severe. There is body wall edema. There is no small bowel obstruction. IMPRESSION: 1. A 3 cm lesion within the pancreatic head/body junction may represent a cystic or necrotic neoplasm but is incompletely characterized without contrast. MRCP could further evaluate if the diagnosis is not already known. 2. Large ascites. Moderate splenomegaly. No gross hepatic surface nodularity. Anasarca. 3. A mild pathologic compression fracture at T11 appears acute to subacute. 4. Small pleural effusions on the left greater than right. Bibasilar atelectasis versus pneumonia. 5. Moderate hiatal hernia. 6. Small right inguinal hernia containing ascites and fat. 7. Bilateral moderate renal atrophy. *One or more of the following individualized dose reduction techniques were utilized for this examination: 1. Automated exposure control. 2. Adjustment of the mA and/or kV according to patient size. 3. Use of iterative reconstruction technique. Electronically signed by: Libby Blanchard MD (06/18/2019 1:52 AM) [id number]
[2019-06-18 02:20] VITALS: BP 118/64
[2019-06-18] MEDS ORDERED: MORPHINE SULFATE 2 MG/ML VIAL. IV PRN (02:30)
[2019-06-18] MEDS ORDERED: ONDANSETRON PF 4 MG/2 ML VIAL. IV PRN (02:30)
[2019-06-18] MEDS ORDERED: FAMOTIDINE 20 MG/2 ML VIAL IVP ONE (03:00)
[2019-06-18 03:51] LABS: % BANDS 2 % (0-9); % BASOS 1 % (0-3); % EOS 2 % (0-5); % LYMPHS 12 % (24-48); % MONOS 4 % (0-10); % SEGS 79 % (35-66); PLT ESTIMATE DECREASED (ADEQUATE)
[2019-06-18 03:52] LABS: ANISOCYTOSIS SLIGHT; OVALOCYTES FEW
[2019-06-18] MEDS: IV NORMAL SALINE 1000ML BAG 1,000 ML IV SCH ×2 (05:33→17:28)
--- NOTE | 2019-06-18 06:33 | EKG ---
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
[2019-06-18 07:00] VITALS: BP 114/55
[2019-06-18 11:00] VITALS: BP 115/58
--- NOTE | 2019-06-18 11:51 | HP ---
ADMIT DATE: 06/18/2019 CHIEF COMPLAINT: Abdominal pain. HISTORY OF PRESENT ILLNESS: The patient is a pleasant 74-year-old male who has been on hospice for pancreatic cancer, I think he has spread of the cancer to the liver. The family states he also has multiple myeloma. Apparently, he had too much pain. He stated he was coming off hospice and going to the hospital. Now, he is on the medical floor. I plan to consult Palliative Care team to help with pain management. PAST MEDICAL HISTORY: Pancreatic cancer, I suspect with mets to the liver; end-stage renal disease, on dialysis; multiple myeloma; left arm fistula; diabetes; hypertension; cholecystectomy. ALLERGIES: ASPIRIN, FISH, IBUPROFEN, NAPROXEN, NUTS, NIACIN. FAMILY HISTORY: Coronary artery disease. SOCIAL HISTORY: He was in the for a long time. Does not drink, smoke or take drugs. MEDICATIONS: Reviewed, please refer to the MRAD. REVIEW OF SYSTEMS: Unable to obtain. The patient is too sedated and sleepy. PHYSICAL EXAMINATION: VITALS: Within normal limits and are stable. GENERAL: He is weak and frail. Does not talk. HEENT: Head is normocephalic, atraumatic, pupils were equally round and reactive to light and accommodation. NECK: Supple, no JVD, no thyromegaly was noted. LUNGS: Clear to auscultation in all lung rg without rhonchi or wheezing. HEART: RRR, S1, S2 present. Peripheral pulses intact, no obvious murmurs were noted. ABDOMEN: Soft. Positive bowel sounds, no organomegaly, normal bowel sounds. He has abdominal pain with palpation. EXTREMITIES: Without any cyanosis, clubbing, or edema. Pedal pulses intact, Homans sign is negative. NEUROLOGIC: He is very weak. PSYCHIATRIC: Normal affect, normal mood. Stable. SKIN: No ulcerations or rashes, good skin turgor, no jaundice. VASCULAR: Good capillary refill, neurovascular bundle appears to be intact. LABORATORY DATA: White count 2.6, hemoglobin 7.5, platelets 85. Electrolytes: Sodium 133, potassium 5.2, chloride 96, bicarbonate 29, BUN 40, creatinine 5.4. ASSESSMENT AND PLAN: End-stage pancreatic cancer with probable liver mets and multiple myeloma with electrolyte disturbance and pancytopenia in an elderly male who is supposed to be on hospice, but he just simply was given the pain management. We will go ahead and work on the pain management and get him back to his hospice. Consult palliative care. Home meds, DVT prophylaxis, DNR. PROGNOSIS: Terminal. GM FAUSTIN DO DR: JOEL/racquel JOB#: [id number] / [id number]
--- NOTE | 2019-06-18 13:09 | PDOC ---
SUBJECTIVE Subjective abdominal pain OBJECTIVE Objective 74 yo male with pancreatic cancer with probable liver mets and multiple myeloma with electrolyte disturbance and pancytopenia. Vital Signs Vital Signs Date Time Temp Pulse Resp B/P (MAP) Pulse Ox O2 Delivery O2 Flow Rate FiO2 06/18/19 08:00 Room Air 06/18/19 07:00 98.2 16 16 114/55 (74) 98.2 06/18/19 03:15 Room Air 06/18/19 02:20 97.7 90 22 118/64 (82) 95 Room Air 97.7 06/18/19 01:56 88 20 116/56 (76) 98 Room Air 06/18/19 01:26 92 24 128/63 (84) 98 Room Air 06/18/19 01:07 30 98 Room Air 06/18/19 00:56 88 29 120/59 (79) 98 Room Air 06/18/19 00:26 86 17 117/63 (81) 97 Room Air 06/17/19 23:57 22 97 Room Air 06/17/19 23:56 86 22 120/61 (80) 97 Room Air 06/17/19 23:26 90 24 114/58 (76) 96 Room Air 06/17/19 22:51 97.8 93 25 118/65 (82) 97 Room Air 97.8 I & O Intake and Output 06/18/19 07:00 Intake Total 1000 ml Balance 1000 ml Intake Oral 0 ml IV Total 1000 ml ASSESSMENT/PLAN Assessment/Plan Mso4 with good pain control currently. May benefit from MsContin q 12 hrs p.o. and oxycodone IR for breakthrough; alternatively, Duragesic patch q 72 hrs. Palliative care recommended COMMENT Lab Laboratory Tests Test 06/17/19 23:30 06/18/19 08:05 White Blood Count 2.6 x10^3/uL (4.0-11.0) Red Blood Count 2.48 x10^6/uL (4.30-5.70) Hemoglobin 7.5 g/dL (13.0-17.5) Hematocrit 22.2 % (39.0-53.0) Mean Corpuscular Volume 90 fL (79-100) Mean Corpuscular Hemoglobin 30 pg (25-35) Mean Corpuscular Hemoglobin Concent 34 g/dL (31-37) Red Cell Distribution Width 19.8 % (11.5-14.5) Platelet Count 85 x10^3/uL (140-400) Neutrophils (%) (Auto) 80 % (31-73) Lymphocytes (%) (Auto) 11 % (24-48) Monocytes (%) (Auto) 5 % (0-9) Eosinophils (%) (Auto) 3 % (0-3) Basophils (%) (Auto) 1 % (0-3) Neutrophils # (Auto) 2.1 x10^3/uL (1.8-7.7) Lymphocytes # (Auto) 0.3 x10^3/uL (1.0-4.8) Monocytes # (Auto) 0.1 x10^3/uL (0.0-1.1) Eosinophils # (Auto) 0.1 x10^3/uL (0.0-0.7) Basophils # (Auto) 0.0 x10^3/uL (0.0-0.2) Segmented Neutrophils % 79 % (35-66) Band Neutrophils % 2 % (0-9) Lymphocytes % 12 % (24-48) Monocytes % 4 % (0-10) Eosinophils % 2 % (0-5) Basophils % 1 % (0-3) Platelet Estimate Decreased (ADEQUATE) Basophilic Stippling Present Anisocytosis Slight Ovalocytes Few Sodium Level 133 mmol/L (136-145) Potassium Level 5.2 mmol/L (3.5-5.1) Chloride Level 96 mmol/L (98-107) Carbon Dioxide Level 29 mmol/L (21-32) Anion Gap 8 (6-14) Blood Urea Nitrogen 40 mg/dL (8-26) Creatinine 5.4 mg/dL (0.7-1.3) Estimated GFR (Cockcroft-Gault) 10.4 BUN/Creatinine Ratio 7 (6-20) Glucose Level 356 mg/dL (70-99) Calcium Level 8.4 mg/dL (8.5-10.1) Total Bilirubin 0.6 mg/dL (0.2-1.0) Aspartate Amino Transf (AST/SGOT) 27 U/L (15-37) Alanine Aminotransferase (ALT/SGPT) 14 U/L (16-63) Alkaline Phosphatase 108 U/L (46-116) Ammonia 15 mcmol/L (11-34) Troponin I Quantitative < 0.017 ng/mL (0.000-0.055) Total Protein 5.6 g/dL (6.4-8.2) Albumin 2.1 g/dL (3.4-5.0) Albumin/Globulin Ratio 0.6 (1.0-1.7) Lipase 68 U/L (73-393) Glucose (Fingerstick) 160 mg/dL (70-99) KOKO MILTON MD Jun 18, 2019 13:09
--- NOTE | 2019-06-18 13:31 | NUR ---
SS following up with discharge planning. SS reviewed pt chart. Pt is currently on hospice with [facility], ; fax [phone], and was on respite stay at [facility], ; fax [phone]. SS phoned and faxed clinical to [facility] and [facility]. SS will continue to follow for discharge planning.
[2019-06-18] MEDS ORDERED: HYDR2TAB31 PO (13:57)
[2019-06-18] MEDS ORDERED: LORA0.5T PO (13:57)
[2019-06-18] MEDS ORDERED: ONDA8TAB9 PO (13:57)
--- NOTE | 2019-06-18 14:36 | PDOC2 ---
CONSULT Date of Consult Date of Consult DATE: 06/18/19 TIME: 14:22 Reason for Consult Reason for Consult: ESRD TTS Source Source: Chart review, Patient History of Present Illness Reason for Visit: Patient is a 74 year old ESRD on HD TTS- [facility] . He has been Dx with MM after I requested Hem/onc consult at [facility] . He also is Dx with pancreatic and liver cancer currently enrolled in hospice who presents with abdominal distention, poorly controlled abdominal pain for pain control. Pain is diffuse moderate to severe and worse with palpation. . He reports progressive generalized abdominal pain with vomiting which has been long-standing. He denies hematemesis coffee-ground emesis. Patient was diagnosed against metastatic pancreatic cancer in January 2019 received 2 courses of chemotherapy at [facility]. He is not received any chemotherapy and a number of weeks or months and is on understanding that his disease is terminal. We had discussions with him multiple times in Dialysis unit to stop HD but pt wants to continue though he is under Hospice care . He is unable to tolerate HD a few times due to Very low BP's Currently he states he still wants to continue HD , his last HD was sat per his schedule. He denies any Increase in SOB . Child Psychologist CP. Past Medical History Cardiovascular: Syncope Pulmonary: Other CENTRAL NERVOUS SYSTEM: Other GI: No pertinent hx Heme/Onc: Anemia NOS Hepatobiliary: Cholelithiasis Psych: No pertinent hx Musculoskeletal: Osteoarthritis Rheumatologic: No pertinent hx Infectious disease: No pertinent hx Renal/: No pertinent hx Endocrine: Diabetes Past Surgical History Past Surgical History: Cataract Removal, Other Social History ALCOHOL: none Drugs: None Lives: Alone Current Problem List Problem List Problems Medical Problems: (1) Nausea & vomiting Status: Acute (2) Pancreatic cancer Status: Acute Current Medications Current Medications Current Medications Fentanyl Citrate (Fentanyl 2ml Vial) 75 mcg 1X ONCE IV Last administered on 06/17/19at 23:57; Start 06/17/19 at 23:30; Stop 06/17/19 at 23:31; Status DC Ondansetron HCl (Zofran) 4 mg 1X ONCE IVP Last administered on 06/17/19at 23:56; Start 06/17/19 at 23:30; Stop 06/17/19 at 23:31; Status DC Sodium Chloride 1,000 ml @ 1,000 mls/hr 1X ONCE IV Last administered on 06/17/19at 23:30; Start 06/17/19 at 23:30; Stop 06/18/19 at 00:29; Status DC Morphine Sulfate (Morphine Sulfate) 4 mg 1X ONCE IV Last administered on 06/18/19at 01:07; Start 06/18/19 at 01:15; Stop 06/18/19 at 01:16; Status DC Prochlorperazine Edisylate (Compazine) 10 mg 1X ONCE IV Last administered on 06/18/19at 01:06; Start 06/18/19 at 01:15; Stop 06/18/19 at 01:16; Status DC Ondansetron HCl (Zofran) 4 mg PRN Q8HRS PRN IV NAUSEA/VOMITING 1ST CHOICE; Start 06/18/19 at 02:30; Stop 06/19/19 at 02:29 Morphine Sulfate (Morphine Sulfate) 2 mg PRN Q2HR PRN IV SEVERE PAIN 7-10; Start 06/18/19 at 02:30; Stop 06/19/19 at 02:29 Sodium Chloride 1,000 ml @ 75 mls/hr [id number] IV Last administered on 06/18/19at 05:33; Start 06/18/19 at 02:30 Famotidine (Pepcid Vial) 20 mg 1X ONCE IVP Last administered on 06/18/19at 05:33; Start 06/18/19 at 03:00; Stop 06/18/19 at 03:01; Status DC Active Scripts Active Reported Lorazepam 0.5 Mg Tablet 1 Tab PO PRN Q4HRS PRN Zofran (Ondansetron Hcl) 8 Mg Tablet 1 Tab PO PRN Q6HRS PRN Dilaudid (Hydromorphone Hcl) 2 Mg Tablet 1 Mg PO PRN Q4HRS PRN Calcium Acetate 667 Mg Tablet 3 Tab PO TIDWMEALS Tylenol (Acetaminophen) 325 Mg Tablet 1-2 Tab PO PRN Q6HRS PRN Flax Oil (Flaxseed Oil) 1,000 Mg Capsule 1,000 Mg PO DAILY Sertraline Hcl 100 Mg Tablet 200 Mg PO DAILY Nortriptyline Hcl 25 Mg Capsule 1 Cap PO QHS Renal Vitamin Tablet (Folic Acid/Vit Bcomp,C) 0.8 Mg Tablet 0.8 Mg PO DAILY Loratadine 10 Mg Tablet 1 Tab PO PRN Q48HR Allergies Allergies: Coded Allergies: aspirin (Verified Allergy, Intermediate, 01/21/19) fish derived (Verified Allergy, Intermediate, 01/21/19) ibuprofen (Verified Allergy, Intermediate, 01/21/19) naproxen (Verified Allergy, Intermediate, 01/21/19) niacin (Verified Allergy, Intermediate, 01/21/19) nut - unspecified (Verified Allergy, Intermediate, 01/21/19) ROS Review of System Per HPI Physical Exam Physical Exam GENERAL: weak and frail. NAD HEENT: OM moist NECK: Supple, LUNGS: Clear to auscultation , decreased at bases HEART: RRR, S1, S2 present. ABDOMEN: Soft. distended , ? Ascites EXTREMITIES: No edema. NEUROLOGIC: He is very weak.Answering questions appropriately SKIN: No ulcerations or rashes, No Dunn Vital Signs Vital Signs Date Time Temp Pulse Resp B/P (MAP) Pulse Ox O2 Delivery O2 Flow Rate FiO2 06/18/19 08:00 Room Air 06/18/19 07:00 98.2 16 16 114/55 (74) 98.2 06/18/19 02:20 95 Assessment & Plan ESRD. On HD TTS at [facility] Currently No emergent indication for HD - Labs and Vol status stable Has not been tolerating HD very well as OP due to significant Hypotension Will schedule for tomorrow - as Pt insists he wants to continue Dialysis Agree with Palliative consult Hyperkalemia- Mild Bld Glucose high, per Primary Hypponatremia- Corrected for Glucose normal Anemia- Hx of Cancers/MM- Normally Not a candidate for LANDON - defer to Onc Multiple Myeloma - Not a candidate for Treatment Pancreatic cancer /Liver ? Ascites- Per GI Very Poor Prognosis Labs Labs Laboratory Tests Test 06/17/19 23:30 06/18/19 08:05 White Blood Count 2.6 x10^3/uL (4.0-11.0) Red Blood Count 2.48 x10^6/uL (4.30-5.70) Hemoglobin 7.5 g/dL (13.0-17.5) Hematocrit 22.2 % (39.0-53.0) Mean Corpuscular Volume 90 fL (79-100) Mean Corpuscular Hemoglobin 30 pg (25-35) Mean Corpuscular Hemoglobin Concent 34 g/dL (31-37) Red Cell Distribution Width 19.8 % (11.5-14.5) Platelet Count 85 x10^3/uL (140-400) Neutrophils (%) (Auto) 80 % (31-73) Lymphocytes (%) (Auto) 11 % (24-48) Monocytes (%) (Auto) 5 % (0-9) Eosinophils (%) (Auto) 3 % (0-3) Basophils (%) (Auto) 1 % (0-3) Neutrophils # (Auto) 2.1 x10^3/uL (1.8-7.7) Lymphocytes # (Auto) 0.3 x10^3/uL (1.0-4.8) Monocytes # (Auto) 0.1 x10^3/uL (0.0-1.1) Eosinophils # (Auto) 0.1 x10^3/uL (0.0-0.7) Basophils # (Auto) 0.0 x10^3/uL (0.0-0.2) Segmented Neutrophils % 79 % (35-66) Band Neutrophils % 2 % (0-9) Lymphocytes % 12 % (24-48) Monocytes % 4 % (0-10) Eosinophils % 2 % (0-5) Basophils % 1 % (0-3) Platelet Estimate Decreased (ADEQUATE) Basophilic Stippling Present Anisocytosis Slight Ovalocytes Few Sodium Level 133 mmol/L (136-145) Potassium Level 5.2 mmol/L (3.5-5.1) Chloride Level 96 mmol/L (98-107) Carbon Dioxide Level 29 mmol/L (21-32) Anion Gap 8 (6-14) Blood Urea Nitrogen 40 mg/dL (8-26) Creatinine 5.4 mg/dL (0.7-1.3) Estimated GFR (Cockcroft-Gault) 10.4 BUN/Creatinine Ratio 7 (6-20) Glucose Level 356 mg/dL (70-99) Calcium Level 8.4 mg/dL (8.5-10.1) Total Bilirubin 0.6 mg/dL (0.2-1.0) Aspartate Amino Transf (AST/SGOT) 27 U/L (15-37) Alanine Aminotransferase (ALT/SGPT) 14 U/L (16-63) Alkaline Phosphatase 108 U/L (46-116) Ammonia 15 mcmol/L (11-34) Troponin I Quantitative < 0.017 ng/mL (0.000-0.055) Total Protein 5.6 g/dL (6.4-8.2) Albumin 2.1 g/dL (3.4-5.0) Albumin/Globulin Ratio 0.6 (1.0-1.7) Lipase 68 U/L (73-393) Glucose (Fingerstick) 160 mg/dL (70-99) Laboratory Tests Test 06/17/19 23:30 06/18/19 08:05 White Blood Count 2.6 x10^3/uL (4.0-11.0) Red Blood Count 2.48 x10^6/uL (4.30-5.70) Hemoglobin 7.5 g/dL (13.0-17.5) Hematocrit 22.2 % (39.0-53.0) Mean Corpuscular Volume 90 fL (79-100) Mean Corpuscular Hemoglobin 30 pg (25-35) Mean Corpuscular Hemoglobin Concent 34 g/dL (31-37) Red Cell Distribution Width 19.8 % (11.5-14.5) Platelet Count 85 x10^3/uL (140-400) Neutrophils (%) (Auto) 80 % (31-73) Lymphocytes (%) (Auto) 11 % (24-48) Monocytes (%) (Auto) 5 % (0-9) Eosinophils (%) (Auto) 3 % (0-3) Basophils (%) (Auto) 1 % (0-3) Neutrophils # (Auto) 2.1 x10^3/uL (1.8-7.7) Lymphocytes # (Auto) 0.3 x10^3/uL (1.0-4.8) Monocytes # (Auto) 0.1 x10^3/uL (0.0-1.1) Eosinophils # (Auto) 0.1 x10^3/uL (0.0-0.7) Basophils # (Auto) 0.0 x10^3/uL (0.0-0.2) Segmented Neutrophils % 79 % (35-66) Band Neutrophils % 2 % (0-9) Lymphocytes % 12 % (24-48) Monocytes % 4 % (0-10) Eosinophils % 2 % (0-5) Basophils % 1 % (0-3) Platelet Estimate Decreased (ADEQUATE) Basophilic Stippling Present Anisocytosis Slight Ovalocytes Few Sodium Level 133 mmol/L (136-145) Potassium Level 5.2 mmol/L (3.5-5.1) Chloride Level 96 mmol/L (98-107) Carbon Dioxide Level 29 mmol/L (21-32) Anion Gap 8 (6-14) Blood Urea Nitrogen 40 mg/dL (8-26) Creatinine 5.4 mg/dL (0.7-1.3) Estimated GFR (Cockcroft-Gault) 10.4 BUN/Creatinine Ratio 7 (6-20) Glucose Level 356 mg/dL (70-99) Calcium Level 8.4 mg/dL (8.5-10.1) Total Bilirubin 0.6 mg/dL (0.2-1.0) Aspartate Amino Transf (AST/SGOT) 27 U/L (15-37) Alanine Aminotransferase (ALT/SGPT) 14 U/L (16-63) Alkaline Phosphatase 108 U/L (46-116) Ammonia 15 mcmol/L (11-34) Troponin I Quantitative < 0.017 ng/mL (0.000-0.055) Total Protein 5.6 g/dL (6.4-8.2) Albumin 2.1 g/dL (3.4-5.0) Albumin/Globulin Ratio 0.6 (1.0-1.7) Lipase 68 U/L (73-393) Glucose (Fingerstick) 160 mg/dL (70-99) Review All relevant outside records, renal labs, imaging studies, telemetry/EKG's were reviewed. MAHENDRA GARCIA MD Jun 18, 2019 14:36
[2019-06-18 15:00] VITALS: BP 117/58
[2019-06-18] MEDS ORDERED: HYDROmorphone 2 MG TABLET PO PRN (16:45)
[2019-06-18] MEDS ORDERED: fentaNYL 12MCG/HR PATCH 1 PATCH PATCH.TD72 TD SCH (16:45)
[2019-06-18] MEDS ORDERED: LORazepam 0.5 MG TABLET PO PRN (16:45)
[2019-06-18] MEDS ORDERED: fentaNYL PF VIAL 100 MCG/2 ML VIAL IV PRN (16:45)
[2019-06-18] MEDS: ONDANSETRON ODT 4 MG TAB.RAPDIS. PO PRN (17:27)
[2019-06-18] MEDS: CALCIUM ACETATE 667 MG CAPSULE PO SCH (17:57)
[2019-06-18 19:55] VITALS: BP 111/64
[2019-06-18] MEDS ORDERED: NORTRIPTYLINE 25 MG CAPSULE PO SCH (21:00)
--- NOTE | 2019-06-18 22:16 | CONS ---
DATE OF CONSULTATION: 06/18/2019 MEDICAL ONCOLOGY CONSULTATION REPORT REQUESTING PHYSICIAN: Matt Solorzano DO REASON FOR CONSULTATION: Multiple myeloma. HISTORY OF PRESENT ILLNESS: The patient is a 74-year-old gentleman who was noted to have pancytopenia when he was admitted to [facility] in 01/2019. Further workup was done with a bone marrow biopsy on 01/22/2019 which revealed kappa light chain restricted plasma cells compatible with multiple myeloma comprising of 60-70% of the bone marrow nucleated red blood cells. I had seen him on consultation and discussed about options of starting chemotherapy with Velcade and dexamethasone. He initially agreed with treatment, but never returned to the office. I reviewed the medical records which indicates that he was admitted to hospice care. While on hospice, he was noted to have worsening abdominal pain and hence he was admitted to [facility] for further evaluation. He underwent a CT scan of the abdomen and pelvis on 06/17/2019 which revealed a 3 cm lesion within the pancreatic head, which may represent a cystic or necrotic neoplasm. Large ascites, moderate splenomegaly and anasarca was noted. Mild pathologic compression fracture at T11 appears to be acute to subacute. PAST MEDICAL HISTORY: 1. End-stage renal disease. 2. Multiple myeloma. 3. Diabetes. 4. Hypertension. 5. Cholecystectomy. SOCIAL HISTORY: He was in the for a long time. No smoking or alcohol abuse. FAMILY HISTORY: Positive for coronary artery disease. REVIEW OF SYSTEMS: A 12-point review of system was performed. Pertinent positives are mentioned in the history of present illness and rest of the system review is negative. PHYSICAL EXAMINATION: GENERAL APPEARANCE: The patient is a 74-year-old gentleman who is in no acute cardiorespiratory distress. VITAL SIGNS: Blood pressure 114/55, temperature 98.2. HEAD: Atraumatic, normocephalic. EYES: No icterus. NECK: Supple. CHEST: Bilaterally symmetrical. HEART: S1, S2 normal. ABDOMEN: Soft, no masses palpable. Distended. CENTRAL NERVOUS SYSTEM: Alert and awake. LYMPHATICS: No lymphadenopathy. SKIN: No rashes. PSYCHOLOGIC: He has a flat affect. LABORATORY DATA: WBC 2.6, hemoglobin 7.5, platelet count 85,000. Creatinine 5.4. IMPRESSION AND PLAN: 1. Multiple myeloma diagnosed by bone marrow biopsy on 01/22/2019. The patient is currently on hospice care and I would recommend discharging back to hospice once his pain is under control. 2. Pancreatic mass. This has never been biopsied per [facility] records. No further workup is recommended as the patient is not a candidate for any treatment. 3. Large ascites. 4. Splenomegaly. 5. 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 Continue supportive care. Appreciate Nephrology consultation. VERÓNICA COBB MD DR: LETICIA/racquel JOB#: [id number] / [id number] KEI
[2019-06-18 23:10] VITALS: BP 120/64
[2019-06-19 03:30] VITALS: BP 110/62
[2019-06-19 04:46] LABS: BASO % 1 % (0-3); EOS # 0.1 x10^3/uL (0.0-0.7); EOS % 5 % (0-3); HEMATOCRIT 21.9 % (39.0-53.0); HEMOGLOBIN 7.3 g/dL (13.0-17.5); LYMPH # 0.6 x10^3/uL (1.0-4.8); LYMPH % 19 % (24-48); MEAN CORPUSCULAR HEMOGLOBIN 30 pg (25-35); MEAN CORPUSCULAR HGB CONC 34 g/dL (31-37); MEAN CORPUSCULAR VOLUME 90 fL (79-100); MONO # 0.2 x10^3/uL (0.0-1.1); MONO % 8 % (0-9); NEUT % 68 % (31-73); PLATELET COUNT 69 x10^3/uL (140-400); RED BLOOD COUNT 2.43 x10^6/uL (4.30-5.70); RED CELL DISTRIBUTION WIDTH 19.1 % (11.5-14.5)
[2019-06-19 05:25] LABS: ALBUMIN 1.8 g/dL (3.4-5.0); ALBUMIN/GLOBULIN RATIO 0.5 (1.0-1.7); CALCIUM 8.4 mg/dL (8.5-10.1); CREATININE 6.4 mg/dL (0.7-1.3); GFR 8.6; TOTAL BILIRUBIN 0.6 mg/dL (0.2-1.0); TOTAL PROTEIN 5.1 g/dL (6.4-8.2)
[2019-06-19 05:42] LABS: POTASSIUM 6.2 mmol/L (3.5-5.1)
[2019-06-19 07:00] VITALS: BP 103/60
[2019-06-19] MEDS ORDERED: IV NORMAL SALINE 1000ML BAG 1,000 ML IV PRN ×2 (07:00→09:05)
[2019-06-19] MEDS ORDERED: ALBUMIN HUMAN 25% 200 ML IV PRN (07:00)
[2019-06-19] MEDS ORDERED: MIDODRINE 5 MG TABLET PO PRN (07:00)
--- NOTE | 2019-06-19 08:57 | PDOC ---
PROGRESS NOTES Subjective Subjective HPI - f/u of Multiple myeloma ROS - no pain today Objective Objective Vital Signs Date Time Temp Pulse Resp B/P (MAP) Pulse Ox O2 Delivery O2 Flow Rate FiO2 06/19/19 07:00 97.8 96 20 103/60 (74) 94 Nasal Cannula 2.0 97.8 Intake and Output 06/19/19 07:00 Intake Total 100 ml Balance 100 ml Intake Oral 100 ml Physical Exam Heart: Normal S1, Normal S2 General: Alert, Oriented X3, No acute distress Lungs: Clear to auscultation Assessment Assessment Problems Medical Problems: (1) Nausea & vomiting Status: Acute (2) Pancreatic cancer Status: Acute IMPRESSION AND PLAN: 1. Multiple myeloma diagnosed by bone marrow biopsy on 01/22/2019. The patient is currently on hospice care and I would recommend discharging back to hospice once his pain is under control. 2. Pancreatic mass. This has never been biopsied per [facility] records. No further workup is recommended as the patient is not a candidate for any treatment. 3. Large ascites. 4. Splenomegaly. 5. 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 Continue supportive care. 6. ESRD - Appreciate Nephrology consultation. I d/w RN Comment Review of Relevant I have reviewed the following items bhargav (where applicable) has been applied. Labs Laboratory Tests Test 06/17/19 23:30 06/18/19 08:05 06/18/19 17:32 06/18/19 21:13 White Blood Count 2.6 x10^3/uL (4.0-11.0) Red Blood Count 2.48 x10^6/uL (4.30-5.70) Hemoglobin 7.5 g/dL (13.0-17.5) Hematocrit 22.2 % (39.0-53.0) Mean Corpuscular Volume 90 fL (79-100) Mean Corpuscular Hemoglobin 30 pg (25-35) Mean Corpuscular Hemoglobin Concent 34 g/dL (31-37) Red Cell Distribution Width 19.8 % (11.5-14.5) Platelet Count 85 x10^3/uL (140-400) Neutrophils (%) (Auto) 80 % (31-73) Lymphocytes (%) (Auto) 11 % (24-48) Monocytes (%) (Auto) 5 % (0-9) Eosinophils (%) (Auto) 3 % (0-3) Basophils (%) (Auto) 1 % (0-3) Neutrophils # (Auto) 2.1 x10^3/uL (1.8-7.7) Lymphocytes # (Auto) 0.3 x10^3/uL (1.0-4.8) Monocytes # (Auto) 0.1 x10^3/uL (0.0-1.1) Eosinophils # (Auto) 0.1 x10^3/uL (0.0-0.7) Basophils # (Auto) 0.0 x10^3/uL (0.0-0.2) Segmented Neutrophils % 79 % (35-66) Band Neutrophils % 2 % (0-9) Lymphocytes % 12 % (24-48) Monocytes % 4 % (0-10) Eosinophils % 2 % (0-5) Basophils % 1 % (0-3) Platelet Estimate Decreased (ADEQUATE) Basophilic Stippling Present Anisocytosis Slight Ovalocytes Few Sodium Level 133 mmol/L (136-145) Potassium Level 5.2 mmol/L (3.5-5.1) Chloride Level 96 mmol/L (98-107) Carbon Dioxide Level 29 mmol/L (21-32) Anion Gap 8 (6-14) Blood Urea Nitrogen 40 mg/dL (8-26) Creatinine 5.4 mg/dL (0.7-1.3) Estimated GFR (Cockcroft-Gault) 10.4 BUN/Creatinine Ratio 7 (6-20) Glucose Level 356 mg/dL (70-99) Calcium Level 8.4 mg/dL (8.5-10.1) Total Bilirubin 0.6 mg/dL (0.2-1.0) Aspartate Amino Transf (AST/SGOT) 27 U/L (15-37) Alanine Aminotransferase (ALT/SGPT) 14 U/L (16-63) Alkaline Phosphatase 108 U/L (46-116) Ammonia 15 mcmol/L (11-34) Troponin I Quantitative < 0.017 ng/mL (0.000-0.055) Total Protein 5.6 g/dL (6.4-8.2) Albumin 2.1 g/dL (3.4-5.0) Albumin/Globulin Ratio 0.6 (1.0-1.7) Lipase 68 U/L (73-393) Glucose (Fingerstick) 160 mg/dL (70-99) 158 mg/dL (70-99) 202 mg/dL (70-99) Test 06/19/19 03:50 06/19/19 07:39 White Blood Count 3.0 x10^3/uL (4.0-11.0) Red Blood Count 2.43 x10^6/uL (4.30-5.70) Hemoglobin 7.3 g/dL (13.0-17.5) Hematocrit 21.9 % (39.0-53.0) Mean Corpuscular Volume 90 fL (79-100) Mean Corpuscular Hemoglobin 30 pg (25-35) Mean Corpuscular Hemoglobin Concent 34 g/dL (31-37) Red Cell Distribution Width 19.1 % (11.5-14.5) Platelet Count 69 x10^3/uL (140-400) Neutrophils (%) (Auto) 68 % (31-73) Lymphocytes (%) (Auto) 19 % (24-48) Monocytes (%) (Auto) 8 % (0-9) Eosinophils (%) (Auto) 5 % (0-3) Basophils (%) (Auto) 1 % (0-3) Neutrophils # (Auto) 2.0 x10^3/uL (1.8-7.7) Lymphocytes # (Auto) 0.6 x10^3/uL (1.0-4.8) Monocytes # (Auto) 0.2 x10^3/uL (0.0-1.1) Eosinophils # (Auto) 0.1 x10^3/uL (0.0-0.7) Basophils # (Auto) 0.0 x10^3/uL (0.0-0.2) Sodium Level 136 mmol/L (136-145) Potassium Level 6.2 mmol/L (3.5-5.1) Chloride Level 101 mmol/L (98-107) Carbon Dioxide Level 25 mmol/L (21-32) Anion Gap 10 (6-14) Blood Urea Nitrogen 47 mg/dL (8-26) Creatinine 6.4 mg/dL (0.7-1.3) Estimated GFR (Cockcroft-Gault) 8.6 BUN/Creatinine Ratio 7 (6-20) Glucose Level 147 mg/dL (70-99) Calcium Level 8.4 mg/dL (8.5-10.1) Total Bilirubin 0.6 mg/dL (0.2-1.0) Aspartate Amino Transf (AST/SGOT) 28 U/L (15-37) Alanine Aminotransferase (ALT/SGPT) 9 U/L (16-63) Alkaline Phosphatase 94 U/L (46-116) Total Protein 5.1 g/dL (6.4-8.2) Albumin 1.8 g/dL (3.4-5.0) Albumin/Globulin Ratio 0.5 (1.0-1.7) Glucose (Fingerstick) 135 mg/dL (70-99) Laboratory Tests Test 06/18/19 17:32 06/18/19 21:13 06/19/19 03:50 06/19/19 07:39 Glucose (Fingerstick) 158 mg/dL (70-99) 202 mg/dL (70-99) 135 mg/dL (70-99) White Blood Count 3.0 x10^3/uL (4.0-11.0) Red Blood Count 2.43 x10^6/uL (4.30-5.70) Hemoglobin 7.3 g/dL (13.0-17.5) Hematocrit 21.9 % (39.0-53.0) Mean Corpuscular Volume 90 fL (79-100) Mean Corpuscular Hemoglobin 30 pg (25-35) Mean Corpuscular Hemoglobin Concent 34 g/dL (31-37) Red Cell Distribution Width 19.1 % (11.5-14.5) Platelet Count 69 x10^3/uL (140-400) Neutrophils (%) (Auto) 68 % (31-73) Lymphocytes (%) (Auto) 19 % (24-48) Monocytes (%) (Auto) 8 % (0-9) Eosinophils (%) (Auto) 5 % (0-3) Basophils (%) (Auto) 1 % (0-3) Neutrophils # (Auto) 2.0 x10^3/uL (1.8-7.7) Lymphocytes # (Auto) 0.6 x10^3/uL (1.0-4.8) Monocytes # (Auto) 0.2 x10^3/uL (0.0-1.1) Eosinophils # (Auto) 0.1 x10^3/uL (0.0-0.7) Basophils # (Auto) 0.0 x10^3/uL (0.0-0.2) Sodium Level 136 mmol/L (136-145) Potassium Level 6.2 mmol/L (3.5-5.1) Chloride Level 101 mmol/L (98-107) Carbon Dioxide Level 25 mmol/L (21-32) Anion Gap 10 (6-14) Blood Urea Nitrogen 47 mg/dL (8-26) Creatinine 6.4 mg/dL (0.7-1.3) Estimated GFR (Cockcroft-Gault) 8.6 BUN/Creatinine Ratio 7 (6-20) Glucose Level 147 mg/dL (70-99) Calcium Level 8.4 mg/dL (8.5-10.1) Total Bilirubin 0.6 mg/dL (0.2-1.0) Aspartate Amino Transf (AST/SGOT) 28 U/L (15-37) Alanine Aminotransferase (ALT/SGPT) 9 U/L (16-63) Alkaline Phosphatase 94 U/L (46-116) Total Protein 5.1 g/dL (6.4-8.2) Albumin 1.8 g/dL (3.4-5.0) Albumin/Globulin Ratio 0.5 (1.0-1.7) Microbiology 06/18/19 Blood Culture - Preliminary, Resulted NO GROWTH AFTER 1 DAY Medications Current Medications Fentanyl Citrate (Fentanyl 2ml Vial) 75 mcg 1X ONCE IV Last administered on 06/17/19at 23:57; Start 06/17/19 at 23:30; Stop 06/17/19 at 23:31; Status DC Ondansetron HCl (Zofran) 4 mg 1X ONCE IVP Last administered on 06/17/19at 23:56; Start 06/17/19 at 23:30; Stop 06/17/19 at 23:31; Status DC Sodium Chloride 1,000 ml @ 1,000 mls/hr 1X ONCE IV Last administered on 06/17/19at 23:30; Start 06/17/19 at 23:30; Stop 06/18/19 at 00:29; Status DC Morphine Sulfate (Morphine Sulfate) 4 mg 1X ONCE IV Last administered on 06/18/19at 01:07; Start 06/18/19 at 01:15; Stop 06/18/19 at 16:43; Status DC Prochlorperazine Edisylate (Compazine) 10 mg 1X ONCE IV Last administered on 06/18/19at 01:06; Start 06/18/19 at 01:15; Stop 06/18/19 at 01:16; Status DC Ondansetron HCl (Zofran) 4 mg PRN Q8HRS PRN IV NAUSEA/VOMITING 1ST CHOICE; Start 06/18/19 at 02:30; Stop 06/19/19 at 02:29; Status DC Morphine Sulfate (Morphine Sulfate) 2 mg PRN Q2HR PRN IV SEVERE PAIN 7-10; Start 06/18/19 at 02:30; Stop 06/18/19 at 16:43; Status DC Sodium Chloride 1,000 ml @ 75 mls/hr [id number] IV Last administered on 06/18/19at 17:28; Start 06/18/19 at 02:30 Famotidine (Pepcid Vial) 20 mg 1X ONCE IVP Last administered on 06/18/19at 05:33; Start 06/18/19 at 03:00; Stop 06/18/19 at 03:01; Status DC Hydromorphone HCl (Dilaudid) 1 mg PRN Q4HRS PRN PO MODERATE PAIN Last administered on 06/19/19at 08:37; Start 06/18/19 at 16:45 Lorazepam (Ativan) 0.5 mg PRN Q4HRS PRN PO ANXIETY / AGITATION; Start 06/18/19 at 16:45 Nortriptyline HCl (Pamelor) 25 mg QHS PO Last administered on 06/18/19at 20:43; Start 06/18/19 at 21:00 Calcium Acetate (Phoslo) 2,001 mg TIDWMEALS PO Last administered on 06/18/19at 17:57; Start 06/18/19 at 17:00 Ondansetron HCl (Zofran Odt) 4 mg PRN Q6HRS PRN PO NAUSEA/VOMITING Last administered on 06/18/19at 17:27; Start 06/18/19 at 17:00 Sertraline HCl (Zoloft) 200 mg DAILY PO ; Start 06/19/19 at 09:00 Fentanyl Citrate (Fentanyl 2ml Vial) 50 mcg PRN Q3HRS PRN IV SEVERE PAIN; Start 06/18/19 at 16:45 Fentanyl (Duragesic 12mcg/ Hr Patch) 1 patch Q3DAYS TD Last administered on 06/18/19at 17:22; Start 06/18/19 at 16:45 Active Scripts Active Reported Lorazepam 0.5 Mg Tablet 1 Tab PO PRN Q4HRS PRN Zofran (Ondansetron Hcl) 8 Mg Tablet 1 Tab PO PRN Q6HRS PRN Dilaudid (Hydromorphone Hcl) 2 Mg Tablet 1 Mg PO PRN Q4HRS PRN Calcium Acetate 667 Mg Tablet 3 Tab PO TIDWMEALS Tylenol (Acetaminophen) 325 Mg Tablet 1-2 Tab PO PRN Q6HRS PRN Flax Oil (Flaxseed Oil) 1,000 Mg Capsule 1,000 Mg PO DAILY Sertraline Hcl 100 Mg Tablet 200 Mg PO DAILY Nortriptyline Hcl 25 Mg Capsule 1 Cap PO QHS Renal Vitamin Tablet (Folic Acid/Vit Bcomp,C) 0.8 Mg Tablet 0.8 Mg PO DAILY Loratadine 10 Mg Tablet 1 Tab PO PRN Q48HR Vitals/I & O Vital Sign - Last 24 Hours 06/18/19 06/18/19 06/18/19 06/18/19 11:00 15:00 17:22 19:55 Temp 97.9 97.9 98.0 97.9 97.9 98.0 Pulse 83 86 101 Resp 18 18 22 B/P (MAP) 115/58 (77) 117/58 (77) 111/64 (80) Pulse Ox 94 90 97 O2 Delivery Room Air Room Air Room Air Nasal Cannula O2 Flow Rate 2.0 06/18/19 06/18/19 06/19/19 06/19/19 20:00 23:10 03:30 07:00 Temp 97.7 98.0 97.8 97.7 98.0 97.8 Pulse 86 89 96 Resp 20 22 20 B/P (MAP) 120/64 (82) 110/62 (78) 103/60 (74) Pulse Ox 98 94 94 O2 Delivery Room Air Nasal Cannula Room Air Nasal Cannula O2 Flow Rate 2.0 2.0 2.0 Intake and Output 06/18/19 06/18/1919 15:00 23:00 07:00 Intake Total 100 ml Balance 100 ml VERÓNICA COBB MD Jun 19, 2019 08:57
[2019-06-19] MEDS ORDERED: SERTRALINE 50 MG TABLET. PO SCH (09:00)
[2019-06-19] MEDS ORDERED: DIALYSIS PATIENT. MC PRN ×2 (09:15)
--- NOTE | 2019-06-19 10:10 | PDOC ---
SUBJECTIVE ROS Seen on HD, BP stable OBJECTIVE Vital Signs Vital Signs Date Time Temp Pulse Resp B/P (MAP) Pulse Ox O2 Delivery O2 Flow Rate FiO2 06/19/19 07:00 97.8 96 20 103/60 (74) 94 Nasal Cannula 2.0 97.8 I & 0 Intake and Output 06/19/19 07:00 Intake Total 100 ml Balance 100 ml Intake Oral 100 ml PHYSICAL EXAM Physical Exam GENERAL: weak and frail. NAD HEENT: OM moist NECK: Supple, LUNGS: Clear to auscultation , decreased at bases HEART: RRR, S1, S2 present. ABDOMEN: Soft. distended , ? Ascites EXTREMITIES: No edema. NEUROLOGIC: He is very weak.Answering questions appropriately SKIN: No ulcerations or rashes, No Dunn DIAGNOSIS/ASSESSMENT Assessment & Plan ESRD. On HD TTS at [facility] Seen on HD today, BP stable in 90's continue as ordered, Cristian Stephens Hyperkalemia- HD as ordered Anemia- Hx of Cancers/MM- Normally Not a candidate for L[facility]ON - defer to Onc Multiple Myeloma - per hem/onc ?Pancreatic cancer /Liver per Hem/onc ? Ascites- Per GI Very Poor Prognosis COMMENT/RELEVANT DATA Meds Current Medications Medications (Trade) Dose Ordered Sig/David Start Time Stop Time Status Last Admin Dose Admin Albumin Human 200 ml @ 200 mls/hr 1X PRN PRN 06/19/19 07:00 06/19/19 12:59 Calcium Acetate (Phoslo) 2,001 mg TIDWMEALS 06/18/19 17:00 06/18/19 17:57 2,001 MG Famotidine (Pepcid Vial) 20 mg 1X ONCE 06/18/19 03:00 06/18/19 03:01 DC 06/18/19 05:33 20 MG Fentanyl (Duragesic 12mcg/ Hr Patch) 1 patch Q3DAYS 06/18/19 16:45 06/18/19 17:22 1 PATCH Fentanyl Citrate (Fentanyl 2ml Vial) 50 mcg PRN Q3HRS PRN 06/18/19 16:45 Hydromorphone HCl (Dilaudid) 1 mg PRN Q4HRS PRN 06/18/19 16:45 06/19/19 08:37 1 MG Info (PHARMACY MONITORING -- do not chart) 1 each PRN DAILY PRN 06/19/19 09:15 UNV Lorazepam (Ativan) 0.5 mg PRN Q4HRS PRN 06/18/19 16:45 Midodrine (Proamatine) 5 mg 1X PRN 06/19/19 07:00 06/19/19 18:00 Morphine Sulfate (Morphine Sulfate) 2 mg PRN Q2HR PRN 06/18/19 02:30 06/18/19 16:43 DC Nortriptyline HCl (Pamelor) 25 mg QHS 06/18/19 21:00 06/18/19 20:43 25 MG Ondansetron HCl (Zofran Odt) 4 mg PRN Q6HRS PRN 06/18/19 17:00 06/18/19 17:27 4 MG Ondansetron HCl (Zofran) 4 mg PRN Q8HRS PRN 06/18/19 02:30 06/19/19 02:29 DC Prochlorperazine Edisylate (Compazine) 10 mg 1X ONCE 06/18/19 01:15 06/18/19 01:16 DC 06/18/19 01:06 10 MG Sertraline HCl (Zoloft) 200 mg DAILY 06/19/19 09:00 Sodium Chloride 1,000 ml @ 400 mls/hr Q2H30M PRN 06/19/19 09:05 06/19/19 21:04 Lab Laboratory Tests Test 06/18/19 17:32 06/18/19 21:13 06/19/19 03:50 06/19/19 07:39 Glucose (Fingerstick) 158 mg/dL (70-99) 202 mg/dL (70-99) 135 mg/dL (70-99) White Blood Count 3.0 x10^3/uL (4.0-11.0) Red Blood Count 2.43 x10^6/uL (4.30-5.70) Hemoglobin 7.3 g/dL (13.0-17.5) Hematocrit 21.9 % (39.0-53.0) Mean Corpuscular Volume 90 fL (79-100) Mean Corpuscular Hemoglobin 30 pg (25-35) Mean Corpuscular Hemoglobin Concent 34 g/dL (31-37) Red Cell Distribution Width 19.1 % (11.5-14.5) Platelet Count 69 x10^3/uL (140-400) Neutrophils (%) (Auto) 68 % (31-73) Lymphocytes (%) (Auto) 19 % (24-48) Monocytes (%) (Auto) 8 % (0-9) Eosinophils (%) (Auto) 5 % (0-3) Basophils (%) (Auto) 1 % (0-3) Neutrophils # (Auto) 2.0 x10^3/uL (1.8-7.7) Lymphocytes # (Auto) 0.6 x10^3/uL (1.0-4.8) Monocytes # (Auto) 0.2 x10^3/uL (0.0-1.1) Eosinophils # (Auto) 0.1 x10^3/uL (0.0-0.7) Basophils # (Auto) 0.0 x10^3/uL (0.0-0.2) Sodium Level 136 mmol/L (136-145) Potassium Level 6.2 mmol/L (3.5-5.1) Chloride Level 101 mmol/L (98-107) Carbon Dioxide Level 25 mmol/L (21-32) Anion Gap 10 (6-14) Blood Urea Nitrogen 47 mg/dL (8-26) Creatinine 6.4 mg/dL (0.7-1.3) Estimated GFR (Cockcroft-Gault) 8.6 BUN/Creatinine Ratio 7 (6-20) Glucose Level 147 mg/dL (70-99) Calcium Level 8.4 mg/dL (8.5-10.1) Total Bilirubin 0.6 mg/dL (0.2-1.0) Aspartate Amino Transf (AST/SGOT) 28 U/L (15-37) Alanine Aminotransferase (ALT/SGPT) 9 U/L (16-63) Alkaline Phosphatase 94 U/L (46-116) Total Protein 5.1 g/dL (6.4-8.2) Albumin 1.8 g/dL (3.4-5.0) Albumin/Globulin Ratio 0.5 (1.0-1.7) Results All relevant outside records, renal labs, imaging studies, telemetry/EKG's were reviewed. MAHENDRA GARCIA MD Jun 19, 2019 10:10
--- NOTE | 2019-06-19 11:20 | SNU/HH DC ---
DISCHARGE ORDERS DISCHARGE INFORMATION: FINAL DIAGNOSIS Problems Medical Problems: (1) Nausea & vomiting Status: Acute (2) Pancreatic cancer Status: Acute CONDITION ON DISCHARGE: Stable CODE STATUS: Code Status: DNR/DNI FPC: SNF STAY <30 DAYS: No HOSPICE: HOSPICE: Yes HOSPICE EVAL & TREAT: Yes LTAC: ADMIT TO LTAC: No POST DISCHARGE ORDERS: ACTIVITY ORDERS: Activity as tolerated WEIGHT BEARING STATUS: As tolerated DIET AFTER DISCHARGE: Cardiac CHECKS AFTER DISCHARGE: CHECKS AFTER DISCHARGE: Check blood press - daily TREATMENT/EQUIPMENT ORDERS: ADAPTIVE EQUIPMENT NEEDED: None Physical Therapy For: Evalulation/Treatment Occupational Therapy For: Evaluation/Treatment DISCHARGE MEDICATIONS: Home Meds Reported Medications Lorazepam (LORAZEPAM) 0.5 Mg Tablet, 1 TAB PO PRN Q4HRS PRN for ANXIETY / AGITATION, #90 TAB 06/18/19 Ondansetron Hcl (ZOFRAN) 8 Mg Tablet, 1 TAB PO PRN Q6HRS PRN for NAUSEA/VOMITING, #30 TAB 1 Refill 06/18/19 Hydromorphone Hcl (DILAUDID) 2 Mg Tablet, 1 MG PO PRN Q4HRS PRN for PAIN, TAB 06/18/19 Calcium Acetate (CALCIUM ACETATE) 667 Mg Tablet, 3 TAB PO TIDWMEALS for DIALYSIS PATIENTS, CAP 01/21/19 Acetaminophen (TYLENOL) 325 Mg Tablet, 1-2 TAB PO PRN Q6HRS PRN for PAIN, #60 TAB 2 Refills 01/18/19 Flaxseed Oil (FLAX OIL) 1,000 Mg Capsule, 1000 MG PO DAILY for , CAP 01/18/19 Sertraline Hcl (SERTRALINE HCL) 100 Mg Tablet, 200 MG PO DAILY for ANTI- DEPRESSANT, TAB 0 Refills 01/18/19 Nortriptyline Hcl (NORTRIPTYLINE HCL) 25 Mg Capsule, 1 CAP PO QHS for , #30 CAP 3 Refills 01/18/19 Folic Acid/Vit Bcomp,C (Renal Vitamin Tablet) 0.8 Mg Tablet, 0.8 MG PO DAILY for , TAB 01/18/19 Loratadine (LORATADINE) 10 Mg Tablet, 1 TAB PO PRN Q48HR for , #30 TAB 5 Refills 01/18/19 GM FAUSTIN III DO Jun 19, 2019 11:20
--- NOTE | 2019-06-19 11:28 | PDOC ---
[employer] PROGRESS NOTE Chief Complaint Chief Complaint Multiple myeloma. ESRD Pancreatic lesion. Abdominal pain History of Present Illness History of Present Illness 06/19/19 Pt seen and examined at bedside dialysis [facility] Pt appears mildly distressed Charts and labs reviewed Pt has pancreatic lesion that has not been biopsied per heme-onc Potassium was 6.2, up from 5.2 BUN was 47, up from 40 Cr was 6.4, up from 5.4 D/w nurse Vitals/I&O Vitals/I&O: Vital Signs Date Time Temp Pulse Resp B/P (MAP) Pulse Ox O2 Delivery O2 Flow Rate FiO2 06/19/19 07:00 97.8 96 20 103/60 (74) 94 Nasal Cannula 2.0 97.8 I & O 06/18/19 06/18/19 06/19/19 15:00 23:00 07:00 Intake Total 100 ml Balance 100 ml Physical Exam General: Alert, Oriented X3, No acute distress Heart: Normal S1, Normal S2 Lungs: Clear Extremities: No clubbing Labs Labs: Laboratory Tests Test 06/18/19 17:32 06/18/19 21:13 06/19/19 03:50 06/19/19 07:39 Glucose (Fingerstick) 158 mg/dL (70-99) 202 mg/dL (70-99) 135 mg/dL (70-99) White Blood Count 3.0 x10^3/uL (4.0-11.0) Red Blood Count 2.43 x10^6/uL (4.30-5.70) Hemoglobin 7.3 g/dL (13.0-17.5) Hematocrit 21.9 % (39.0-53.0) Mean Corpuscular Volume 90 fL (79-100) Mean Corpuscular Hemoglobin 30 pg (25-35) Mean Corpuscular Hemoglobin Concent 34 g/dL (31-37) Red Cell Distribution Width 19.1 % (11.5-14.5) Platelet Count 69 x10^3/uL (140-400) Neutrophils (%) (Auto) 68 % (31-73) Lymphocytes (%) (Auto) 19 % (24-48) Monocytes (%) (Auto) 8 % (0-9) Eosinophils (%) (Auto) 5 % (0-3) Basophils (%) (Auto) 1 % (0-3) Neutrophils # (Auto) 2.0 x10^3/uL (1.8-7.7) Lymphocytes # (Auto) 0.6 x10^3/uL (1.0-4.8) Monocytes # (Auto) 0.2 x10^3/uL (0.0-1.1) Eosinophils # (Auto) 0.1 x10^3/uL (0.0-0.7) Basophils # (Auto) 0.0 x10^3/uL (0.0-0.2) Sodium Level 136 mmol/L (136-145) Potassium Level 6.2 mmol/L (3.5-5.1) Chloride Level 101 mmol/L (98-107) Carbon Dioxide Level 25 mmol/L (21-32) Anion Gap 10 (6-14) Blood Urea Nitrogen 47 mg/dL (8-26) Creatinine 6.4 mg/dL (0.7-1.3) Estimated GFR (Cockcroft-Gault) 8.6 BUN/Creatinine Ratio 7 (6-20) Glucose Level 147 mg/dL (70-99) Calcium Level 8.4 mg/dL (8.5-10.1) Total Bilirubin 0.6 mg/dL (0.2-1.0) Aspartate Amino Transf (AST/SGOT) 28 U/L (15-37) Alanine Aminotransferase (ALT/SGPT) 9 U/L (16-63) Alkaline Phosphatase 94 U/L (46-116) Total Protein 5.1 g/dL (6.4-8.2) Albumin 1.8 g/dL (3.4-5.0) Albumin/Globulin Ratio 0.5 (1.0-1.7) Review of Systems Review of Systems: Pt co pain Pt denies fever Pt denies NOLAN Assessment and Plan Assessmemt and Plan Problems Medical Problems: (1) Nausea & vomiting Status: Acute (2) Pancreatic cancer Status: Acute Assessment Multiple myeloma ESRD Hyperkalemia Nausea and vomiting Plan Discharge in progress to hospice Pain management Appreciate subspecialist input Left prescriptions for Dilaudid and ativan Home meds DNR Comment Review of Relevant I have reviewed the following items bhargav (where applicable) has been applied. Medications: Current Medications Medications (Trade) Dose Ordered Sig/David Route PRN Reason Start Time Stop Time Status Last Admin Dose Admin Hydromorphone HCl (Dilaudid) 1 mg PRN Q4HRS PRN PO MODERATE PAIN 06/18/19 16:45 06/19/19 08:37 Nortriptyline HCl (Pamelor) 25 mg QHS PO 06/18/19 21:00 06/18/19 20:43 Calcium Acetate (Phoslo) 2,001 mg TIDWMEALS PO 06/18/19 17:00 06/18/19 17:57 Ondansetron HCl (Zofran Odt) 4 mg PRN Q6HRS PRN PO NAUSEA/VOMITING 06/18/19 17:00 06/18/19 17:27 Fentanyl (Duragesic 12mcg/ Hr Patch) 1 patch Q3DAYS TD 06/18/19 16:45 06/18/19 17:22 GM FAUSTIN III DO Jun 19, 2019 11:28
[2019-06-19 12:30] VITALS: BP 95/58
[2019-06-19] MEDS: CALCIUM ACETATE 667 MG CAPSULE PO SCH (13:01)
--- NOTE | 2019-06-19 13:53 | NUR ---
SS following up with discharge planning. Discharge orders received for return to [facility], ; fax [phone], with [facility], ; fax [phone]. SS phoned and faxed discharge orders to [facility] and [facility]. Pt will discharge today and return to [facility] between 1530 and 1600 via [facility]. Pt, pt's sister, and pt's RN notified.
[2019-06-19] MEDS: ONDANSETRON ODT 4 MG TAB.RAPDIS. PO PRN (14:23)
[2019-06-19] MEDS ORDERED: ONDANSETRON PF 4 MG/2 ML VIAL. IVP ONE (15:00)
--- NOTE | 2019-06-19 15:36 | NUR ---
Discharge: [phone]. Report called to Med at 1537. All belongings with patient.
== END 2019-06-19 15:50 | disposition hospice, home (50) | DRG 947 ==
LOC: ER 22:51 → 2 SOUTH 06-18 00:20
PROVIDERS: ADMIT Internal Medicine; ATTEND Internal Medicine
DX: G89.3 Neoplasm related pain (acute) (chronic) (principal); N18.6 End stage renal disease; C90.00 Multiple myeloma not having achieved remission; I12.0 Hypertensive chronic kidney disease with stage 5 chronic kidney disease or end stage renal disease; D61.818 Other pancytopenia; M48.54XA Collapsed vertebra, not elsewhere classified, thoracic region, initial encounter for fracture; C25.9 Malignant neoplasm of pancreas, unspecified; R18.8 Other ascites; F41.9 Anxiety disorder, unspecified; Z51.5 Encounter for palliative care; D63.1 Anemia in chronic kidney disease; E87.5 Hyperkalemia; Z66 Do not resuscitate; E11.22 Type 2 diabetes mellitus with diabetic chronic kidney disease; M19.90 Unspecified osteoarthritis, unspecified site; Z85.07 Personal history of malignant neoplasm of pancreas; Z85.05 Personal history of malignant neoplasm of liver; Z99.2 Dependence on renal dialysis; Z88.8 Allergy status to other drugs, medicaments and biological substances; Z88.6 Allergy status to analgesic agent; Z91.018 Allergy to other foods; Z91.013 Allergy to seafood; Z82.49 Family history of ischemic heart disease and other diseases of the circulatory system
CPT/HCPCS: 36415; 74176; 80053; 82140; 82962; 83690; 84484; 85007; 85025; 87040; 93005; 96361; 96374; 96375; J0780; J2270; J2405; J3010; J3490; J7030; Q0162; 99285-25; G0378